=== PATIENT | female | born 1940 | race Caucasian/White ===

== ENCOUNTER 2017-03-09 13:48 | Emergency (ER) | payer OTHER, MEDICAID ==
[2017-03-09 13:54] VITALS: BP 228/107; BMI 39.9
--- NOTE | 2017-03-09 16:41 | DR.GENAD ---
HPI - PCP Primary Care Physician: MAJANO - Complaint/Symptoms Chief Complaint:: PATIENT IS COMPLAINING OF BACK PAIN. PATIENT STATED THAT IT HAS HURT SINCE WEDNESDAY. IT EVEN HURTS TO BREATH - Nurses notes reviewed Nurses Notes Review: Yes - Source History Provided: Patient - Mode of Arrival Mode of Arrival: Ambulatory - Timing Onset of Chief Complaint: 03/06/17 PMH - PMH Past Medical History: Yes Past Medical History: Anxiety, Arthritis, Coronary Artery Disease, Depression, Diabetes, GERD, Hypertension Past Surgical History: Yes Surgical History: Cholecystectomy, Hysterectomy - Family History History of Family Medical Conditions: Yes Family Medical History: Diabetes Mellitus, Cancer, PA, Coronary Artery Disease, Heart Failure, Hypertension - Social History Does patient currently use any type of tobacco product: No Have you used tobacco products in the last 12 months: No Type of Tobacco Use: None Does any household member use tobacco: No Alcohol Use: None Do you use any recreational Drugs:: No - infectious screening In the last 2 months have you had wt loss of >10#?: NO Have you had fever, night sweats or hemotysis?: No Have you traveled outside the country in the last 6 months?: No Isolation: Standard PE - Vital Signs Vitals: Temperature 97.1 F Pulse Rate 71 Respiratory Rate 20 Blood Pressure [Left Arm] 138/68 Blood Pressure [Right Arm] 135/62 Blood Pressure 228/107 O2 Sat by Pulse Oximetry 97 - Discharge Plan Condition: Stable Prescriptions: Cefdinir [Omnicef Cap 300 mg] 300 mg PO BID #20 cap - Follow ups/Referrals Follow ups/Referrals: Jarvis Walker [Primary Care Provider] - 3 days - Instructions Instructions: Pleurisy, [id number], Acute Bronchitis Additional Instructions: RETURN TO ED IF WORSE.
[2017-03-09] MEDS ORDERED: TORADOL 60 MG VIAL IM ONE (17:08)
[2017-03-09] MEDS ORDERED: TORADOL 60 MG VIAL ONE (17:36)
--- NOTE | 2017-03-09 17:36 | RAD ---
Indication: Cough Exam: PA and lateral Findings: The heart is borderline enlarged but unchanged. The pulmonary vessels are normal. No consol idation or effusion is seen. The bones are intact. There are mild linear densities along the lung bas es which are more prominent. The bones are intact. Impression: Stable borderline cardiomegaly . Mild discoid atelectasis or scarring along the lung bases which is more prominent. Reported By:
== END 2017-03-09 18:19 | disposition home or self-care (01) ==
LOC: ER 14:12
DX: R09.1 Pleurisy (principal); J20.9 Acute bronchitis, unspecified; J98.11 Atelectasis
CPT/HCPCS: 71020; 96372; 99282; J1885

== ENCOUNTER 2018-04-15 13:25 | Observation (INO) ==
[2018-04-15] MEDS ORDERED: TUSSIONEX PENNKINETIC SUSP PO PRN (14:00)
[2018-04-15 14:33] LABS: BASOPHILS % (AUTO) 0.6 % (0.2-1.0); EOSINOPHILS # (AUTO) 0.1 x10^3/uL (0.0-0.2); EOSINOPHILS % (AUTO) 1.6 % (0.9-2.9); HEMATOCRIT 41.2 % (36.0-47.0); HEMOGLOBIN 13.9 g/dL (12.0-16.0); LYMPHOCYTES # (AUTO) 1.3 X10^3/uL (1.3-2.9); LYMPHOCYTES % (AUTO) 16.4 % (21.0-51.0); MEAN CORPUSCULAR HEMOGLOBIN 30.7 pg (27.0-34.0); MEAN CORPUSCULAR HGB CONC 33.7 g/dL (33.0-35.0); MEAN CORPUSCULAR VOLUME 91.3 fL (80.0-100.0); MEAN PLATELET VOLUME 7.6 fL (7.4-11.0); MONOCYTES # (AUTO) 0.7 x10^3/uL (0.3-0.8); MONOCYTES % (AUTO) 8.5 % (0.0-13.0); NEUTROPHILS # (AUTO) 5.8 x10^3/uL (2.2-4.8); NEUTROPHILS % (AUTO) 72.9 % (42.0-75.0); PLATELET COUNT 219 X10^3/uL (150.0-450.0); RED BLOOD COUNT 4.51 X10^6/uL (3.5-5.4); RED CELL DISTRIBUTION WIDTH 14.5 % (11.6-16.5)
--- NOTE | 2018-04-15 14:43 | RAD ---
Exam: Portable chest History: 77-year-old female with fever and cough Comparison: Previous chest radiograph from 03/09/2017. Findings: Mild cardiomegaly is again seen. However no significant vascular congestion. Thoracic aorta is tortuous. Lungs are clear with no infiltrate or significant effusion on either side. Impression: Stable cardiomegaly. However no evidence of acute superimposed abnormality is seen on this exam Reported By:
[2018-04-15 14:54] LABS: ALBUMIN 3.2 g/dL (3.4-5.0); CALCIUM 8.6 mg/dL (8.5-10.1); CARBON DIOXIDE 32.8 mmol/L (21-32); COR CA(FOR HYPOALB) 9.2 mg/dL (8.5-10.1); CREATININE 1.25 mg/dL (0.55-1.02); TOTAL PROTEIN 6.9 g/dL (6.4-8.2)
[2018-04-15] MEDS ORDERED: NS 1/2 1000 ML IV 1,000 ML IV ONE (15:08)
[2018-04-15] MEDS: FORTAZ or TAZICEF VIAL INJ IVP SCH ×2 (15:20→21:21)
[2018-04-15] MEDS: LEVAQUIN PREMIX IV 750 MG 750 MG/150 ML BAG IV SCH (15:21)
[2018-04-15] MEDS: NS 1/2 1000 ML IV 1,000 ML IV SCH (15:21)
[2018-04-15] MEDS ORDERED: KLOR-CON PO PRN ×2 (16:13→16:33)
[2018-04-15] MEDS ORDERED: POTASSIUM CHLORIDE LIQ 20 MEQ UDC PO PRN ×2 (16:13→16:33)
[2018-04-15] MEDS ORDERED: MICRO K EXTEN CAP 10 MEQ PO PRN ×2 (16:13→16:33)
[2018-04-15] MEDS ORDERED: POTASSIUM CHL 40 MEQ/NS 0.45% 500 ML IV PRN ×2 (16:13→16:33)
[2018-04-15] MEDS ORDERED: POTASSIUM CHL 60 MEQ/NS 0.45% 500 ML IV PRN ×2 (16:13→16:33)
[2018-04-15] MEDS ORDERED: K-DUR TAB 20 MEQ PO PRN ×2 (16:13→16:33)
[2018-04-15] MEDS ORDERED: K-RIDER 10 MEQ/NS 100 ML 10 MEQ/100 ML BAG IV PRN ×2 (16:13→16:33)
[2018-04-15] MEDS: ROBITUSSIN DM PO SCH ×2 (16:32→21:21)
[2018-04-15] MEDS: DUONEB 0.5 MG/3 MG NEB SCH ×2 (16:40→20:19)
[2018-04-15] MEDS: COREG TAB 6.25 MG PO SCH (21:21)
[2018-04-15] MEDS: NEURONTIN TAB 600 MG PO SCH (21:22)
[2018-04-15] MEDS: CORDARONE TAB 200 MG PO SCH (21:23)
[2018-04-15] MEDS: ELIQUIS PO SCH (21:24)
[2018-04-15] MEDS: SNACK - Diabetic Appropriate PO SCH (21:57)
[2018-04-16] MEDS ORDERED: NS 1/2 1000 ML IV 1,000 ML IV ONE ×2 (04:03→17:38)
[2018-04-16] MEDS: DUONEB 0.5 MG/3 MG NEB SCH ×6 (04:39→21:00)
[2018-04-16] MEDS: NS 1/2 1000 ML IV 1,000 ML IV SCH ×2 (04:45→17:41)
[2018-04-16 05:03] LABS: BASOPHILS % (AUTO) 0.4 % (0.2-1.0); EOSINOPHILS # (AUTO) 0.1 x10^3/uL (0.0-0.2); EOSINOPHILS % (AUTO) 1.6 % (0.9-2.9); HEMATOCRIT 38.9 % (36.0-47.0); HEMOGLOBIN 12.9 g/dL (12.0-16.0); LYMPHOCYTES # (AUTO) 1.5 X10^3/uL (1.3-2.9); LYMPHOCYTES % (AUTO) 21.4 % (21.0-51.0); MEAN CORPUSCULAR HEMOGLOBIN 30.6 pg (27.0-34.0); MEAN CORPUSCULAR VOLUME 92.5 fL (80.0-100.0); MEAN PLATELET VOLUME 7.6 fL (7.4-11.0); MONOCYTES # (AUTO) 0.7 x10^3/uL (0.3-0.8); MONOCYTES % (AUTO) 9.1 % (0.0-13.0); NEUTROPHILS # (AUTO) 4.8 x10^3/uL (2.2-4.8); NEUTROPHILS % (AUTO) 67.5 % (42.0-75.0); PLATELET COUNT 178 X10^3/uL (150.0-450.0); RED CELL DISTRIBUTION WIDTH 14.5 % (11.6-16.5); WHITE BLOOD COUNT 7.1 X10^3/uL (3.6-10.0)
[2018-04-16 05:13] LABS: ALANINE AMINOTRANSFERASE 17 Units/L (12-78); ALBUMIN 2.7 g/dL (3.4-5.0); ALKALINE PHOSPHATASE 63 Units/L (46-116); ASPARTATE AMINO TRANSFERASE 11 Units/L (15-37); BLOOD UREA NITROGEN 13 mg/dL (7-18); CALCIUM 8.2 mg/dL (8.5-10.1); CARBON DIOXIDE 29.8 mmol/L (21-32); CHLORIDE 106 mmol/L (98-107); COR CA(FOR HYPOALB) 9.2 mg/dL (8.5-10.1); CREATININE 1.05 mg/dL (0.55-1.02); SODIUM 143 mmol/L (136-145); eGFR NON BLACK RACES 54 (>60)
--- NOTE | 2018-04-16 05:17 | RAD ---
Chest, 1 view Indication: Shortness of breath Comparison: 04/15/2018 Findings: Cardiac silhouette enlargement is stable. Mild right basilar airspace disease has developed. The left lung is grossly clear. No significant pleural effusion. Impression: Right basilar atelectasis versus developing infiltrate. Reported By:
[2018-04-16] MEDS: FORTAZ or TAZICEF VIAL INJ IVP SCH ×3 (05:30→21:20)
[2018-04-16] MEDS: NEURONTIN TAB 600 MG PO SCH ×3 (05:31→21:20)
[2018-04-16] MEDS ORDERED: ZESTRIL TAB 20 MG ONE (08:11)
[2018-04-16] MEDS: ZESTRIL TAB 20 MG PO SCH (08:15)
[2018-04-16] MEDS: AMARYL TAB 4 MG PO SCH (08:15)
[2018-04-16] MEDS: CORDARONE TAB 200 MG PO SCH ×2 (08:16→21:16)
[2018-04-16] MEDS: COREG TAB 6.25 MG PO SCH ×2 (08:17→21:16)
[2018-04-16] MEDS: JANUVIA PO SCH (08:17)
[2018-04-16] MEDS: LEVAQUIN PREMIX IV 750 MG 750 MG/150 ML BAG IV SCH (08:18)
[2018-04-16] MEDS: ELIQUIS PO SCH ×2 (08:20→21:20)
[2018-04-16] MEDS: ROBITUSSIN DM PO SCH ×4 (08:20→21:20)
[2018-04-16 13:14] VITALS: BMI 40.5
[2018-04-16] MEDS: SNACK - Diabetic Appropriate PO SCH (21:16)
[2018-04-16] MEDS: KLONOPIN TAB 1 MG PO PRN (21:30)
[2018-04-17] MEDS: DUONEB 0.5 MG/3 MG NEB SCH ×6 (04:21→20:24)
[2018-04-17 04:58] LABS: BASOPHILS % (AUTO) 0.4 % (0.2-1.0); EOSINOPHILS # (AUTO) 0.1 x10^3/uL (0.0-0.2); EOSINOPHILS % (AUTO) 1.6 % (0.9-2.9); HEMATOCRIT 36.4 % (36.0-47.0); HEMOGLOBIN 12.4 g/dL (12.0-16.0); LYMPHOCYTES # (AUTO) 1.8 X10^3/uL (1.3-2.9); LYMPHOCYTES % (AUTO) 22.9 % (21.0-51.0); MEAN CORPUSCULAR HGB CONC 33.9 g/dL (33.0-35.0); MEAN CORPUSCULAR VOLUME 91.3 fL (80.0-100.0); MEAN PLATELET VOLUME 7.5 fL (7.4-11.0); MONOCYTES # (AUTO) 0.6 x10^3/uL (0.3-0.8); MONOCYTES % (AUTO) 7.5 % (0.0-13.0); NEUTROPHILS # (AUTO) 5.3 x10^3/uL (2.2-4.8); NEUTROPHILS % (AUTO) 67.6 % (42.0-75.0); PLATELET COUNT 166 X10^3/uL (150.0-450.0); RED BLOOD COUNT 3.99 X10^6/uL (3.5-5.4); RED CELL DISTRIBUTION WIDTH 14.7 % (11.6-16.5); WHITE BLOOD COUNT 7.8 X10^3/uL (3.6-10.0)
[2018-04-17 05:07] LABS: ALANINE AMINOTRANSFERASE 36 Units/L (12-78); ALBUMIN 2.6 g/dL (3.4-5.0); ALKALINE PHOSPHATASE 58 Units/L (46-116); ASPARTATE AMINO TRANSFERASE 31 Units/L (15-37); BLOOD UREA NITROGEN 14 mg/dL (7-18); CALCIUM 8.3 mg/dL (8.5-10.1); CARBON DIOXIDE 27.3 mmol/L (21-32); CHLORIDE 107 mmol/L (98-107); COR CA(FOR HYPOALB) 9.4 mg/dL (8.5-10.1); COR NA(FOR HYPERGLY) 142 mmol/L (136-145); SODIUM 142 mmol/L (136-145); TOTAL PROTEIN 5.8 g/dL (6.4-8.2); eGFR NON BLACK RACES 51 (>60)
[2018-04-17] MEDS ORDERED: NS 1/2 1000 ML IV 1,000 ML IV ONE ×2 (05:27→21:23)
[2018-04-17] MEDS: FORTAZ or TAZICEF VIAL INJ IVP SCH ×3 (06:09→21:06)
[2018-04-17] MEDS: NEURONTIN TAB 600 MG PO SCH ×3 (06:09→21:06)
[2018-04-17] MEDS: NS 1/2 1000 ML IV 1,000 ML IV SCH ×2 (06:50→21:26)
--- NOTE | 2018-04-17 06:58 | RAD ---
Examination: Portable AP chest History: SOB Comparison 04/16/2018 Findings: Mild stable cardiac enlargement. The lungs are now essentially clear. There is no convincing infiltrate, consolidation or focal atelectasis. Impression: Persistent cardiac enlargement. No acute pulmonary or pleural lesion identified. Reported By:
[2018-04-17] MEDS: LEVAQUIN PREMIX IV 750 MG 750 MG/150 ML BAG IV SCH (09:00)
[2018-04-17] MEDS: ROBITUSSIN DM PO SCH ×4 (09:15→21:06)
[2018-04-17] MEDS: COREG TAB 6.25 MG PO SCH ×2 (09:15→21:05)
[2018-04-17] MEDS: ELIQUIS PO SCH ×2 (09:15→21:05)
[2018-04-17] MEDS: CORDARONE TAB 200 MG PO SCH ×2 (09:20→21:13)
[2018-04-17] MEDS: JANUVIA PO SCH (09:30)
[2018-04-17] MEDS ORDERED: ZESTRIL TAB 20 MG ONE (09:37)
[2018-04-17] MEDS: AMARYL TAB 4 MG PO SCH (10:48)
[2018-04-17] MEDS: ZESTRIL TAB 20 MG PO SCH (10:49)
[2018-04-17] MEDS: KLONOPIN TAB 1 MG PO PRN (21:26)
[2018-04-17] MEDS: SNACK - Diabetic Appropriate PO SCH (21:41)
[2018-04-18] MEDS: DUONEB 0.5 MG/3 MG NEB SCH ×3 (00:48→08:43)
[2018-04-18] MEDS: NS 1/2 1000 ML IV 1,000 ML IV SCH ×2 (01:18→05:41)
[2018-04-18 05:20] LABS: BASOPHILS % (AUTO) 0.4 % (0.2-1.0); EOSINOPHILS # (AUTO) 0.2 x10^3/uL (0.0-0.2); EOSINOPHILS % (AUTO) 1.8 % (0.9-2.9); HEMATOCRIT 36.3 % (36.0-47.0); HEMOGLOBIN 12.2 g/dL (12.0-16.0); LYMPHOCYTES # (AUTO) 1.8 X10^3/uL (1.3-2.9); LYMPHOCYTES % (AUTO) 20.2 % (21.0-51.0); MEAN CORPUSCULAR HGB CONC 33.7 g/dL (33.0-35.0); MEAN CORPUSCULAR VOLUME 92.2 fL (80.0-100.0); MEAN PLATELET VOLUME 7.7 fL (7.4-11.0); MONOCYTES # (AUTO) 0.7 x10^3/uL (0.3-0.8); MONOCYTES % (AUTO) 7.5 % (0.0-13.0); NEUTROPHILS # (AUTO) 6.4 x10^3/uL (2.2-4.8); NEUTROPHILS % (AUTO) 70.1 % (42.0-75.0); PLATELET COUNT 173 X10^3/uL (150.0-450.0); RED BLOOD COUNT 3.94 X10^6/uL (3.5-5.4); RED CELL DISTRIBUTION WIDTH 14.5 % (11.6-16.5); WHITE BLOOD COUNT 9.1 X10^3/uL (3.6-10.0)
[2018-04-18] MEDS ORDERED: NS 1/2 1000 ML IV 1,000 ML IV ONE (05:34)
[2018-04-18] MEDS: NEURONTIN TAB 600 MG PO SCH (05:41)
[2018-04-18] MEDS: FORTAZ or TAZICEF VIAL INJ IVP SCH (05:41)
[2018-04-18 05:47] LABS: ALANINE AMINOTRANSFERASE 18 Units/L (12-78); ALBUMIN 2.6 g/dL (3.4-5.0); ALKALINE PHOSPHATASE 59 Units/L (46-116); ASPARTATE AMINO TRANSFERASE 12 Units/L (15-37); BLOOD UREA NITROGEN 16 mg/dL (7-18); CALCIUM 8.4 mg/dL (8.5-10.1); CARBON DIOXIDE 28.7 mmol/L (21-32); COR CA(FOR HYPOALB) 9.5 mg/dL (8.5-10.1); CREATININE 1.05 mg/dL (0.55-1.02); SODIUM 144 mmol/L (136-145); TOTAL PROTEIN 5.8 g/dL (6.4-8.2); eGFR NON BLACK RACES 54 (>60)
[2018-04-18 06:24] LABS: CHLORIDE 105 mmol/L (98-107)
--- NOTE | 2018-04-18 07:00 | RAD ---
History: Shortness of breath Study: AP chest Comparison: Yesterday Findings: The heart remains enlarged with a tortuous descending aorta. The lungs are clear without edema or effusion or congestion demonstrated. Impression: Unchanged cardiomegaly, otherwise unremarkable Reported By:
[2018-04-18] MEDS ORDERED: ZESTRIL TAB 20 MG ONE (08:42)
[2018-04-18] MEDS: LEVAQUIN PREMIX IV 750 MG 750 MG/150 ML BAG IV SCH (09:04)
[2018-04-18] MEDS: ZESTRIL TAB 20 MG PO SCH (09:05)
[2018-04-18] MEDS: ROBITUSSIN DM PO SCH (09:05)
[2018-04-18] MEDS: COREG TAB 6.25 MG PO SCH (09:05)
[2018-04-18] MEDS: AMARYL TAB 4 MG PO SCH (09:05)
[2018-04-18] MEDS: JANUVIA PO SCH (09:05)
[2018-04-18] MEDS: ELIQUIS PO SCH (09:06)
[2018-04-18] MEDS: CORDARONE TAB 200 MG PO SCH (09:06)
[2018-04-18 09:52] VITALS: BP 178/93
== END 2018-04-18 12:20 | disposition home or self-care (01) ==
LOC: MED/SURG 13:25 → INTOOBSV 13:25
PROVIDERS: ADMIT Internal Medicine; ATTEND Internal Medicine
DX: E11.65 Type 2 diabetes mellitus with hyperglycemia; Z79.01 Long term (current) use of anticoagulants; I48.2 Chronic atrial fibrillation; R50.9 Fever, unspecified; Z79.899 Other long term (current) drug therapy; M79.10 Myalgia, unspecified site; I10 Essential (primary) hypertension; J18.0 Bronchopneumonia, unspecified organism
CPT/HCPCS: 36415; 71010; 71045; 80053; 83735; 84132; 85025; 87040; 87070; 87077; 87186; 87205; 87502; 94640; 94760; 96367; 96374; A4222; G0378; J0713; J1956; J7620

== ENCOUNTER 2018-04-21 23:20 | Inpatient (IN) ==
[2018-04-21 23:42] VITALS: BMI 39.5
[2018-04-22] MEDS ORDERED: DUONEB 0.5 MG/3 MG ONE (01:12)
[2018-04-22] MEDS: DUONEB 0.5 MG/3 MG NEB ONE (01:15)
--- NOTE | 2018-04-22 01:36 | DR.AMS ---
HPI Time Seen Time Seen by Provider: 04/21/18 23:31 PCP Primary Care Physician: DELLA HPI Comment HPI Comment: AMS AND AUDIBLE WHEEZING TODAY. DISCHARGE FROM HOSPITAL FOR PNEUMONIA. PLACE ON TESSALON PERLES WHICH IS NEW TO PATIENT AND LEVAQUIN. HER CO NDITION IS GETTING WORSE. Complaint Cheif Complaint Doctors Comments: AMS, AUDIBLE WHEEZING. Chief Complaint:: PTS DAUGHTER STATES THAT SHE WAS DISCHARGED FROM THE HOSPITAL ON WEDNESDAY AND IS BEING TREATED FOR PNU. ON WEDNESDAY PT STARTED BEING CONFUSED AND HAS BEEN PROGRESSIVLY GETTING WORSE. ALSO PTS DAUGHTER REPORTS THAT PT IS WHEEZING AND JUST NOT ACTING RIGHT. Self Treatment fo Chief Complaint: NEB TREATMENTS Reviewed Nurses Notes Reviewed: Yes Source History Provided: Patient and Family Member Mode of Arrival Mode of Arrival: Wheelchair Timing Onset of Chief Complaint: 04/19/18 Came On: Suddenly Symptoms: Unchanged Duration Duration: Constant Duration: Hours Quality Quality: Change in Behavior and Confusion Severity Severity: Moderate Context Recent: Cough and Medication Change (STARTED TAKING TESSALON PERLES FEW DAYS AGO. NEW TO PATIENT.) Associated Signs and Symptoms Associated Signs and Symptoms: Generalized Weakness, Change in Behavior and Confusion PMH PMH Past Medical History: Yes Past Medical History: Anxiety, Arthritis, Coronary Artery Disease, Depression, Diabetes, GERD and Hypertension Past Medical History Comment: AFIB Past Surgical History: Yes Surgical History: Cholecystectomy, Hysterectomy and Tonsillectomy Family History History of Family Medical Conditions: Yes Family Medical History: [place] Social History Does patient currently use any type of tobacco product: No Have you used tobacco products in the last 12 months: No Type of Tobacco Use: None Does any household member use tobacco: No Alcohol Use: None Do you use any recreational Drugs:: No Lives With: Family Lives Where: Home infectious screening In the last 2 months have you had wt loss of >10#?: NO Have you had fever, night sweats or hemotysis?: No Have you traveled outside the country in the last 6 months?: No Isolation: Standard ROS Review of Systems Constitutional: Weakness and Fatigue; negative Fever Eyes: No Symptoms Reported ENTM: Nose Congestion Respiratoy: Moist Cough and Short of Breath Cardiovascular: Chest Pain (TIGHT) Gastrointestinal/Abdominal: No Symptoms Reported Genitourinary: No Symptoms Reported Neurological: Weakness and Problems Walking Musculoskeletal: Muscle Pain Integumentary: Dryness Hematologic/Lymphatic: Easy Bleeding and Easy Bruising Endocrine: Decreased Appetite Psychiatric: No Symptoms Reported All Other Systems: Reviewed and Negative Unable to Obtain Due To: Altered mental status PE Vitals Vital Signs: Temp Pulse Pulse Resp BP BP BP 04/22/18 03:15 77 04/22/18 03:11 81 130/66 04/22/18 03:07 82 207/104 04/22/18 03:06 82 04/22/18 02:45 86 04/22/18 02:30 81 157/85 04/22/18 02:15 77 04/22/18 02:07 81 04/22/18 02:01 80 20 154/88 04/22/18 01:30 81 18 120/67 04/22/18 01:00 82 22 116/69 04/22/18 00:38 86 20 119/64 04/21/18 23:31 97.5 F L 84 18 127/68 04/18/18 08:00 178/93 178/93 04/17/18 04:00 168/77 12/19/15 04:00 135/62 Pulse Ox 04/22/18 03:15 93 L 04/22/18 03:11 94 L 04/22/18 03:07 92 L 04/22/18 03:06 94 L 04/22/18 02:45 90 L 04/22/18 02:30 93 L 04/22/18 02:15 94 L 04/22/18 02:07 94 L 04/22/18 02:01 93 L 04/22/18 01:30 93 L 04/22/18 01:00 94 L 04/22/18 00:38 95 04/21/18 23:31 96 04/18/18 08:00 04/17/18 04:00 12/19/15 04:00 General Limitations: Altered Mental Status General Appearance: Alert and In No Apparent Distress Head Head Exam: Normal Inspection Head Exam Physical: Other (NONE REPORTED) Eyes Eye exam: PERRL and EOMI; negative Scleral Icterus and Conjunctival Injection Pupils: Regular, Round: Bilateral and Reactive: Bilateral ENT ENT Exam: Normal Exam External Ear Exam: Normal External Inspection TM/Canal Exam: Bilateral: Normal Nose Exam: Normal Nose Exam Mouth Exam: Normal Inspection Throat Exam: Normal Inspection Neck Neck Exam: Normal Inspection; negative Tenderness, Meningismus and Lymphadenopathy Chest Chest Inspection: Symmetric Chest Wall Rise and Other (AUDIBLE WHEEZING.) Respiratory Respiratory Exam: Respiratory Distress Respiratory Exam: Bilateral: Wheezing and Bilateral: Rhonchi, Left: Wheezing, Right: Wheezing, Upper: Wheezing and Lower: Wheezing and Lower: Rhonchi Cardiovascular Cardiovascular Exam: Regular Rate and Normal Rhythm Abdominal Exam Abdominal Exam: Normal Inspection, Normal Bowel Sounds and Soft Extremities Extremities Exam: Edema Back Back Exam: Normal Inspection Neurological Neurological Exam: Alert and CN II-XII Intact; negative Oriented X3 and Motor Sensory Deficit Patient Oriented To: Person and Place; negative Time Speech: Fluid Speech (SLOW SPEECH) Cranial Nerve Exam: EOM Function (II, III, IV, ): Normal, Facial Palsy (VII): Normal, Gag reflex (XI): Normal and Tongue Deviation: Normal Motor Strength - LUE: 5/5 Motor Strength - RUE: 5/5 Motor Strength - LLE: 5/5 Upper Motor Neuron Exam: Babinski Sign: Normal Skin Skin Exam: Dry MDM Additional Information Obtained Additional Information Obtained From: Old Records and Family Differential Diagnosis Metabolic: Dehydration, Hypoglycemia and Hyponatremia Structural: CVA and Mass Lesion Infectious: Sepsis COURSE Treatment Treatment: SEE ORDERS. Consultation Consultation Comments: DISCUSSPATIENT WITH DR. HULL. HE WILL ADMIT PATIENT. Education/Counseling Education/Counseling: Patient and Family Educated On: Diagnosis ROR Labs Reviewed Result Diagrams: 04/22/18 01:51 04/22/18 01:51 Laboratory: WBC 11.6 X10^3/uL (3.6-10.0) H 04/22/18 01:51 RBC 4.30 X10^6/uL (3.5-5.4) 04/22/18 01:51 Hgb 13.1 g/dL (12.0-16.0) 04/22/18 01:51 Hct 39.6 % (36.0-47.0) 04/22/18 01:51 MCV 92.0 fL (80.0-100.0) 04/22/18 01:51 MCH 30.5 pg (27.0-34.0) 04/22/18 01:51 MCHC 33.1 g/dL (33.0-35.0) 04/22/18 01:51 RDW 15.1 % (11.6-16.5) 04/22/18 01:51 Plt Count 239 X10^3/uL (150.0-450.0) 04/22/18 01:51 MPV 7.7 fL (7.4-11.0) 04/22/18 01:51 Neut % (Auto) 67.1 % (42.0-75.0) 04/22/18 01:51 Lymph % (Auto) 22.3 % (21.0-51.0) 04/22/18 01:51 [place] % (Auto) 8.2 % (0.0-13.0) 04/22/18 01:51 Eos % (Auto) 1.3 % (0.9-2.9) 04/22/18 01:51 Baso % (Auto) 1.1 % (0.2-1.0) H 04/22/18 01:51 Neut # (Auto) 7.8 x10^3/uL (2.2-4.8) H 04/22/18 01:51 Lymph # (Auto) 2.6 X10^3/uL (1.3-2.9) 04/22/18 01:51 [place] # (Auto) 0.9 x10^3/uL (0.3-0.8) H 04/22/18 01:51 Eos # (Auto) 0.2 x10^3/uL (0.0-0.2) 04/22/18 01:51 Baso # (Auto) 0.1 X10^3/uL (0.0-0.1) 04/22/18 01:51 Absolute Nucleated RBC 0.0 /100WBC 04/22/18 01:51 Sample Site Rbra 04/22/18 01:40 ABG pH 7.440 (7.35-7.45) 04/22/18 01:40 ABG pCO2 45.0 mmHg (35.0-45.0) 04/22/18 01:40 ABG pO2 79.0 mmHg (80.0-100.0) L 04/22/18 01:40 ABG HCO3 30.6 mmol/L (22-26) H* 04/22/18 01:40 ABG O2 Saturation 96.0 % (90-100) 04/22/18 01:40 ABG Base Excess 5.6 mmol/L (-2.0-2.0) H 04/22/18 01:40 Pete Test Na 04/22/18 01:40 A-a Gradient 14.0 mmHg 04/22/18 01:40 FiO2 21.0 04/22/18 01:40 Blood Gas Comments Chinmay abg well-mtf 04/22/18 01:40 Sodium 141 mmol/L (136-145) 04/22/18 01:51 Corrected Sodium 142 mmol/L (136-145) 04/22/18 01:51 Potassium 4.0 mmol/L (3.5-5.1) 04/22/18 01:51 Chloride 105 mmol/L (98-107) 04/22/18 01:51 Carbon Dioxide 29.4 mmol/L (21-32) 04/22/18 01:51 BUN 25 mg/dL (7-18) H 04/22/18 01:51 Creatinine 1.28 mg/dL (0.55-1.02) H 04/22/18 01:51 Est GFR (MDRD) Af Amer 52 (>60) L 04/22/18 01:51 Est GFR (MDRD) Non-Af 43 (>60) L 04/22/18 01:51 Glucose 151 mg/dL (65-99) H 04/22/18 01:51 Calcium 8.9 mg/dL (8.5-10.1) 04/22/18 01:51 Corrected Calcium 9.7 mg/dL (8.5-10.1) 04/22/18 01:51 Total Bilirubin 0.30 mg/dL (0.2-1.0) 04/22/18 01:51 AST 12 Units/L (15-37) L 04/22/18 01:51 ALT 19 Units/L (12-78) 04/22/18 01:51 Alkaline Phosphatase 61 Units/L (46-116) 04/22/18 01:51 Creatine Kinase 48 Units/L (26-192) 04/22/18 01:51 CK-MB (CK-2) < 1.0 ng/mL (0-4.0) 04/22/18 01:51 CK/CKMB % Calc 2.1 % (<4) 04/22/18 01:51 Troponin I < 0.02 ng/mL (0-1.5) 04/22/18 01:51 Total Protein 6.5 g/dL (6.4-8.2) 04/22/18 01:51 Albumin 3.0 g/dL (3.4-5.0) L 04/22/18 01:51 Globulin 3.5 g/dL (2.5-4.5) 04/22/18 01:51 Albumin/Globulin Ratio 0.9 Ratio (1.1-2.1) L 04/22/18 01:51 Specimen Type Clean catch urine 04/22/18 03:26 Urine Color Dark yellow (YELLOW) 04/22/18 03:26 Urine Appearance Slightly hazy (CLEAR) 04/22/18 03:26 Urine pH 5.0 (5.0 - 8.0) 04/22/18 03:26 Ur Specific [place] 1.030 (1.000-1.030) 04/22/18 03:26 Urine Protein 1+ (NEGATIVE) 04/22/18 03:26 Urine Glucose (UA) Negative (NEGATIVE) 04/22/18 03:26 Urine Ketones Negative (NEGATIVE) 04/22/18 03:26 Urine Occult Blood Negative (NEGATIVE) 04/22/18 03:26 Urine Nitrite Negative (NEGATIVE) 04/22/18 03:26 Urine Bilirubin Negative (NEGATIVE) 04/22/18 03:26 Urine Urobilinogen 1+ (NORMAL) 04/22/18 03:26 Ur Leukocyte Esterase 1+ (NEGATIVE) 04/22/18 03:26 Urine RBC 0-2 /HPF (NONE SEEN) 04/22/18 03:26 Urine WBC 3-5 /HPF (NONE SEEN) 04/22/18 03:26 Ur Squamous Epith Cells Rare /HPF (NEGATIVE) 04/22/18 03:26 Calcium Oxalate Crystal Moderate /HPF (NEGATIVE) 04/22/18 03:26 Urine Bacteria Negative /HPF (NEGATIVE) 04/22/18 03:26 Hyaline Casts Rare /LPF (NEGATIVE) 04/22/18 03:26 Urine Mucus Few /HPF (NEGATIVE) 04/22/18 03:26 Ur Culture Indicated? No/not indicated 04/22/18 03:26 XRAY XRAY Interpreted by: Radiologist XRAY Findings: REPORT ON RECORD NOTED AND DISCUSS WITH PATIENT AND HER DAUGHTER. EKG Rate: 83 [place]: Normal Rhythm: NSR and PACs ST: Ant
[2018-04-22 01:55] LABS: ABG BASE EXCESS 5.6 mmol/L (-2.0-2.0); ABG HCO3 30.6 mmol/L (22-26)
[2018-04-22 01:59] LABS: BASOPHILS # (AUTO) 0.1 X10^3/uL (0.0-0.1); BASOPHILS % (AUTO) 1.1 % (0.2-1.0); EOSINOPHILS # (AUTO) 0.2 x10^3/uL (0.0-0.2); EOSINOPHILS % (AUTO) 1.3 % (0.9-2.9); HEMATOCRIT 39.6 % (36.0-47.0); HEMOGLOBIN 13.1 g/dL (12.0-16.0); LYMPHOCYTES # (AUTO) 2.6 X10^3/uL (1.3-2.9); LYMPHOCYTES % (AUTO) 22.3 % (21.0-51.0); MEAN CORPUSCULAR HEMOGLOBIN 30.5 pg (27.0-34.0); MEAN CORPUSCULAR HGB CONC 33.1 g/dL (33.0-35.0); MEAN PLATELET VOLUME 7.7 fL (7.4-11.0); MONOCYTES # (AUTO) 0.9 x10^3/uL (0.3-0.8); MONOCYTES % (AUTO) 8.2 % (0.0-13.0); NEUTROPHILS # (AUTO) 7.8 x10^3/uL (2.2-4.8); NEUTROPHILS % (AUTO) 67.1 % (42.0-75.0); PLATELET COUNT 239 X10^3/uL (150.0-450.0); RED CELL DISTRIBUTION WIDTH 15.1 % (11.6-16.5); WHITE BLOOD COUNT 11.6 X10^3/uL (3.6-10.0)
--- NOTE | 2018-04-22 02:07 | RAD ---
Chest, 1 view Indication: Shortness of breath Comparison: 04/18/2018 Findings: There is stable cardiac silhouette enlargement. There is unchanged minimal scarring versus atelectasis of the right lung base. The lungs are otherwise grossly clear without overt edema or dense infiltrates. No large effusion. Impression: Stable cardiomegaly without acute chest process or significant change from prior. Reported By:
[2018-04-22 02:18] LABS: BLOOD UREA NITROGEN 25 mg/dL (7-18); CALCIUM 8.9 mg/dL (8.5-10.1); CARBON DIOXIDE 29.4 mmol/L (21-32); CHLORIDE 105 mmol/L (98-107); COR NA(FOR HYPERGLY) 142 mmol/L (136-145); CREATININE 1.28 mg/dL (0.55-1.02); SODIUM 141 mmol/L (136-145); TROPONIN I < 0.02 ng/mL (0-1.5); eGFR NON BLACK RACES 43 (>60)
[2018-04-22 02:22] LABS: ALANINE AMINOTRANSFERASE 19 Units/L (12-78); ALKALINE PHOSPHATASE 61 Units/L (46-116); ASPARTATE AMINO TRANSFERASE 12 Units/L (15-37); CKMB % 2.1 % (<4); COR CA(FOR HYPOALB) 9.7 mg/dL (8.5-10.1); CREATINE KINASE 48 Units/L (26-192); CREATINE KINASE MB < 1.0 ng/mL (0-4.0); TOTAL PROTEIN 6.5 g/dL (6.4-8.2)
--- NOTE | 2018-04-22 03:12 | CT ---
CT head without contrast Indication: Altered mental status Comparison: 02/10/2015 Technique: CT images of the head were obtained without contrast. Automatic exposure control was utilized. Findings: There is moderate generalized brain atrophy with concomitant ventricular and sulcal enlargement. Patchy areas of white matter hypoattenuation are similar to prior and most compatible with chronic microangiopathy. There is no acute bleed, mass effect, or abnormal extra-axial collection. No acute osseous abnormality. The visualized paranasal sinuses and mastoid air cells are clear. Impression: No acute intracranial abnormality. Reported By:
[2018-04-22 03:34] LABS: BILIRUBIN,URINE NEGATIVE (NEGATIVE); BLOOD/HEMOGLOBIN,URINE NEGATIVE (NEGATIVE); GLUCOSE, URINE NEGATIVE (NEGATIVE); KETONES,URINE NEGATIVE (NEGATIVE); LEUKOCYTE ESTERASE ,URINE 1+ (NEGATIVE); NITRITES,URINE NEGATIVE (NEGATIVE); PROTEIN,URINE 1+ (NEGATIVE); UROBILINOGEN,URINE 1+ (NORMAL)
[2018-04-22 03:44] LABS: APPEARANCE,URINE SLIGHTLY HAZY (CLEAR); BACTERIA,URINE NEGATIVE /HPF (NEGATIVE); CALCIUM OXALATE CRYSTALS,UR MODERATE /HPF (NEGATIVE); COLOR,URINE DARK YELLOW (YELLOW); HYALINE CASTS, URINE RARE /LPF (NEGATIVE); MUCUS,URINE FEW /HPF (NEGATIVE); RBC,URINE 0-2 /HPF (NONE SEEN); SQUAMOUS EPITHELIAL CELL,UR RARE /HPF (NEGATIVE)
[2018-04-22] MEDS: NS 1000 ML 1,000 ML IV SCH ×2 (05:42→21:35)
[2018-04-22] MEDS ORDERED: NS 1000 ML 1,000 ML ONE ×2 (05:42→05:52)
[2018-04-22 08:31] LABS: CKMB % 2.3 % (<4); CREATINE KINASE 44 Units/L (26-192); CREATINE KINASE MB < 1.0 ng/mL (0-4.0); TROPONIN I < 0.02 ng/mL (0-1.5)
[2018-04-22] MEDS ORDERED: XANAX PO ONE (11:28)
[2018-04-22] MEDS ORDERED: XANAX ONE (11:30)
[2018-04-22] MEDS: COREG TAB 3.125 MG PO SCH ×2 (12:26→21:34)
[2018-04-22] MEDS ORDERED: ROBITUSSIN DM PO PRN (13:00)
--- NOTE | 2018-04-22 13:08 | MRI ---
MRI Brain without contrast HISTORY: Altered mental status with weakness Comparison: CT performed earlier on same day Technique: Multiplanar multi-sequence MRI of the brain was obtained utilizing standard departmental protocol. Sagittal and axial T1 weighted images were obtained. Axial T2 and flair weighted images were performed as well. Axial diffusion weighted and ADC trace mapping was performed. Findings: Generalized cerebral atrophy with mild bilateral periventricular and deep white matter FLAIR and T2 signal hyperintensity. Small amount fluid is noted within the right mastoid air cells. The midline structures appear unremarkable. The evaluation of the brain parenchyma demonstrates no abnormal signal characteristics to suggest intraparenchymal mass or hemorrhage. No extra-axial fluid collections are observed. The ventricular system appears symmetric and nondilated. The CP angle is normal in its appearance without brainstem mass or evidence for acoustic neuroma. The flow voids on both T1 and T2 weighted imaging appear unremarkable. Evaluation of the diffusion weighted imaging does not demonstrate abnormal signal characteristics to suggest acute ischemic change. The extracranial structures are unremarkable. IMPRESSION: 1. No acute intracranial abnormality. 2. Small amount fluid opacification within the right mastoid air cells needs clinical correlation. 3. Generalized cerebral atrophy with bilateral mild periventricular and deep white matter FLAIR and T2 signal hyperintensity is nonspecific however likely resent sequela of chronic microvascular ischemic disease. Reported By:
[2018-04-22 14:26] LABS: CREATINE KINASE 37 Units/L (26-192); CREATINE KINASE MB < 1.0 ng/mL (0-4.0); TROPONIN I < 0.02 ng/mL (0-1.5)
[2018-04-22 14:27] LABS: CKMB % 2.7 % (<4)
[2018-04-22] MEDS: DUONEB 0.5 MG/3 MG NEB SCH (20:32)
[2018-04-22] MEDS: LEVAQUIN PREMIX IV 750 MG 750 MG/150 ML BAG IV SCH (21:33)
[2018-04-22] MEDS: CORDARONE TAB 200 MG PO SCH (21:34)
[2018-04-22] MEDS: JANUVIA PO SCH (21:34)
[2018-04-22] MEDS: TESSALON PERLES PO SCH ×2 (21:34→21:36)
[2018-04-22] MEDS: AMARYL TAB 4 MG PO SCH (21:34)
[2018-04-22] MEDS: ELIQUIS PO SCH (21:35)
[2018-04-22] MEDS: TUSSIONEX PENNKINETIC SUSP PO PRN (21:36)
[2018-04-22] MEDS: SNACK - Diabetic Appropriate PO SCH (21:36)
[2018-04-23] MEDS: TESSALON PERLES PO SCH ×3 (05:24→21:01)
[2018-04-23 05:27] LABS: BASOPHILS % (AUTO) 0.3 % (0.2-1.0); EOSINOPHILS # (AUTO) 0.1 x10^3/uL (0.0-0.2); EOSINOPHILS % (AUTO) 1.5 % (0.9-2.9); HEMATOCRIT 34.4 % (36.0-47.0); HEMOGLOBIN 11.7 g/dL (12.0-16.0); LYMPHOCYTES # (AUTO) 1.8 X10^3/uL (1.3-2.9); LYMPHOCYTES % (AUTO) 18.6 % (21.0-51.0); MEAN CORPUSCULAR HEMOGLOBIN 31.3 pg (27.0-34.0); MEAN CORPUSCULAR HGB CONC 33.9 g/dL (33.0-35.0); MEAN CORPUSCULAR VOLUME 92.3 fL (80.0-100.0); MEAN PLATELET VOLUME 7.9 fL (7.4-11.0); MONOCYTES # (AUTO) 0.8 x10^3/uL (0.3-0.8); MONOCYTES % (AUTO) 8.3 % (0.0-13.0); NEUTROPHILS # (AUTO) 6.8 x10^3/uL (2.2-4.8); NEUTROPHILS % (AUTO) 71.3 % (42.0-75.0); PLATELET COUNT 181 X10^3/uL (150.0-450.0); RED BLOOD COUNT 3.73 X10^6/uL (3.5-5.4); RED CELL DISTRIBUTION WIDTH 14.8 % (11.6-16.5); WHITE BLOOD COUNT 9.6 X10^3/uL (3.6-10.0)
[2018-04-23 05:38] LABS: ALANINE AMINOTRANSFERASE 18 Units/L (12-78); ALBUMIN 2.5 g/dL (3.4-5.0); ALKALINE PHOSPHATASE 54 Units/L (46-116); ASPARTATE AMINO TRANSFERASE 14 Units/L (15-37); BLOOD UREA NITROGEN 22 mg/dL (7-18); CALCIUM 8.2 mg/dL (8.5-10.1); CARBON DIOXIDE 29.6 mmol/L (21-32); CHLORIDE 107 mmol/L (98-107); CHOL/HDL RATIO 3.6 (0.0-5.0); CHOLESTEROL 155 mg/dL (0-200); COR CA(FOR HYPOALB) 9.4 mg/dL (8.5-10.1); HDL CHOLESTEROL 43 mg/dL (40-60); SODIUM 143 mmol/L (136-145); TOTAL PROTEIN 5.6 g/dL (6.4-8.2); TRIGLYCERIDES 86 mg/dL (0-150); eGFR NON BLACK RACES 57 (>60)
[2018-04-23] MEDS: DUONEB 0.5 MG/3 MG NEB SCH ×4 (08:52→21:32)
[2018-04-23] MEDS: JANUVIA PO SCH (09:02)
[2018-04-23] MEDS: COREG TAB 3.125 MG PO SCH ×2 (09:02→20:28)
[2018-04-23] MEDS: ELIQUIS PO SCH ×2 (09:02→20:28)
[2018-04-23] MEDS: CORDARONE TAB 200 MG PO SCH (09:02)
[2018-04-23] MEDS: LEVAQUIN PREMIX IV 750 MG 750 MG/150 ML BAG IV SCH (09:02)
[2018-04-23] MEDS: AMARYL TAB 4 MG PO SCH (09:03)
[2018-04-23] MEDS: NS 1000 ML 1,000 ML IV SCH ×2 (09:26→20:29)
[2018-04-23] MEDS: DUONEB 0.5 MG/3 MG NEB ONE (17:19)
[2018-04-23] MEDS: SNACK - Diabetic Appropriate PO SCH (20:28)
[2018-04-23] MEDS: TUSSIONEX PENNKINETIC SUSP PO PRN (20:29)
--- NOTE | 2018-04-23 21:38 | PCM.PROG ---
Progress Note - Progress Note for Day of Date of Exam: 04/23/18 - Subjective Subjective: WAS ADMITTED FOR ALTERED MENTAL STATUS AND GENERALIZED WEAKNESS. SHE WAS RECENTLY DISCHARGE FROM THE HOSPITAL FOR BRONCHOPNEUMONIA. SHE CONTINUES WITH SHORTNESS OF BREATH AND A NON-PRODUCTIVE COUGH AT TIMES. FAMILY REPORTS THAT SHE CONTINUES WITH CONFUSION AND DISORIENTATION AT TIMES. IT IS INTERMITTENT. ON EXAMINATION, HEART IS REGULAR IN RATE AND RHYTHM. BILATERAL LUNGS ARE NOTED WITH DIMINISHED LUNG SOUNDS THROUGHOUT. ABDOMEN IS ROUND, SOFT, AND NON-TENDER WITH NORMAL BOWEL SOUNDS NOTED IN ALL QUADRANTS. HER VITALS THIS MORNING ARE 97.6-74-20-97%-137/76. LABS WERE OBTAINED. ABNORMAL LAB VALUES INCLUDE THE FOLLOWIN.7, HCT 34.4, BUN 22, CALCIUM 8.2, AST 14, TOTAL PROTE IN 5.6, ALBUMIN 2.5. CARDIAC ENZYMES HAVE BEEN WITHIN NORMAL LIMITS. WE OBTAINED A BRAIN MRI YESTERDAY. IT REVEALED: No acute intracranial abnormality. Small amount fluid opacification within the right mastoid air cells needs clinical correlation. Generalized cerebral atrophy with bilateral mild periventricular and deep white matter FLAIR and T2 signal hyperintensity is nonspecific however likely resent sequela of chronic microvascular ischemic disease. SHE IS ALREADY TAKING ELIQUIS 5MG PO BID. WE WILL CONTINUE WITH IV HYDRATION, BLOOD PRESSURE AND BLOOD SUGAR CONTROL, IV ANTIBIOTICS, AND RESPIRATORY TREATMENTS TODAY. OTHERWISE, WE WILL FOLLOW UP WITH AM LABS AND CONTINUE TO MONITOR. - Past Medical Family Social History Past Med/Fam/Surg Hx: No changes since H&P Allergies: Allergies No Known Drug Allergies Allergy (Verified 04/15/18 14:29) - Review of Systems ROS: No change since H&P - Vital Signs and I&O's Vital Signs: Temperature 97.5 F Pulse Rate [Right] 91 Pulse Rate 77 Respiratory Rate 18 Blood Pressure [Right Arm] 154/88 Blood Pressure [Left Arm] 134/64 Blood Pressure [Right Arm] 135/62 Blood Pressure 105/54 O2 Sat by Pulse Oximetry 96 Intake and Output: Intake & Output 04/21/18 04/22/18 04/23/18 04/24/18 11:59 11:59 11:59 11:59 Intake Total 0 / 0 2230 / 2230 840 / 840 Balance 0 / 0 2230 / 2230 840 / 840 - Physical Exam Oriented: Person Eyes: Normal Ear: Normal Nose: Normal Throat: Normal Respiratory: Generalized, Diminished Cardiovascular: Normal : Normal Auscultation: Bowel Sounds: Normal Palpation: Normal Tenderness: Normal Skin: Normal Musculoskeletal: Normal Psychiatric: Normal Mood Description: Calm Affect: Normal Speech Pattern: Clear, Appropriate - Laboratory and Diagnostics Result Diagrams: 04/23/18 04:23 04/23/18 04:23 Labs: Laboratory WBC 9.6 X10^3/uL (3.6-10.0) 04/23/18 04:23 RBC 3.73 X10^6/uL (3.5-5.4) 04/23/18 04:23 Hgb 11.7 g/dL (12.0-16.0) L 04/23/18 04:23 Hct 34.4 % (36.0-47.0) L 04/23/18 04:23 MCV 92.3 fL (80.0-100.0) 04/23/18 04:23 MCH 31.3 pg (27.0-34.0) 04/23/18 04:23 MCHC 33.9 g/dL (33.0-35.0) 04/23/18 04:23 RDW 14.8 % (11.6-16.5) 04/23/18 04:23 Plt Count 181 X10^3/uL (150.0-450.0) 04/23/18 04:23 MPV 7.9 fL (7.4-11.0) 04/23/18 04:23 Neut % (Auto) 71.3 % (42.0-75.0) 04/23/18 04:23 Lymph % (Auto) 18.6 % (21.0-51.0) L 04/23/18 04:23 [place] % (Auto) 8.3 % (0.0-13.0) 04/23/18 04:23 Eos % (Auto) 1.5 % (0.9-2.9) 04/23/18 04:23 Baso % (Auto) 0.3 % (0.2-1.0) 04/23/18 04:23 Neut # (Auto) 6.8 x10^3/uL (2.2-4.8) H 04/23/18 04:23 Lymph # (Auto) 1.8 X10^3/uL (1.3-2.9) 04/23/18 04:23 [place] # (Auto) 0.8 x10^3/uL (0.3-0.8) 04/23/18 04:23 Eos # (Auto) 0.1 x10^3/uL (0.0-0.2) 04/23/18 04:23 Baso # (Auto) 0.0 X10^3/uL (0.0-0.1) 04/23/18 04:23 Absolute Nucleated RBC 0.1 /100WBC 04/23/18 04:23 Sample Site Rbra 04/22/18 01:40 ABG pH 7.440 (7.35-7.45) 04/22/18 01:40 ABG pCO2 45.0 mmHg (35.0-45.0) 04/22/18 01:40 ABG pO2 79.0 mmHg (80.0-100.0) L 04/22/18 01:40 ABG HCO3 30.6 mmol/L (22-26) H* 04/22/18 01:40 ABG O2 Saturation 96.0 % (90-100) 04/22/18 01:40 ABG Base Excess 5.6 mmol/L (-2.0-2.0) H 04/22/18 01:40 Pete Test Na 04/22/18 01:40 A-a Gradient 14.0 mmHg 04/22/18 01:40 FiO2 21.0 04/22/18 01:40 Blood Gas Comments Chinmay abg well-mtf 04/22/18 01:40 Sodium 143 mmol/L (136-145) 04/23/18 04:23 Corrected Sodium TNP 04/23/18 04:23 Potassium 3.8 mmol/L (3.5-5.1) 04/23/18 04:23 Chloride 107 mmol/L (98-107) 04/23/18 04:23 Carbon Dioxide 29.6 mmol/L (21-32) 04/23/18 04:23 BUN 22 mg/dL (7-18) H 04/23/18 04:23 Creatinine 1.00 mg/dL (0.55-1.02) 04/23/18 04:23 Est GFR (MDRD) Af Amer > 60 (>60) 04/23/18 04:23 Est GFR (MDRD) Non-Af 57 (>60) L 04/23/18 04:23 Glucose 97 mg/dL (65-99) 04/23/18 04:23 POC Glucose (mg/dL) 153 mg/dL (65-99) H 04/22/18 20:08 Calcium 8.2 mg/dL (8.5-10.1) L 04/23/18 04:23 Corrected Calcium 9.4 mg/dL (8.5-10.1) 04/23/18 04:23 Total Bilirubin 0.20 mg/dL (0.2-1.0) 04/23/18 04:23 AST 14 Units/L (15-37) L 04/23/18 04:23 ALT 18 Units/L (12-78) 04/23/18 04:23 Alkaline Phosphatase 54 Units/L (46-116) 04/23/18 04:23 Creatine Kinase 37 Units/L (26-192) 04/22/18 13:57 CK-MB (CK-2) < 1.0 ng/mL (0-4.0) 04/22/18 13:57 CK/CKMB % Calc 2.7 % (<4) 04/22/18 13:57 Troponin I < 0.02 ng/mL (0-1.5) 04/22/18 13:57 Total Protein 5.6 g/dL (6.4-8.2) L 04/23/18 04:23 Albumin 2.5 g/dL (3.4-5.0) L 04/23/18 04:23 Globulin 3.1 g/dL (2.5-4.5) 04/23/18 04:23 Albumin/Globulin Ratio 0.8 Ratio (1.1-2.1) L 04/23/18 04:23 Triglycerides 86 mg/dL (0-150) 04/23/18 04:23 Cholesterol 155 mg/dL (0-200) 04/23/18 04:23 LDL Cholesterol, Calc 95 mg/dL (0-100) 04/23/18 04:23 HDL Cholesterol 43 mg/dL (40-60) 04/23/18 04:23 Cholesterol/HDL Ratio 3.6 (0.0-5.0) 04/23/18 04:23 Specimen Type Clean catch urine 02/08/19 03:26 Urine Color Dark yellow (YELLOW) 04/22/18 03:26 Urine Appearance Slightly hazy (CLEAR) 04/22/18 03:26 Urine pH 5.0 (5.0 - 8.0) 04/22/18 03:26 Ur Specific [place] 1.030 (1.000-1.030) 04/22/18 03:26 Urine Protein 1+ (NEGATIVE) 04/22/18 03:26 Urine Glucose (UA) Negative (NEGATIVE) 04/22/18 03:26 Urine Ketones Negative (NEGATIVE) 04/22/18 03:26 Urine Occult Blood Negative (NEGATIVE) 04/22/18 03:26 Urine Nitrite Negative (NEGATIVE) 04/22/18 03:26 Urine Bilirubin Negative (NEGATIVE) 04/22/18 03:26 Urine Urobilinogen 1+ (NORMAL) 04/22/18 03:26 Ur Leukocyte Esterase 1+ (NEGATIVE) 04/22/18 03:26 Urine RBC 0-2 /HPF (NONE SEEN) 04/22/18 03:26 Urine WBC 3-5 /HPF (NONE SEEN) 04/22/18 03:26 Ur Squamous Epith Cells Rare /HPF (NEGATIVE) 04/22/18 03:26 Calcium Oxalate Crystal Moderate /HPF (NEGATIVE) 04/22/18 03:26 Urine Bacteria Negative /HPF (NEGATIVE) 04/22/18 03:26 Hyaline Casts Rare /LPF (NEGATIVE) 04/22/18 03:26 Urine Mucus Few /HPF (NEGATIVE) 04/22/18 03:26 Ur Culture Indicated? No/not indicated 04/22/18 03:26 - Plan (1) TIA (transient ischemic attack) Status: Acute Plan: ELIQUIS 5MG PO BID, CONTINUE TO MONITOR (2) Bronchitis Status: Acute Plan: IV LEVAQUIN, RESPIRATORY TX, SUPPLEMENTAL OXYGEN, CONTINUE TO MONITOR (3) Diabetes mellitus, type 2 Status: Chronic Qualifiers: Diabetes mellitus terminal system operator insulin use: with fdc use Diabetes mellitus complication status: without complication Qualified Code(s): E11.9 - Type 2 diabetes mellitus without complications; Z79.4 - jail (current) use of insulin Plan: MONITOR OTBS, CONTINUE HOME MEDS (4) Hypertension Status: Acute Qualifiers: Hypertension type: essential hypertension Plan: CONTINUE HOME MEDS
[2018-04-24] MEDS: TESSALON PERLES PO SCH ×3 (05:00→21:22)
[2018-04-24 05:21] LABS: BASOPHILS % (AUTO) 0.4 % (0.2-1.0); EOSINOPHILS # (AUTO) 0.1 x10^3/uL (0.0-0.2); EOSINOPHILS % (AUTO) 1.1 % (0.9-2.9); HEMATOCRIT 36.2 % (36.0-47.0); HEMOGLOBIN 11.8 g/dL (12.0-16.0); LYMPHOCYTES # (AUTO) 1.6 X10^3/uL (1.3-2.9); LYMPHOCYTES % (AUTO) 18.3 % (21.0-51.0); MEAN CORPUSCULAR HEMOGLOBIN 30.5 pg (27.0-34.0); MEAN CORPUSCULAR HGB CONC 32.7 g/dL (33.0-35.0); MEAN CORPUSCULAR VOLUME 93.2 fL (80.0-100.0); MEAN PLATELET VOLUME 7.8 fL (7.4-11.0); MONOCYTES # (AUTO) 0.7 x10^3/uL (0.3-0.8); MONOCYTES % (AUTO) 7.9 % (0.0-13.0); NEUTROPHILS # (AUTO) 6.3 x10^3/uL (2.2-4.8); NEUTROPHILS % (AUTO) 72.3 % (42.0-75.0); PLATELET COUNT 177 X10^3/uL (150.0-450.0); RED BLOOD COUNT 3.88 X10^6/uL (3.5-5.4); RED CELL DISTRIBUTION WIDTH 14.7 % (11.6-16.5); WHITE BLOOD COUNT 8.8 X10^3/uL (3.6-10.0)
[2018-04-24 05:32] LABS: ALANINE AMINOTRANSFERASE 20 Units/L (12-78); ALBUMIN 2.7 g/dL (3.4-5.0); ALKALINE PHOSPHATASE 62 Units/L (46-116); ASPARTATE AMINO TRANSFERASE 15 Units/L (15-37); BLOOD UREA NITROGEN 15 mg/dL (7-18); CALCIUM 8.4 mg/dL (8.5-10.1); CARBON DIOXIDE 31.2 mmol/L (21-32); CHLORIDE 108 mmol/L (98-107); COR CA(FOR HYPOALB) 9.4 mg/dL (8.5-10.1); COR NA(FOR HYPERGLY) 144 mmol/L (136-145); CREATININE 1.12 mg/dL (0.55-1.02); SODIUM 143 mmol/L (136-145); TOTAL PROTEIN 5.8 g/dL (6.4-8.2); eGFR NON BLACK RACES 50 (>60)
[2018-04-24] MEDS: DUONEB 0.5 MG/3 MG NEB SCH ×4 (08:44→20:32)
[2018-04-24] MEDS: LEVAQUIN PREMIX IV 750 MG 750 MG/150 ML BAG IV SCH (08:51)
[2018-04-24] MEDS: CORDARONE TAB 200 MG PO SCH (08:52)
[2018-04-24] MEDS: AMARYL TAB 4 MG PO SCH (08:53)
[2018-04-24] MEDS: COREG TAB 3.125 MG PO SCH ×2 (08:53→20:28)
[2018-04-24] MEDS: JANUVIA PO SCH (08:53)
[2018-04-24] MEDS: ELIQUIS PO SCH ×2 (08:53→20:28)
[2018-04-24] MEDS: NS 1000 ML 1,000 ML IV SCH (08:59)
[2018-04-24] MEDS: MUCINEX DM PO SCH ×2 (11:25→20:29)
[2018-04-24] MEDS ORDERED: LEVSIN/MAALOX/LIDOC VISC PO PRN (14:14)
[2018-04-24] MEDS ORDERED: LEVSIN/MAALOX/LIDOC VISC ONE (14:20)
--- NOTE | 2018-04-24 20:15 | PCM.PROG ---
Progress Note - Progress Note for Day of Date of Exam: 04/24/18 - Subjective Subjective: WAS ADMITTED FOR ALTERED MENTAL STATUS AND GENERALIZED WEAKNESS. SHE WAS RECENTLY DISCHARGE FROM THE HOSPITAL FOR BRONCHOPNEUMONIA. BRAIN CT SUGGEST THAT PATIENT MAY HAVE HAD A TIA. SHE CONTINUES WITH SHORTNESS OF BREATH AND A NON-PRODUCTIVE COUGH AT TIMES. FAMILY REPORTS THAT SHE CONTINUES WITH CONFUSION AND DISORIENTATION AT TIMES. ON EXAMINATION, HEART IS REGULAR IN RATE AND RHYTHM. BILATERAL LUNGS ARE NOTED WITH DIMINISHED LUNG SOUNDS THROUGHOUT. ABDOMEN IS ROUND, SOFT, AND NON-TENDER WITH NORMAL BOWEL SOUNDS NOTED IN ALL QUADRANTS. HER VITALS THIS MORNING ARE 97.8-82-20-97%-189/94. LABS WERE OBTAINED. ABNORMAL LAB VALUES INCLUDE THE FOLLOWING: HCT 11.8, CHLORIDE 108, CREATININE 1.12, GLUCOSE 143, CALCIUM 8.4, TOTAL PROTEIN 5.8, ALBUMIN 2.7. TODAY, WE WILL CONTINUE WITH IV HYDRATION, BLOOD PRESSURE AND BLOOD SUGAR CONTROL, IV ANTIBIOTICS, AND RESPIRATORY TREATMENTS TODAY. WE WILL ADD MUCINEX DM 2 TABS PO BID. OTHERWISE, WE WILL FOLLOW UP WITH AM LABS AND CONTINUE TO MONITOR. - Past Medical Family Social History Past Med/Fam/Surg Hx: No changes since H&P Allergies: Allergies No Known Drug Allergies Allergy (Verified 04/15/18 14:29) - Review of Systems ROS: No change since H&P - Vital Signs and I&O's Vital Signs: Temperature 98.0 F Pulse Rate [Right] 96 Pulse Rate 92 Respiratory Rate 20 Blood Pressure [Right Arm] 154/88 Blood Pressure [Left Arm] 132/63 Blood Pressure [Right Arm] 135/62 Blood Pressure 105/54 O2 Sat by Pulse Oximetry 96 Intake and Output: Intake & Output 04/22/18 04/23/18 04/24/18 04/25/18 11:59 11:59 11:59 11:59 Intake Total 0 / 0 2230 / 2230 2140 / 2140 1000 / 1000 Balance 0 / 0 2230 / 2230 2140 / 2140 1000 / 1000 - Physical Exam Oriented: Person Eyes: Normal Ear: Normal Nose: Normal Throat: Normal Respiratory: Generalized, Diminished Cardiovascular: Normal : Normal Auscultation: Bowel Sounds: Normal Tenderness: Normal Skin: Normal Musculoskeletal: Normal Psychiatric: Normal Mood Description: Calm Affect: Normal Speech Pattern: Clear, Appropriate - Laboratory and Diagnostics Result Diagrams: 04/24/18 04:47 04/24/18 04:47 Labs: Laboratory WBC 8.8 X10^3/uL (3.6-10.0) 04/24/18 04:47 RBC 3.88 X10^6/uL (3.5-5.4) 04/24/18 04:47 Hgb 11.8 g/dL (12.0-16.0) L 04/24/18 04:47 Hct 36.2 % (36.0-47.0) 04/24/18 04:47 MCV 93.2 fL (80.0-100.0) 04/24/18 04:47 MCH 30.5 pg (27.0-34.0) 04/24/18 04:47 MCHC 32.7 g/dL (33.0-35.0) L 04/24/18 04:47 RDW 14.7 % (11.6-16.5) 04/24/18 04:47 Plt Count 177 X10^3/uL (150.0-450.0) 04/24/18 04:47 MPV 7.8 fL (7.4-11.0) 04/24/18 04:47 Neut % (Auto) 72.3 % (42.0-75.0) 04/24/18 04:47 Lymph % (Auto) 18.3 % (21.0-51.0) L 04/24/18 04:47 [place] % (Auto) 7.9 % (0.0-13.0) 04/24/18 04:47 Eos % (Auto) 1.1 % (0.9-2.9) 04/24/18 04:47 Baso % (Auto) 0.4 % (0.2-1.0) 04/24/18 04:47 Neut # (Auto) 6.3 x10^3/uL (2.2-4.8) H 04/24/18 04:47 Lymph # (Auto) 1.6 X10^3/uL (1.3-2.9) 04/24/18 04:47 [place] # (Auto) 0.7 x10^3/uL (0.3-0.8) 04/24/18 04:47 Eos # (Auto) 0.1 x10^3/uL (0.0-0.2) 04/24/18 04:47 Baso # (Auto) 0.0 X10^3/uL (0.0-0.1) 04/24/18 04:47 Absolute Nucleated RBC 0.1 /100WBC 04/24/18 04:47 Sample Site Rbra 04/22/18 01:40 ABG pH 7.440 (7.35-7.45) 04/22/18 01:40 ABG pCO2 45.0 mmHg (35.0-45.0) 04/22/18 01:40 ABG pO2 79.0 mmHg (80.0-100.0) L 04/22/18 01:40 ABG HCO3 30.6 mmol/L (22-26) H* 04/22/18 01:40 ABG O2 Saturation 96.0 % (90-100) 04/22/18 01:40 ABG Base Excess 5.6 mmol/L (-2.0-2.0) H 04/22/18 01:40 Pete Test Na 04/22/18 01:40 A-a Gradient 14.0 mmHg 04/22/18 01:40 FiO2 21.0 04/22/18 01:40 Blood Gas Comments Chinmay abg well-mtf 04/22/18 01:40 Sodium 143 mmol/L (136-145) 04/24/18 04:47 Corrected Sodium 144 mmol/L (136-145) 04/24/18 04:47 Potassium 4.0 mmol/L (3.5-5.1) 04/24/18 04:47 Chloride 108 mmol/L (98-107) H 04/24/18 04:47 Carbon Dioxide 31.2 mmol/L (21-32) 04/24/18 04:47 BUN 15 mg/dL (7-18) 04/24/18 04:47 Creatinine 1.12 mg/dL (0.55-1.02) H 04/24/18 04:47 Est GFR (MDRD) Af Amer > 60 (>60) 04/24/18 04:47 Est GFR (MDRD) Non-Af 50 (>60) L 04/24/18 04:47 Glucose 143 mg/dL (65-99) H 04/24/18 04:47 POC Glucose (mg/dL) 168 mg/dL (65-99) H 04/24/18 16:44 Calcium 8.4 mg/dL (8.5-10.1) L 04/24/18 04:47 Corrected Calcium 9.4 mg/dL (8.5-10.1) 04/24/18 04:47 Total Bilirubin 0.20 mg/dL (0.2-1.0) 04/24/18 04:47 AST 15 Units/L (15-37) 04/24/18 04:47 ALT 20 Units/L (12-78) 04/24/18 04:47 Alkaline Phosphatase 62 Units/L (46-116) 04/24/18 04:47 Creatine Kinase 37 Units/L (26-192) 04/22/18 13:57 CK-MB (CK-2) < 1.0 ng/mL (0-4.0) 04/22/18 13:57 CK/CKMB % Calc 2.7 % (<4) 04/22/18 13:57 Troponin I < 0.02 ng/mL (0-1.5) 04/22/18 13:57 Total Protein 5.8 g/dL (6.4-8.2) L 04/24/18 04:47 Albumin 2.7 g/dL (3.4-5.0) L 04/24/18 04:47 Globulin 3.1 g/dL (2.5-4.5) 04/24/18 04:47 Albumin/Globulin Ratio 0.9 Ratio (1.1-2.1) L 04/24/18 04:47 Triglycerides 86 mg/dL (0-150) 04/23/18 04:23 Cholesterol 155 mg/dL (0-200) 04/23/18 04:23 LDL Cholesterol, Calc 95 mg/dL (0-100) 04/23/18 04:23 HDL Cholesterol 43 mg/dL (40-60) 04/23/18 04:23 Cholesterol/HDL Ratio 3.6 (0.0-5.0) 04/23/18 04:23 Specimen Type Clean catch urine 04/22/18 03:26 Urine Color Dark yellow (YELLOW) 04/22/18 03:26 Urine Appearance Slightly hazy (CLEAR) 04/22/18 03:26 Urine pH 5.0 (5.0 - 8.0) 04/22/18 03:26 Ur Specific [place] 1.030 (1.000-1.030) 04/22/18 03:26 Urine Protein 1+ (NEGATIVE) 04/22/18 03:26 Urine Glucose (UA) Negative (NEGATIVE) 04/22/18 03:26 Urine Ketones Negative (NEGATIVE) 04/22/18 03:26 Urine Occult Blood Negative (NEGATIVE) 04/22/18 03:26 Urine Nitrite Negative (NEGATIVE) 04/22/18 03:26 Urine Bilirubin Negative (NEGATIVE) 04/22/18 03:26 Urine Urobilinogen 1+ (NORMAL) 04/22/18 03:26 Ur Leukocyte Esterase 1+ (NEGATIVE) 04/22/18 03:26 Urine RBC 0-2 /HPF (NONE SEEN) 04/22/18 03:26 Urine WBC 3-5 /HPF (NONE SEEN) 04/22/18 03:26 Ur Squamous Epith Cells Rare /HPF (NEGATIVE) 04/22/18 03:26 Calcium Oxalate Crystal Moderate /HPF (NEGATIVE) 04/22/18 03:26 Urine Bacteria Negative /HPF (NEGATIVE) 04/22/18 03:26 Hyaline Casts Rare /LPF (NEGATIVE) 04/22/18 03:26 Urine Mucus Few /HPF (NEGATIVE) 04/22/18 03:26 Ur Culture Indicated? No/not indicated 04/22/18 03:26 - Plan (1) TIA (transient ischemic attack) Status: Acute Plan: ELIQUIS 5MG PO BID, CONTINUE TO MONITOR (2) Bronchitis Status: Acute Plan: IV LEVAQUIN, RESPIRATORY TX, SUPPLEMENTAL OXYGEN, CONTINUE TO MONITOR (3) Diabetes mellitus, type 2 Status: Chronic Qualifiers: Diabetes mellitus dag coater insulin use: with detention use Diabetes mellitus complication status: without complication Qualified Code(s): E11.9 - Type 2 diabetes mellitus without complications; Z79.4 - correction (current) use of insulin Plan: MONITOR OTBS, CONTINUE HOME MEDS (4) Hypertension Status: Acute Qualifiers: Hypertension type: essential hypertension Plan: CONTINUE HOME MEDS
[2018-04-24] MEDS: SNACK - Diabetic Appropriate PO SCH (20:28)
[2018-04-24] MEDS: TUSSIONEX PENNKINETIC SUSP PO PRN (20:32)
[2018-04-25] MEDS: TESSALON PERLES PO SCH (05:04)
[2018-04-25 05:29] LABS: BASOPHILS % (AUTO) 0.4 % (0.2-1.0); EOSINOPHILS # (AUTO) 0.1 x10^3/uL (0.0-0.2); EOSINOPHILS % (AUTO) 0.9 % (0.9-2.9); HEMATOCRIT 35.8 % (36.0-47.0); HEMOGLOBIN 12.1 g/dL (12.0-16.0); LYMPHOCYTES # (AUTO) 1.7 X10^3/uL (1.3-2.9); LYMPHOCYTES % (AUTO) 17.2 % (21.0-51.0); MEAN CORPUSCULAR HEMOGLOBIN 30.9 pg (27.0-34.0); MEAN CORPUSCULAR HGB CONC 33.6 g/dL (33.0-35.0); MEAN CORPUSCULAR VOLUME 91.8 fL (80.0-100.0); MEAN PLATELET VOLUME 7.6 fL (7.4-11.0); MONOCYTES # (AUTO) 0.7 x10^3/uL (0.3-0.8); NEUTROPHILS # (AUTO) 7.5 x10^3/uL (2.2-4.8); NEUTROPHILS % (AUTO) 74.5 % (42.0-75.0); PLATELET COUNT 192 X10^3/uL (150.0-450.0); RED CELL DISTRIBUTION WIDTH 14.7 % (11.6-16.5); WHITE BLOOD COUNT 10.1 X10^3/uL (3.6-10.0)
[2018-04-25 05:41] LABS: ALANINE AMINOTRANSFERASE 20 Units/L (12-78); ALBUMIN 2.7 g/dL (3.4-5.0); ALKALINE PHOSPHATASE 63 Units/L (46-116); ASPARTATE AMINO TRANSFERASE 16 Units/L (15-37); BLOOD UREA NITROGEN 12 mg/dL (7-18); CALCIUM 8.1 mg/dL (8.5-10.1); CHLORIDE 106 mmol/L (98-107); COR CA(FOR HYPOALB) 9.1 mg/dL (8.5-10.1); COR NA(FOR HYPERGLY) 140 mmol/L (136-145); CREATININE 0.97 mg/dL (0.55-1.02); SODIUM 140 mmol/L (136-145); TOTAL PROTEIN 5.9 g/dL (6.4-8.2); eGFR NON BLACK RACES 59 (>60)
--- NOTE | 2018-04-25 06:34 | RAD ---
HISTORY: 77-year-old female with shortness of breath. Study: Frontal view of the chest. Comparison: Chest radiograph 04/22/2018 Findings: The trachea is midline. The cardiac silhouette is stably enlarged with low lung volumes and continued prominence perihilar lung markings and interstitium. The lungs are clear without focal consolidation, effusion or pneumothorax. Soft tissues are unremarkable. Osseous structures are unremarkable. IMPRESSION: 1. Stable cardiomegaly with findings suggesting COPD. Reported By:
[2018-04-25] MEDS ORDERED: LEVAQUIN PREMIX IV 500 MG 500 MG/100 ML BAG IV SCH (09:00)
[2018-04-25] MEDS: DUONEB 0.5 MG/3 MG NEB SCH ×2 (09:03→12:14)
[2018-04-25] MEDS: MUCINEX DM PO SCH (09:10)
[2018-04-25] MEDS: ELIQUIS PO SCH (09:10)
[2018-04-25] MEDS: CORDARONE TAB 200 MG PO SCH (09:11)
[2018-04-25] MEDS: COREG TAB 3.125 MG PO SCH (09:12)
[2018-04-25] MEDS: JANUVIA PO SCH (09:12)
[2018-04-25] MEDS: AMARYL TAB 4 MG PO SCH (09:13)
[2018-04-25 12:17] VITALS: BP 164/82
== END 2018-04-25 13:10 | disposition home health service (06) | DRG 69 ==
LOC: ER 23:29 → MED/SURG 23:29
PROVIDERS: ADMIT Internal Medicine; ATTEND Internal Medicine
DX: R26.89 Other abnormalities of gait and mobility; I10 Essential (primary) hypertension; R94.4 Abnormal results of kidney function studies; Z79.01 Long term (current) use of anticoagulants; I25.10 Atherosclerotic heart disease of native coronary artery without angina pectoris; K21.9 Gastro-esophageal reflux disease without esophagitis; R41.82 Altered mental status, unspecified; R06.02 Shortness of breath; F41.8 Other specified anxiety disorders; R53.1 Weakness; E11.65 Type 2 diabetes mellitus with hyperglycemia; G45.9 Transient cerebral ischemic attack, unspecified; J20.8 Acute bronchitis due to other specified organisms
CPT/HCPCS: 36415; 36600; 70450; 70551; 71010; 71045; 80053; 80061; 81001; 82550; 82553; 82803; 84484; 85025; 93005; 94640; 94760; 94762; 96365; 97110; 97162; 99282; 99284; A4216; A4222; G0378; J1956; J7030; J7620

== ENCOUNTER 2018-06-15 22:40 | Observation (INO) ==
--- NOTE | 2018-06-15 23:16 | DR.EXTPAIN ---
HPI Time seen Time Seen by Provider: 06/15/18 23:08 PCP Primary Care Physician: DR. KALEN HULL Complaint/Symptoms Chief Complaint Doctor Comments: A 77 y/o female presenting with palpitations noted upon awakening from sleep this afternoon. She also states she has Lt. shoulder but not chest pain. She has no dyspnea or nausea/vomiting. Chief Complaint:: PT STATED IT FEELS LIKE MY HEART IS RUNAWAY AND LEFT SHOULDER PAIN. Self Treatment fo Chief Complaint: STARTED TODAY Source History Provided: Patient Mode of arrival Mode of Arrival: Wheelchair Timing Onset of Chief Complaint: 06/15/18 PMH PMH Past Medical History: Yes Past Medical History: Diabetes and Hypertension Past Medical History Comment: IRREGULAR HEART RYTHM Past Surgical History: Yes Surgical History: Cholecystectomy and Hysterectomy Past Surgical History Comment: CATARACT SURGERY Family History History of Family Medical Conditions: No Family Medical History: Diabetes Mellitus and Hypertension Social History Does patient currently use any type of tobacco product: No Have you used tobacco products in the last 12 months: No Type of Tobacco Use: None Does any household member use tobacco: No Alcohol Use: None Do you use any recreational Drugs:: No Lives With: Alone Lives Where: Home infectious screening In the last 2 months have you had wt loss of >10#?: NO Have you had fever, night sweats or hemotysis?: No Have you traveled outside the country in the last 6 months?: No ROS Review of Systems Constitutional: No Symptoms Reported Eyes: No Symptoms Reported ENTM: No Symptoms Reported Respiratoy: No Symptoms Reported Cardiovascular: Palpitations Gastrointestinal/Abdominal: No Symptoms Reported Genitourinary: No Symptoms Reported Neurological: No Symptoms Reported Musculoskeletal: Shoulder (pain, Lt.) Integumentary: No Symptoms Reported Hematologic/Lymphatic: No Symptoms Reported Endocrine: No Symptoms Reported Psychiatric: No Symptoms Reported PE Vital Signs Vitals: Temperature 97.8 F Pulse Rate [Apical] 91 Pulse Rate 101 Respiratory Rate 16 Blood Pressure [Right Arm] 137/93 Blood Pressure [Left Arm] 164/82 Blood Pressure [Right Arm] 135/62 Blood Pressure 161/106 O2 Sat by Pulse Oximetry 94 General Limitations: No Limitations General Appearance: Alert and In No Apparent Distress Head Head Exam: Normal Inspection, Atraumatic and Normocephalic Eyes Eye exam: Normal Appearance and EOMI ENT ENT Exam: Normal Exam, Normal Oropharynx and Mucous Membranes Moist Neck Neck Exam: Normal Inspection, Full ROM and Trachea Midline Chest Chest Inspection: Normal Inspection and Symmetric Chest Wall Rise Respiratory Respiratory Exam: Normal Lung Sounds Bilat Cardiovascular Cardiovascular Exam: Irregular Rhythm, +S1 and +S2 Abdominal Exam Abdominal Exam: Normal Inspection, Normal Bowel Sounds and Soft Extremities Extremities Exam: Normal Inspection and Edema (1+ legs) Back Back Exam: Normal Inspection Neurological Neurological Exam: Alert and Oriented X3 Psychiatric Psychiatric Exam: Normal Affect and Normal Mood Skin Skin Exam: Warm, Dry and Normal Color COURSE Reevaluation 1st: Improved Education/Counseling Education/Counseling: Patient, Family, Education and Counseling Educated On: Treatment, Diagnosis, Prognosis and Needs for Follow Up ROR Labs Reviewed Result Diagrams: 06/15/18 23:10 06/15/18 23:10 Laboratory: WBC 11.7 X10^3/uL (3.6-10.0) H 06/15/18 23:10 RBC 4.40 X10^6/uL (3.5-5.4) 06/15/18 23:10 Hgb 14.0 g/dL (12.0-16.0) 06/15/18 23:10 Hct 40.8 % (36.0-47.0) 06/15/18 23:10 MCV 92.7 fL (80.0-100.0) 06/15/18 23:10 MCH 31.7 pg (27.0-34.0) 06/15/18 23:10 MCHC 34.2 g/dL (33.0-35.0) 06/15/18 23:10 RDW 14.9 % (11.6-16.5) 06/15/18 23:10 Plt Count 255 X10^3/uL (150.0-450.0) 06/15/18 23:10 MPV 7.8 fL (7.4-11.0) 06/15/18 23:10 Neut % (Auto) 72.7 % (42.0-75.0) 06/15/18 23:10 Lymph % (Auto) 18.7 % (21.0-51.0) L 06/15/18 23:10 [place] % (Auto) 7.0 % (0.0-13.0) 06/15/18 23:10 Eos % (Auto) 0.8 % (0.9-2.9) L 06/15/18 23:10 Baso % (Auto) 0.8 % (0.2-1.0) 06/15/18 23:10 Neut # (Auto) 8.5 x10^3/uL (2.2-4.8) H 06/15/18 23:10 Lymph # (Auto) 2.2 X10^3/uL (1.3-2.9) 06/15/18 23:10 [place] # (Auto) 0.8 x10^3/uL (0.3-0.8) 06/15/18 23:10 Eos # (Auto) 0.1 x10^3/uL (0.0-0.2) 06/15/18 23:10 Baso # (Auto) 0.1 X10^3/uL (0.0-0.1) 06/15/18 23:10 Absolute Nucleated RBC 0.0 /100WBC 06/15/18 23:10 INR Target Range - 06/15/18 23:10 INR 1.18 (0.8-1.3) 06/15/18 23:10 APTT 37.2 SECONDS (22.9-36.5) H 06/15/18 23:10 PTT Comment - 06/15/18 23:10 Sodium 144 mmol/L (136-145) 06/15/18 23:10 Corrected Sodium 144 mmol/L (136-145) 06/15/18 23:10 Potassium 3.7 mmol/L (3.5-5.1) 06/15/18 23:10 Chloride 105 mmol/L (98-107) 06/15/18 23:10 Carbon Dioxide 30.3 mmol/L (21-32) 06/15/18 23:10 BUN 16 mg/dL (7-18) 06/15/18 23:10 Creatinine 1.12 mg/dL (0.55-1.02) H 06/15/18 23:10 Est GFR (MDRD) Af Amer > 60 (>60) 06/15/18 23:10 Est GFR (MDRD) Non-Af 50 (>60) L 06/15/18 23:10 Glucose 113 mg/dL (65-99) H 06/15/18 23:10 Calcium 8.7 mg/dL (8.5-10.1) 06/15/18 23:10 Corrected Calcium TNP 06/15/18 23:10 Magnesium 1.8 mg/dL (1.7-2.9) 06/15/18 23:10 Total Bilirubin 0.40 mg/dL (0.2-1.0) 06/15/18 23:10 AST 15 Units/L (15-37) 06/15/18 23:10 ALT 21 Units/L (12-78) 06/15/18 23:10 Alkaline Phosphatase 72 Units/L (46-116) 06/15/18 23:10 Creatine Kinase 54 Units/L (26-192) 06/15/18 23:10 CK-MB (CK-2) 1.1 ng/mL (0-4.0) 06/15/18 23:10 CK/CKMB % Calc 2.0 % (<4) 06/15/18 23:10 Troponin I 0.02 ng/mL (0-1.5) 06/15/18 23:10 Total Protein 7.1 g/dL (6.4-8.2) 06/15/18 23:10 Albumin 3.4 g/dL (3.4-5.0) 06/15/18 23:10 Globulin 3.7 g/dL (2.5-4.5) 06/15/18 23:10 Albumin/Globulin Ratio 0.9 Ratio (1.1-2.1) L 06/15/18 23:10 Diagnosis Discharge Problem: A-fib Qualifiers: Atrial fibrillation type: paroxysmal Qualified Code(s): I48.0 - Paroxysmal atrial fibrillation CAD (coronary artery disease) Qualifiers: Coronary Disease-Associated Artery/Lesion type: [place] artery [place] vs. transplanted heart: [place] heart Associated angina: without angina Qualified Code(s): I25.10 - Atherosclerotic heart disease of [place] coronary artery without angina pectoris Hypertension Qualifiers: Hypertension type: essential hypertension Qualified Code(s): I10 - Essential (primary) hypertension GERD (gastroesophageal reflux disease) Qualifiers: Esophagitis presence: without esophagitis Qualified Code(s): K21.9 - Gastro- esophageal reflux disease without esophagitis Diabetes mellitus, type 2 Qualifiers: Diabetes mellitus intermediate insulin use: without termite technician use Diabetes mellitus complication status: with neurologic complications Diabetes mellitus complication detail: with autonomic neuropathy Qualified Code(s): E11.43 - Type 2 diabetes mellitus with diabetic autonomic (poly)neuropathy
[2018-06-15 23:22] LABS: BASOPHILS # (AUTO) 0.1 X10^3/uL (0.0-0.1); BASOPHILS % (AUTO) 0.8 % (0.2-1.0); EOSINOPHILS # (AUTO) 0.1 x10^3/uL (0.0-0.2); EOSINOPHILS % (AUTO) 0.8 % (0.9-2.9); HEMATOCRIT 40.8 % (36.0-47.0); LYMPHOCYTES # (AUTO) 2.2 X10^3/uL (1.3-2.9); LYMPHOCYTES % (AUTO) 18.7 % (21.0-51.0); MEAN CORPUSCULAR HEMOGLOBIN 31.7 pg (27.0-34.0); MEAN CORPUSCULAR HGB CONC 34.2 g/dL (33.0-35.0); MEAN CORPUSCULAR VOLUME 92.7 fL (80.0-100.0); MEAN PLATELET VOLUME 7.8 fL (7.4-11.0); MONOCYTES # (AUTO) 0.8 x10^3/uL (0.3-0.8); NEUTROPHILS # (AUTO) 8.5 x10^3/uL (2.2-4.8); NEUTROPHILS % (AUTO) 72.7 % (42.0-75.0); PLATELET COUNT 255 X10^3/uL (150.0-450.0); RED CELL DISTRIBUTION WIDTH 14.9 % (11.6-16.5); WHITE BLOOD COUNT 11.7 X10^3/uL (3.6-10.0)
[2018-06-15 23:34] LABS: BLOOD UREA NITROGEN 16 mg/dL (7-18); CALCIUM 8.7 mg/dL (8.5-10.1); CARBON DIOXIDE 30.3 mmol/L (21-32); CHLORIDE 105 mmol/L (98-107); COR NA(FOR HYPERGLY) 144 mmol/L (136-145); CREATININE 1.12 mg/dL (0.55-1.02); SODIUM 144 mmol/L (136-145); TROPONIN I 0.02 ng/mL (0-1.5); eGFR NON BLACK RACES 50 (>60)
[2018-06-15 23:38] LABS: ALANINE AMINOTRANSFERASE 21 Units/L (12-78); ALBUMIN 3.4 g/dL (3.4-5.0); ALKALINE PHOSPHATASE 72 Units/L (46-116); ASPARTATE AMINO TRANSFERASE 15 Units/L (15-37); CREATINE KINASE 54 Units/L (26-192); CREATINE KINASE MB 1.1 ng/mL (0-4.0); MAGNESIUM 1.8 mg/dL (1.7-2.9); TOTAL PROTEIN 7.1 g/dL (6.4-8.2)
--- NOTE | 2018-06-16 01:10 | RAD ---
AP Chest Indication:Shortness of breath Comparison:04/25/2018 Findings: The trachea is midline. The cardiac silhouette is mildly enlarged, unchanged. The lungs are clear without focal infiltrate or effusion. The bony thorax is unremarkable. IMPRESSION: 1. Cardiomegaly without acute airspace disease or CHF. Reported By:
[2018-06-16 01:42] LABS: CKMB % 2.1 % (<4); CREATINE KINASE 47 Units/L (26-192); CREATINE KINASE MB < 1.0 ng/mL (0-4.0); TROPONIN I < 0.02 ng/mL (0-1.5)
[2018-06-16] MEDS ORDERED: KLONOPIN TAB 1 MG PO PRN (01:58)
[2018-06-16 02:08] VITALS: BMI 37.3
[2018-06-16] MEDS ORDERED: DUONEB 0.5 MG/3 MG NEB SCH (06:00)
[2018-06-16] MEDS ORDERED: NEURONTIN TAB 600 MG PO SCH (06:00)
[2018-06-16] MEDS ORDERED: HumuLIN R SC SCH (06:30)
[2018-06-16 07:34] LABS: CKMB % 2.9 % (<4); CREATINE KINASE 34 Units/L (26-192); CREATINE KINASE MB < 1.0 ng/mL (0-4.0); TROPONIN I < 0.02 ng/mL (0-1.5)
[2018-06-16] MEDS ORDERED: HumuLIN R SC PRN (08:43)
[2018-06-16] MEDS ORDERED: ZESTRIL TAB 20 MG ONE (08:50)
[2018-06-16] MEDS ORDERED: AMARYL TAB 4 MG PO SCH (09:00)
[2018-06-16] MEDS ORDERED: ZESTRIL TAB 20 MG PO SCH (09:00)
[2018-06-16] MEDS ORDERED: COREG TAB 6.25 MG PO SCH (09:00)
[2018-06-16] MEDS ORDERED: JANUVIA PO SCH (09:00)
[2018-06-16] MEDS ORDERED: ELIQUIS PO SCH (09:00)
[2018-06-16] MEDS ORDERED: CORDARONE TAB 200 MG PO SCH (09:00)
[2018-06-16 13:04] LABS: CKMB % 3.3 % (<4); CREATINE KINASE 30 Units/L (26-192); CREATINE KINASE MB < 1.0 ng/mL (0-4.0); TROPONIN I < 0.02 ng/mL (0-1.5)
[2018-06-16 13:53] VITALS: BP 169/60
[2018-06-16] MEDS ORDERED: SNACK - Diabetic Appropriate PO SCH (20:00)
== END 2018-06-16 13:30 | disposition home or self-care (01) ==
LOC: ER 22:41 → MED/SURG 22:41
PROVIDERS: ADMIT Internal Medicine; ATTEND Internal Medicine
DX: I11.9 Hypertensive heart disease without heart failure; K21.9 Gastro-esophageal reflux disease without esophagitis; I25.10 Atherosclerotic heart disease of native coronary artery without angina pectoris; R79.1 Abnormal coagulation profile; E11.65 Type 2 diabetes mellitus with hyperglycemia; I48.0 Paroxysmal atrial fibrillation; R94.31 Abnormal electrocardiogram [ECG] [EKG]; M25.512 Pain in left shoulder; E11.43 Type 2 diabetes mellitus with diabetic autonomic (poly)neuropathy; R06.02 Shortness of breath
CPT/HCPCS: 36415; 71010; 71045; 80053; 82550; 82553; 83735; 84443; 84484; 85025; 85610; 85730; 93005; 94640; 94760; 96365; 99284; A4222; G0378

== ENCOUNTER 2018-11-21 14:55 | Observation (INO) ==
[2018-11-21 15:08] VITALS: BMI 40.3
--- NOTE | 2018-11-21 16:15 | DR.GENAD ---
HPI Time Seen Time Seen by Provider: 11/21/18 16:15 PCP Primary Care Physician: DELLA HPI Comment HPI Comment: PATIENT IS 78YR OLD WHITE FEMALE IN ED WITH RAPID HEART RATE AND ELEVATED BP. PATIENT HAVE A FIB ON AMIODARON AND ELIQUIS. SHE IS TAKEN MEDI CATONS INSTRUCTED. DISCOMFORT IN CHEST FROM THE HEART POUNDING. PATIENT IS WEAK AND FEEL SLIGHTLY LIGHT HEADED. NO FEVER OR FLU SYMPTOMS. Complaint/Symptoms Chief Complaint Doctors Comments: PATIENT WITH A FIB IS HAVING RAPID HEART RATE AND WEAKNESS, NOT FEELING GOOD. Chief Complaint:: "I'M IN AFIB I THINK. THE DOCTOR TOLD ME TO COME HERE NOW BECAUSE I COULDN'T GO SEE HIM TODAY." Nurses notes reviewed Nurses Notes Review: Yes Source History Provided: Patient Mode of Arrival Mode of Arrival: Ambulatory Timing Onset of Chief Complaint: 11/19/18 Came on: Suddenly Duration Duration: Constant Duration: Days Location Location: CHEST Severity Severity: Moderate Modifying Factors Worsens:: EXERTION Improves:: REST. Associated Signs and Symptoms Associated Signs and Symptoms: DIZZINESS, WEAK. Other History Other History: HISTORY A FIB. PMH PMH Past Medical History: Yes Past Medical History: Diabetes and Hypertension Past Surgical History: Yes Surgical History: Cholecystectomy and Hysterectomy Family History History of Family Medical Conditions: Yes Family Medical History: Diabetes Mellitus and Hypertension Social History Does patient currently use any type of tobacco product: No Have you used tobacco products in the last 12 months: No Type of Tobacco Use: None Does any household member use tobacco: No Alcohol Use: None Do you use any recreational Drugs:: No Lives With: Family Lives Where: Home infectious screening In the last 2 months have you had wt loss of >10#?: NO Have you had fever, night sweats or hemotysis?: No Have you traveled outside the country in the last 6 months?: No Isolation: Standard ROS Review of Systems Constitutional: See HPI, Weakness and Fatigue; negative Fever Eyes: No Symptoms Reported and See HPI; negative Eye Pain and Discharge ENTM: No Symptoms Reported and See HPI; negative Ear Pain, Nose Discharge, Nose Congestion and Throat Pain Respiratoy: See HPI and Short of Breath; negative Moist Cough, Wheezing and Hemoptysis Cardiovascular: See HPI, Edema and Palpitations; negative Chest Pain Gastrointestinal/Abdominal: Nausea; negative Abdominal Pain, Constipation, Diarrhea and Vomiting Genitourinary: No Symptoms Reported and See HPI; negative Dysuria, Frequency and Hematuria Neurological: See HPI, Weakness and Dizziness; negative Headache Musculoskeletal: See HPI and Muscle Pain; negative Back Pain Integumentary: No Symptoms Reported and See HPI; negative Change in Color, Rash and Juandice Hematologic/Lymphatic: See HPI, Easy Bleeding and Easy Bruising; negative Swollen Glands Endocrine: No Symptoms Reported and See HPI; negative Increased Thirst, Increased Urine and Decreased Appetite Psychiatric: No Symptoms Reported and See HPI All Other Systems: Reviewed and Negative PE Vital Signs Vitals: Temperature 98.6 F Pulse Rate 65 Respiratory Rate 21 Blood Pressure [Right Arm] 137/93 Blood Pressure [Left Arm] 169/60 Blood Pressure [Right Arm] 135/62 Blood Pressure 161/69 O2 Sat by Pulse Oximetry 97 General Limitations: No Limitations General Appearance: Alert and In No Apparent Distress Head Head Exam: Normal Inspection and Atraumatic Eyes Eye exam: Normal Appearance and PERRL; negative Scleral Icterus and Conjunctival Injection ENT ENT Exam: Normal Exam, Normal Oropharynx, Normal External Ear Exam and TM's Normal Bilaterally External Ear Exam: Normal External Inspection; negative Mastoid Tenderness, Pain with Movement and External Tenderness TM/Canal Exam: Bilateral: Normal Nose Exam: Normal Nose Exam; negative Sinus Tenderness, Nasal Deviation and Septal Hematoma Mouth Exam: Normal Inspection; negative Lip Swelling and Tongue Swelling Throat Exam: Normal Inspection; negative Tonsillar Erythema, Tonsillomegaly and Tonsillar Exudate Neck Neck Exam: Normal Inspection and Trachea Midline; negative Tenderness and Lymphadenopathy Chest Chest Inspection: Normal Inspection, Symmetric Chest Wall Rise and Tenderness Respiratory Respiratory Exam: Normal Lung Sounds Bilat; negative Accessory Muscle Use, Chest Wall Tenderness and Respiratory Distress Respiratory Exam: Bilateral: Clear to Auscultation Cardiovascular Cardiovascular Exam: Tachycardia and Irregular Rhythm; negative Systolic Murmur and Diastolic Murmur Abdominal Exam Abdominal Exam: Normal Inspection, Normal Bowel Sounds and Soft; negative Tenderness Extremities Extremities Exam: Normal Capillary Refill and Edema; negative Tenderness and Calf Tenderness Back Back Exam: Normal Inspection; negative Tenderness, (R) CVA Tenderness, (L) CVA Tenderness, Paraspinal Tenderness and Vertebral Tenderness Neurologic Neurological Exam: Alert, Oriented X3 and CN II-XII Intact; negative Motor Sensory Deficit Psychiatric Psychiatric Exam: Normal Affect and Normal Mood Skin Skin Exam: Warm, Dry, Intact and Normal Color COURSE Treatment Treatment: SEE ORDERS. AMLODOPINE 5MG PO IN ED. Reevaluation 1st: Improved (BP IMPROVING.) Consultation Consultation Comments: DR. HULL WILL ADMIT PATIENT. ORDERS DONE. Education/Counseling Education/Counseling: Patient Educated On: Diagnosis ROR Labs Reviewed Laboratory Results Reviewed?: Yes Result Diagrams: 11/22/18 05:04 11/22/18 08:40 Laboratory: WBC 8.2 X10^3/uL (3.6-10.0) 11/22/18 05:04 RBC 4.27 X10^6/uL (3.5-5.4) 11/22/18 05:04 Hgb 12.8 g/dL (12.0-16.0) 11/22/18 05:04 Hct 38.4 % (36.0-47.0) 11/22/18 05:04 MCV 89.8 fL (80.0-100.0) 11/22/18 05:04 MCH 30.0 pg (27.0-34.0) 11/22/18 05:04 MCHC 33.4 g/dL (33.0-35.0) 11/22/18 05:04 RDW 15.1 % (11.6-16.5) 11/22/18 05:04 Plt Count 208 X10^3/uL (150.0-450.0) 11/22/18 05:04 MPV 7.9 fL (7.4-11.0) 11/22/18 05:04 Neut % (Auto) 71.1 % (42.0-75.0) 11/22/18 05:04 Lymph % (Auto) 18.9 % (21.0-51.0) L 11/22/18 05:04 [place] % (Auto) 7.8 % (0.0-13.0) 11/22/18 05:04 Eos % (Auto) 1.4 % (0.9-2.9) 11/22/18 05:04 Baso % (Auto) 0.8 % (0.2-1.0) 11/22/18 05:04 Neut # (Auto) 5.8 x10^3/uL (2.2-4.8) H 11/22/18 05:04 Lymph # (Auto) 1.5 X10^3/uL (1.3-2.9) 11/22/18 05:04 [place] # (Auto) 0.6 x10^3/uL (0.3-0.8) 11/22/18 05:04 Eos # (Auto) 0.1 x10^3/uL (0.0-0.2) 11/22/18 05:04 Baso # (Auto) 0.1 X10^3/uL (0.0-0.1) 11/22/18 05:04 Absolute Nucleated RBC 0.0 /100WBC 11/22/18 05:04 Sodium 145 mmol/L (136-145) 11/22/18 05:04 Corrected Sodium TNP 11/22/18 05:04 Potassium 4.0 mmol/L (3.5-5.1) 11/22/18 08:40 Chloride 107 mmol/L (98-107) 11/22/18 05:04 Carbon Dioxide 28.7 mmol/L (21-32) 11/22/18 05:04 BUN 10 mg/dL (7-18) 11/22/18 05:04 Creatinine 1.04 mg/dL (0.55-1.02) H 11/22/18 05:04 Est GFR (MDRD) Af Amer > 60 (>60) 11/22/18 05:04 Est GFR (MDRD) Non-Af 54 (>60) L 11/22/18 05:04 Glucose 104 mg/dL (65-99) H 11/22/18 05:04 POC Glucose (mg/dL) 97 mg/dL (65-99) 11/22/18 06:16 Calcium 8.0 mg/dL (8.5-10.1) L 11/22/18 05:04 Corrected Calcium 8.9 mg/dL (8.5-10.1) 11/22/18 05:04 Magnesium 1.9 mg/dL (1.7-2.9) 11/22/18 05:04 Total Bilirubin 0.40 mg/dL (0.2-1.0) 11/22/18 05:04 AST 14 Units/L (15-37) L 11/22/18 05:04 ALT 12 Units/L (12-78) 11/22/18 05:04 Alkaline Phosphatase 69 Units/L (46-116) 11/22/18 05:04 Creatine Kinase 32 Units/L (26-192) 11/22/18 05:04 CK-MB (CK-2) < 1.0 ng/mL (0-4.0) 11/22/18 05:04 CK/CKMB % Calc 3.1 % (<4) 11/22/18 05:04 Troponin I < 0.02 ng/mL (0-1.5) 11/22/18 05:04 Total Protein 6.1 g/dL (6.4-8.2) L 11/22/18 05:04 Albumin 2.9 g/dL (3.4-5.0) L 11/22/18 05:04 Globulin 3.2 g/dL (2.5-4.5) 11/22/18 05:04 Albumin/Globulin Ratio 0.9 Ratio (1.1-2.1) L 11/22/18 05:04 Triglycerides 88 mg/dL (0-150) 11/22/18 05:04 Cholesterol 146 mg/dL (0-200) 11/22/18 05:04 LDL Cholesterol, Calc 82 mg/dL (0-100) 11/22/18 05:04 HDL Cholesterol 46 mg/dL (40-60) 11/22/18 05:04 Cholesterol/HDL Ratio 3.2 (0.0-5.0) 11/22/18 05:04 Specimen Type Clean catch urine 11/21/18 18:15 Urine Color Yellow (YELLOW) 11/21/18 18:15 Urine Appearance Clear (CLEAR) 11/21/18 18:15 Urine pH 8.0 (5.0 - 8.0) 11/21/18 18:15 Ur Specific [place] 1.010 (1.000-1.030) 11/21/18 18:15 Urine Protein Negative (NEGATIVE) 11/21/18 18:15 Urine Glucose (UA) Negative (NEGATIVE) 11/21/18 18:15 Urine Ketones Negative (NEGATIVE) 11/21/18 18:15 Urine Occult Blood 1+ (NEGATIVE) 11/21/18 18:15 Urine Nitrite Negative (NEGATIVE) 11/21/18 18:15 Urine Bilirubin Negative (NEGATIVE) 11/21/18 18:15 Urine Urobilinogen Normal (NORMAL) 11/21/18 18:15 Ur Leukocyte Esterase Negative (NEGATIVE) 11/21/18 18:15 Urine RBC 0-2 /HPF (0-3) 11/21/18 18:15 Urine WBC None seen /HPF (0-5) 11/21/18 18:15 Ur Squamous Epith Cells Few /HPF (NEGATIVE) 11/21/18 18:15 Urine Bacteria Negative /HPF (NEGATIVE) 11/21/18 18:15 Ur Culture Indicated? No/not indicated 11/21/18 18:15 XRAY XRAY Interpreted by: Radiologist XRAY Findings: REPORT NOTED AND DISCUSSED WITH PATIENT. EKG Rate: 106 Rhythm: Afib Block: None Hypertrophy: None ST: Nonsp Opioid Opioid Risk Tool Age ([place] box if 16-45): No History of Preadolescent Sexual Abuse: No Total: 0 Total Score Risk Category: Low Risk Copyright: Rony REDDY predicting aberrant behaviors Diagnosis Discharge Problem: Hypertensive urgency Afib Qualifiers: Atrial fibrillation type: persistent Qualified Code(s): I48.1 - Persistent atrial fibrillation Instructions Forms: Excuse From Work
[2018-11-21 16:40] LABS: BASOPHILS # (AUTO) 0.1 X10^3/uL (0.0-0.1); BASOPHILS % (AUTO) 1.2 % (0.2-1.0); EOSINOPHILS # (AUTO) 0.1 x10^3/uL (0.0-0.2); EOSINOPHILS % (AUTO) 0.8 % (0.9-2.9); HEMATOCRIT 42.1 % (36.0-47.0); HEMOGLOBIN 14.2 g/dL (12.0-16.0); LYMPHOCYTES # (AUTO) 1.6 X10^3/uL (1.3-2.9); LYMPHOCYTES % (AUTO) 16.8 % (21.0-51.0); MEAN CORPUSCULAR HEMOGLOBIN 30.4 pg (27.0-34.0); MEAN CORPUSCULAR HGB CONC 33.6 g/dL (33.0-35.0); MEAN CORPUSCULAR VOLUME 90.3 fL (80.0-100.0); MEAN PLATELET VOLUME 7.8 fL (7.4-11.0); MONOCYTES # (AUTO) 0.6 x10^3/uL (0.3-0.8); MONOCYTES % (AUTO) 6.7 % (0.0-13.0); NEUTROPHILS # (AUTO) 7.1 x10^3/uL (2.2-4.8); NEUTROPHILS % (AUTO) 74.5 % (42.0-75.0); PLATELET COUNT 217 X10^3/uL (150.0-450.0); RED BLOOD COUNT 4.66 X10^6/uL (3.5-5.4); RED CELL DISTRIBUTION WIDTH 14.7 % (11.6-16.5); WHITE BLOOD COUNT 9.5 X10^3/uL (3.6-10.0)
[2018-11-21 16:57] LABS: BLOOD UREA NITROGEN 13 mg/dL (7-18); CALCIUM 8.5 mg/dL (8.5-10.1); CARBON DIOXIDE 29.6 mmol/L (21-32); CHLORIDE 103 mmol/L (98-107); COR NA(FOR HYPERGLY) 143 mmol/L (136-145); CREATININE 1.21 mg/dL (0.55-1.02); SODIUM 141 mmol/L (136-145); TROPONIN I < 0.02 ng/mL (0-1.5); eGFR NON BLACK RACES 46 (>60)
[2018-11-21 17:02] LABS: ALANINE AMINOTRANSFERASE 16 Units/L (12-78); ALBUMIN 3.5 g/dL (3.4-5.0); ALKALINE PHOSPHATASE 83 Units/L (46-116); ASPARTATE AMINO TRANSFERASE 17 Units/L (15-37); CKMB % 2.2 % (<4); CREATINE KINASE 46 Units/L (26-192); CREATINE KINASE MB < 1.0 ng/mL (0-4.0); TOTAL PROTEIN 7.2 g/dL (6.4-8.2)
--- NOTE | 2018-11-21 17:47 | RAD ---
HISTORY: Chest pain Study: Single-view of the chest Comparison: June 15, 2018 Findings: The patient is slightly rotated. The cardiac silhouette is enlarged. The lungs are clear without focal infiltrate or effusion. IMPRESSION: 1. Cardiomegaly. Reported By:
[2018-11-21] MEDS: NORVASC TAB 5 MG PO SCH ×2 (17:48→21:10)
[2018-11-21 19:22] LABS: BILIRUBIN,URINE NEGATIVE (NEGATIVE); BLOOD/HEMOGLOBIN,URINE 1+ (NEGATIVE); GLUCOSE, URINE NEGATIVE (NEGATIVE); KETONES,URINE NEGATIVE (NEGATIVE); LEUKOCYTE ESTERASE ,URINE NEGATIVE (NEGATIVE); NITRITES,URINE NEGATIVE (NEGATIVE); PROTEIN,URINE NEGATIVE (NEGATIVE); UROBILINOGEN,URINE NORMAL (NORMAL)
[2018-11-21 19:26] LABS: APPEARANCE,URINE CLEAR (CLEAR); COLOR,URINE YELLOW (YELLOW)
[2018-11-21 19:28] LABS: BACTERIA,URINE NEGATIVE /HPF (NEGATIVE); RBC,URINE 0-2 /HPF (0-3); SQUAMOUS EPITHELIAL CELL,UR FEW /HPF (NEGATIVE)
[2018-11-21] MEDS ORDERED: KLONOPIN TAB 1 MG PO PRN (19:48)
[2018-11-21] MEDS ORDERED: ZOFRAN INJ 4 MG VIAL IVP PRN (19:48)
[2018-11-21] MEDS: SNACK - Diabetic Appropriate PO SCH (20:39)
[2018-11-21] MEDS: NS 1000 ML 1,000 ML IV SCH (20:41)
[2018-11-21] MEDS ORDERED: ZESTRIL TAB 20 MG ONE (20:56)
[2018-11-21] MEDS: ZESTRIL TAB 20 MG PO SCH (21:10)
[2018-11-21] MEDS: NEURONTIN TAB 600 MG PO SCH (21:10)
[2018-11-21] MEDS: ELIQUIS PO SCH (21:10)
[2018-11-21 23:18] LABS: CKMB % 2.6 % (<4); CREATINE KINASE 39 Units/L (26-192); CREATINE KINASE MB < 1.0 ng/mL (0-4.0); TROPONIN I < 0.02 ng/mL (0-1.5)
[2018-11-22 05:16] LABS: BASOPHILS # (AUTO) 0.1 X10^3/uL (0.0-0.1); BASOPHILS % (AUTO) 0.8 % (0.2-1.0); EOSINOPHILS # (AUTO) 0.1 x10^3/uL (0.0-0.2); EOSINOPHILS % (AUTO) 1.4 % (0.9-2.9); HEMATOCRIT 38.4 % (36.0-47.0); HEMOGLOBIN 12.8 g/dL (12.0-16.0); LYMPHOCYTES # (AUTO) 1.5 X10^3/uL (1.3-2.9); LYMPHOCYTES % (AUTO) 18.9 % (21.0-51.0); MEAN CORPUSCULAR HGB CONC 33.4 g/dL (33.0-35.0); MEAN CORPUSCULAR VOLUME 89.8 fL (80.0-100.0); MEAN PLATELET VOLUME 7.9 fL (7.4-11.0); MONOCYTES # (AUTO) 0.6 x10^3/uL (0.3-0.8); MONOCYTES % (AUTO) 7.8 % (0.0-13.0); NEUTROPHILS # (AUTO) 5.8 x10^3/uL (2.2-4.8); NEUTROPHILS % (AUTO) 71.1 % (42.0-75.0); PLATELET COUNT 208 X10^3/uL (150.0-450.0); RED BLOOD COUNT 4.27 X10^6/uL (3.5-5.4); RED CELL DISTRIBUTION WIDTH 15.1 % (11.6-16.5); WHITE BLOOD COUNT 8.2 X10^3/uL (3.6-10.0)
[2018-11-22 05:34] LABS: ALANINE AMINOTRANSFERASE 12 Units/L (12-78); ALBUMIN 2.9 g/dL (3.4-5.0); ALKALINE PHOSPHATASE 69 Units/L (46-116); ASPARTATE AMINO TRANSFERASE 14 Units/L (15-37); BLOOD UREA NITROGEN 10 mg/dL (7-18); CARBON DIOXIDE 28.7 mmol/L (21-32); CHLORIDE 107 mmol/L (98-107); CHOL/HDL RATIO 3.2 (0.0-5.0); CHOLESTEROL 146 mg/dL (0-200); COR CA(FOR HYPOALB) 8.9 mg/dL (8.5-10.1); CREATININE 1.04 mg/dL (0.55-1.02); HDL CHOLESTEROL 46 mg/dL (40-60); SODIUM 145 mmol/L (136-145); TOTAL PROTEIN 6.1 g/dL (6.4-8.2); TRIGLYCERIDES 88 mg/dL (0-150); eGFR NON BLACK RACES 54 (>60)
[2018-11-22] MEDS ORDERED: HumuLIN R SUBCUT PRN (05:37)
[2018-11-22 05:39] LABS: CKMB % 3.1 % (<4); CREATINE KINASE 32 Units/L (26-192); CREATINE KINASE MB < 1.0 ng/mL (0-4.0); TROPONIN I < 0.02 ng/mL (0-1.5)
[2018-11-22] MEDS ORDERED: POTASSIUM CHL 40 MEQ/NS 0.45% 500 ML IV PRN (05:50)
[2018-11-22] MEDS ORDERED: POTASSIUM CHLORIDE LIQ 20 MEQ UDC PO PRN (05:50)
[2018-11-22] MEDS ORDERED: K-RIDER 10 MEQ/NS 100 ML 10 MEQ/100 ML BAG IV PRN (05:50)
[2018-11-22] MEDS ORDERED: POTASSIUM CHL 60 MEQ/NS 0.45% 500 ML IV PRN (05:50)
[2018-11-22] MEDS ORDERED: KLOR-CON PO PRN (05:50)
[2018-11-22] MEDS ORDERED: K-DUR TAB 20 MEQ PO PRN (05:50)
[2018-11-22] MEDS ORDERED: MICRO K EXTEN CAP 10 MEQ PO PRN (05:50)
[2018-11-22] MEDS ORDERED: ZESTRIL TAB 20 MG ONE ×2 (08:13→20:20)
[2018-11-22] MEDS: CORDARONE TAB 200 MG PO SCH (08:19)
[2018-11-22] MEDS: AMARYL TAB 4 MG PO SCH (08:19)
[2018-11-22] MEDS: JANUVIA PO SCH (08:19)
[2018-11-22] MEDS: ELIQUIS PO SCH ×2 (08:19→20:57)
[2018-11-22] MEDS: ZESTRIL TAB 20 MG PO SCH ×2 (08:19→20:57)
[2018-11-22] MEDS: NS 1000 ML 1,000 ML IV SCH ×2 (08:20→23:55)
[2018-11-22] MEDS: TOPROL XL PO SCH (12:55)
[2018-11-22] MEDS: SNACK - Diabetic Appropriate PO SCH (20:00)
[2018-11-22] MEDS: NORVASC TAB 5 MG PO SCH (20:56)
[2018-11-22] MEDS: NEURONTIN TAB 600 MG PO SCH (20:57)
[2018-11-23 06:12] LABS: BASOPHILS % (AUTO) 0.3 % (0.2-1.0); EOSINOPHILS # (AUTO) 0.2 x10^3/uL (0.0-0.2); EOSINOPHILS % (AUTO) 1.6 % (0.9-2.9); HEMATOCRIT 42.4 % (36.0-47.0); HEMOGLOBIN 14.3 g/dL (12.0-16.0); LYMPHOCYTES # (AUTO) 1.9 X10^3/uL (1.3-2.9); LYMPHOCYTES % (AUTO) 18.9 % (21.0-51.0); MEAN CORPUSCULAR HEMOGLOBIN 30.4 pg (27.0-34.0); MEAN CORPUSCULAR HGB CONC 33.7 g/dL (33.0-35.0); MEAN CORPUSCULAR VOLUME 90.1 fL (80.0-100.0); MEAN PLATELET VOLUME 7.9 fL (7.4-11.0); MONOCYTES # (AUTO) 0.7 x10^3/uL (0.3-0.8); NEUTROPHILS # (AUTO) 7.1 x10^3/uL (2.2-4.8); NEUTROPHILS % (AUTO) 72.2 % (42.0-75.0); PLATELET COUNT 262 X10^3/uL (150.0-450.0); RED CELL DISTRIBUTION WIDTH 15.1 % (11.6-16.5); WHITE BLOOD COUNT 9.9 X10^3/uL (3.6-10.0)
[2018-11-23 06:40] LABS: ALANINE AMINOTRANSFERASE 14 Units/L (12-78); ALBUMIN 3.4 g/dL (3.4-5.0); ALKALINE PHOSPHATASE 80 Units/L (46-116); ASPARTATE AMINO TRANSFERASE 16 Units/L (15-37); BLOOD UREA NITROGEN 9 mg/dL (7-18); CALCIUM 8.5 mg/dL (8.5-10.1); CARBON DIOXIDE 31.1 mmol/L (21-32); CHLORIDE 104 mmol/L (98-107); CREATININE 1.03 mg/dL (0.55-1.02); SODIUM 144 mmol/L (136-145); TOTAL PROTEIN 7.1 g/dL (6.4-8.2); eGFR NON BLACK RACES 55 (>60)
[2018-11-23] MEDS ORDERED: ZESTRIL TAB 20 MG ONE (08:09)
[2018-11-23] MEDS: TOPROL XL PO SCH (09:28)
[2018-11-23] MEDS: AMARYL TAB 4 MG PO SCH (09:28)
[2018-11-23] MEDS: CORDARONE TAB 200 MG PO SCH (09:28)
[2018-11-23] MEDS: ELIQUIS PO SCH (09:29)
[2018-11-23] MEDS: JANUVIA PO SCH (09:29)
[2018-11-23] MEDS: ZESTRIL TAB 20 MG PO SCH (09:29)
[2018-11-23 10:46] VITALS: BP 141/68
== END 2018-11-23 11:50 | disposition home or self-care (01) ==
LOC: ICU 15:04 → ER 15:04 → ICU 19:16 → MED/SURG 11-22 18:42
PROVIDERS: ADMIT Internal Medicine; ATTEND Internal Medicine
DX: R26.89 Other abnormalities of gait and mobility; R94.31 Abnormal electrocardiogram [ECG] [EKG]; Z79.899 Other long term (current) drug therapy; I10 Essential (primary) hypertension; Z79.01 Long term (current) use of anticoagulants; I16.0 Hypertensive urgency; I48.1 Persistent atrial fibrillation; E11.65 Type 2 diabetes mellitus with hyperglycemia
CPT/HCPCS: 36415; 71010; 71045; 80053; 80061; 81001; 82550; 82553; 83735; 84132; 84484; 85025; 93005; 96365; 96367; 97116; 97162; 99284; A4222; G0378; J7030

== ENCOUNTER 2019-05-04 21:40 | Observation (INO) ==
[2019-05-04] MEDS ORDERED: ZOFRAN INJ 4 MG VIAL IVP PRN (21:52)
[2019-05-04 22:54] LABS: BASOPHILS # (AUTO) 0.1 X10^3/uL (0.0-0.1); BASOPHILS % (AUTO) 0.5 % (0.2-1.0); EOSINOPHILS # (AUTO) 0.1 x10^3/uL (0.0-0.2); EOSINOPHILS % (AUTO) 0.3 % (0.9-2.9); HEMATOCRIT 41.9 % (36.0-47.0); HEMOGLOBIN 13.8 g/dL (12.0-16.0); LYMPHOCYTES # (AUTO) 0.5 X10^3/uL (1.3-2.9); LYMPHOCYTES % (AUTO) 3.2 % (21.0-51.0); MEAN CORPUSCULAR HEMOGLOBIN 29.8 pg (27.0-34.0); MEAN CORPUSCULAR VOLUME 90.4 fL (80.0-100.0); MEAN PLATELET VOLUME 7.8 fL (7.4-11.0); MONOCYTES # (AUTO) 0.8 x10^3/uL (0.3-0.8); MONOCYTES % (AUTO) 4.7 % (0.0-13.0); NEUTROPHILS # (AUTO) 15.7 x10^3/uL (2.2-4.8); NEUTROPHILS % (AUTO) 91.3 % (42.0-75.0); PLATELET COUNT 254 X10^3/uL (150.0-450.0); RED BLOOD COUNT 4.64 X10^6/uL (3.5-5.4); RED CELL DISTRIBUTION WIDTH 14.7 % (11.6-16.5); WHITE BLOOD COUNT 17.2 X10^3/uL (3.6-10.0)
[2019-05-04 23:02] LABS: BAND NEUTROPHILS % 1 % (0-10)
[2019-05-04] MEDS: NS 1000 ML 1,000 ML IV SCH (23:02)
[2019-05-04 23:03] LABS: PLATELET MORPHOLOGY COMMENT NORMAL (NORMAL)
[2019-05-04 23:04] LABS: ALANINE AMINOTRANSFERASE 25 Units/L (12-78); ALBUMIN 3.5 g/dL (3.4-5.0); ALKALINE PHOSPHATASE 87 Units/L (46-116); ASPARTATE AMINO TRANSFERASE 26 Units/L (15-37); BLOOD UREA NITROGEN 19 mg/dL (7-18); CALCIUM 8.6 mg/dL (8.5-10.1); CARBON DIOXIDE 32.8 mmol/L (21-32); CHLORIDE 105 mmol/L (98-107); COR NA(FOR HYPERGLY) 145 mmol/L (136-145); CREATININE 1.19 mg/dL (0.55-1.02); SODIUM 143 mmol/L (136-145); TOTAL PROTEIN 7.6 g/dL (6.4-8.2); eGFR NON BLACK RACES 47 (>60)
[2019-05-05 00:28] LABS: APPEARANCE,URINE HAZY (CLEAR); COLOR,URINE YELLOW (YELLOW)
[2019-05-05 00:30] LABS: BACTERIA,URINE NEGATIVE /HPF (NEGATIVE); BILIRUBIN,URINE NEGATIVE (NEGATIVE); BLOOD/HEMOGLOBIN,URINE 2+ (NEGATIVE); GLUCOSE, URINE NEGATIVE (NEGATIVE); KETONES,URINE NEGATIVE (NEGATIVE); LEUKOCYTE ESTERASE ,URINE 1+ (NEGATIVE); NITRITES,URINE NEGATIVE (NEGATIVE); PROTEIN,URINE NEGATIVE (NEGATIVE); SQUAMOUS EPITHELIAL CELL,UR RARE /HPF (NEGATIVE); UROBILINOGEN,URINE NORMAL (NORMAL)
--- NOTE | 2019-05-05 02:33 | RAD ---
STUDY: SINGLE VIEW OF THE ABDOMENCOMPARISON: NoneHISTORY: SOBFINDINGS: Limited exam due to patient positioningBowel gas pattern is gross nonobstructive.There is no gross evidence of free air in the abdomen.There are no abnormal masses or calcification seen.The visualized bones demonstrate degenerative changes.Surgical clips in the right upper quadrant may be from prior cholecystectomy.IMPRESSION:1. THE BOWEL GAS PATTERN IS GROSSLY NONOBSTRUCTIVE.Electronically signed by: Omar Javier (May 05, 2019 02:32:33)
--- NOTE | 2019-05-05 02:33 | RAD ---
STUDY: FRONTAL VIEW CHESTCOMPARISON: June 15, 2018HISTORY: N/V/DFINDINGS:No focal consolidation is seen.The heart size is Magnified on this portable technique and without radiographic evidence of pulmonary edema.The mediastinum is unremarkable.There is no evidence of pleural effusion or gross pneumothorax.Trachea is midline.IMPRESSION:1. NO FOCAL CONSOLIDATION SEEN.Electronically signed by: Omar Javier (May 05, 2019 02:31:39)
[2019-05-05 04:43] LABS: MEAN CORPUSCULAR HEMOGLOBIN 29.9 pg (27.0-34.0); MEAN PLATELET VOLUME 8.1 fL (7.4-11.0)
[2019-05-05 04:51] LABS: ALANINE AMINOTRANSFERASE 19 Units/L (12-78); ALBUMIN 2.9 g/dL (3.4-5.0); ALKALINE PHOSPHATASE 75 Units/L (46-116); ASPARTATE AMINO TRANSFERASE 23 Units/L (15-37); BLOOD UREA NITROGEN 15 mg/dL (7-18); CARBON DIOXIDE 29.3 mmol/L (21-32); CHLORIDE 106 mmol/L (98-107); COR CA(FOR HYPOALB) 8.9 mg/dL (8.5-10.1); COR NA(FOR HYPERGLY) 143 mmol/L (136-145); CREATININE 0.98 mg/dL (0.55-1.02); SODIUM 142 mmol/L (136-145); TOTAL PROTEIN 6.6 g/dL (6.4-8.2); eGFR NON BLACK RACES 58 (>60)
[2019-05-05 04:58] LABS: BASOPHILS # (AUTO) 0.1 X10^3/uL (0.0-0.1); BASOPHILS % (AUTO) 0.6 % (0.2-1.0); EOSINOPHILS # (AUTO) 0.1 x10^3/uL (0.0-0.2); EOSINOPHILS % (AUTO) 0.6 % (0.9-2.9); HEMATOCRIT 39.4 % (36.0-47.0); LYMPHOCYTES # (AUTO) 0.9 X10^3/uL (1.3-2.9); LYMPHOCYTES % (AUTO) 7.5 % (21.0-51.0); MEAN CORPUSCULAR HGB CONC 33.1 g/dL (33.0-35.0); MEAN CORPUSCULAR VOLUME 90.5 fL (80.0-100.0); MONOCYTES # (AUTO) 0.6 x10^3/uL (0.3-0.8); MONOCYTES % (AUTO) 5.3 % (0.0-13.0); PLATELET COUNT 205 X10^3/uL (150.0-450.0); RED BLOOD COUNT 4.35 X10^6/uL (3.5-5.4); RED CELL DISTRIBUTION WIDTH 14.8 % (11.6-16.5); WHITE BLOOD COUNT 11.7 X10^3/uL (3.6-10.0)
[2019-05-05] MEDS ORDERED: MAGNESIUM SULFATE 1 GRAM/100 mL PREMIX 1 GM/100 ML BAG IV PRN (05:06)
[2019-05-05] MEDS ORDERED: MICRO K EXTEN CAP 10 MEQ PO PRN (05:06)
[2019-05-05] MEDS ORDERED: KLOR-CON PO PRN (05:06)
[2019-05-05] MEDS ORDERED: POTASSIUM CHL 40 MEQ/NS 0.45% 500 ML IV PRN (05:06)
[2019-05-05] MEDS ORDERED: POTASSIUM CHLORIDE LIQ 20 MEQ UDC PO PRN (05:06)
[2019-05-05] MEDS ORDERED: POTASSIUM CHL 60 MEQ/NS 0.45% 500 ML IV PRN (05:06)
[2019-05-05] MEDS ORDERED: K-RIDER 10 MEQ/NS 100 ML 10 MEQ/100 ML BAG IV PRN (05:06)
[2019-05-05 05:18] VITALS: BMI 39.9
[2019-05-05] MEDS: K-DUR TAB 20 MEQ PO PRN ×2 (05:36→08:32)
--- NOTE | 2019-05-05 10:58 | CT ---
HISTORY: [Altered mental status]Noncontrast head CT examination.Comparison: [None].Technique:Multiple axial images of the brain were obtained from the skull base to the vertex without administration of IV contrast.Findings: There is moderate sulcal and cisternal prominence as well as atherosclerotic change in the proximal intracranial carotid and vertebral arteries, which is not out of proportion to the patient's stated age. There is diffuse CT density alteration seen in the periventricular white matter of the high and mid-convexity, which is likely in the setting of small vessel disease and not out of proportion to the patient's stated age. There is no pathologic ventricular dilatation or CT imaging evidence for hydrocephalus or herniation syndrome. No midline shift is evident. No acute intraparenchymal hemorrhage or mass can be identified. No extra-axial fluid collections are seen. No alteration in the attenuation of the brain parenchyma can be identified to suggest acute or subacute ischemic change. However, if clinical symptoms are concerning for an acute CVA, then follow-up MRI with DWI sequencing is recommended. The extracranial structures are unremarkable. The sinuses and mastoids are relatively clear.IMPRESSION:1. [No acute intracranial process, mass, or bleed identified].2. [Age-appropriate intra-cranial changes of advancing age].Electronically signed by: CHRIS LU III (May 05, 2019 10:56:36)
[2019-05-05] MEDS: ELIQUIS PO SCH ×2 (11:51→21:58)
[2019-05-05] MEDS: NS 1000 ML 1,000 ML IV SCH (13:30)
[2019-05-05] MEDS ORDERED: VALIUM PO PRN (13:47)
[2019-05-05] MEDS ORDERED: ANTIVERT TAB 25 MG PO PRN (13:47)
[2019-05-05] MEDS: CORDARONE TAB 200 MG PO SCH (14:48)
[2019-05-05] MEDS: AMARYL TAB 4 MG PO SCH (14:48)
[2019-05-05] MEDS: JANUVIA PO SCH (14:48)
[2019-05-05] MEDS: TOPROL XL PO SCH (14:48)
[2019-05-05] MEDS ORDERED: ZESTRIL TAB 20 MG ONE (21:08)
[2019-05-05] MEDS: NORVASC TAB 5 MG PO SCH (21:59)
[2019-05-05] MEDS: NEURONTIN TAB 600 MG PO SCH (21:59)
[2019-05-05] MEDS: SNACK - Diabetic Appropriate PO SCH (22:00)
[2019-05-05] MEDS: KLONOPIN TAB 1 MG PO PRN (22:00)
[2019-05-05] MEDS: PROTONIX TAB 40 MG PO SCH (22:00)
[2019-05-05] MEDS: ZESTRIL TAB 20 MG PO SCH (22:00)
[2019-05-06] MEDS: NS 1000 ML 1,000 ML IV SCH (00:22)
[2019-05-06 06:15] LABS: BASOPHILS % (AUTO) 0.5 % (0.2-1.0); EOSINOPHILS # (AUTO) 0.1 x10^3/uL (0.0-0.2); EOSINOPHILS % (AUTO) 1.7 % (0.9-2.9); HEMATOCRIT 36.7 % (36.0-47.0); HEMOGLOBIN 12.3 g/dL (12.0-16.0); LYMPHOCYTES # (AUTO) 1.4 X10^3/uL (1.3-2.9); MEAN CORPUSCULAR HEMOGLOBIN 30.4 pg (27.0-34.0); MEAN CORPUSCULAR HGB CONC 33.5 g/dL (33.0-35.0); MEAN CORPUSCULAR VOLUME 90.8 fL (80.0-100.0); MEAN PLATELET VOLUME 7.8 fL (7.4-11.0); MONOCYTES # (AUTO) 0.6 x10^3/uL (0.3-0.8); MONOCYTES % (AUTO) 7.4 % (0.0-13.0); NEUTROPHILS # (AUTO) 6.3 x10^3/uL (2.2-4.8); NEUTROPHILS % (AUTO) 74.4 % (42.0-75.0); PLATELET COUNT 214 X10^3/uL (150.0-450.0); RED BLOOD COUNT 4.04 X10^6/uL (3.5-5.4); RED CELL DISTRIBUTION WIDTH 14.9 % (11.6-16.5); WHITE BLOOD COUNT 8.5 X10^3/uL (3.6-10.0)
[2019-05-06 06:36] LABS: ALANINE AMINOTRANSFERASE 19 Units/L (12-78); ALBUMIN 2.8 g/dL (3.4-5.0); ALKALINE PHOSPHATASE 66 Units/L (46-116); ASPARTATE AMINO TRANSFERASE 30 Units/L (15-37); BLOOD UREA NITROGEN 11 mg/dL (7-18); CALCIUM 8.1 mg/dL (8.5-10.1); CARBON DIOXIDE 29.1 mmol/L (21-32); CHLORIDE 108 mmol/L (98-107); COR CA(FOR HYPOALB) 9.1 mg/dL (8.5-10.1); CREATININE 0.91 mg/dL (0.55-1.02); SODIUM 142 mmol/L (136-145); TOTAL PROTEIN 6.2 g/dL (6.4-8.2); eGFR NON BLACK RACES > 60 (>60)
[2019-05-06] MEDS ORDERED: ZESTRIL TAB 20 MG ONE ×2 (08:00→20:27)
[2019-05-06] MEDS: AMARYL TAB 4 MG PO SCH (08:47)
[2019-05-06] MEDS: CORDARONE TAB 200 MG PO SCH (08:48)
[2019-05-06] MEDS: JANUVIA PO SCH (08:49)
[2019-05-06] MEDS: ELIQUIS PO SCH ×2 (08:49→20:44)
[2019-05-06] MEDS: TOPROL XL PO SCH (08:50)
[2019-05-06] MEDS: ZESTRIL TAB 20 MG PO SCH ×2 (08:50→20:45)
[2019-05-06] MEDS: ZOLOFT PO SCH (08:50)
[2019-05-06] MEDS: PROTONIX TAB 40 MG PO SCH ×2 (08:50→21:18)
[2019-05-06] MEDS: KLONOPIN TAB 1 MG PO PRN ×2 (20:44→23:39)
[2019-05-06] MEDS: NORVASC TAB 5 MG PO SCH (20:44)
[2019-05-06] MEDS: NEURONTIN TAB 600 MG PO SCH (20:45)
[2019-05-06] MEDS: SNACK - Diabetic Appropriate PO SCH (20:45)
[2019-05-07 06:26] LABS: BASOPHILS # (AUTO) 0.1 X10^3/uL (0.0-0.1); BASOPHILS % (AUTO) 0.8 % (0.2-1.0); EOSINOPHILS # (AUTO) 0.1 x10^3/uL (0.0-0.2); EOSINOPHILS % (AUTO) 0.6 % (0.9-2.9); HEMATOCRIT 38.7 % (36.0-47.0); HEMOGLOBIN 12.9 g/dL (12.0-16.0); LYMPHOCYTES # (AUTO) 1.7 X10^3/uL (1.3-2.9); LYMPHOCYTES % (AUTO) 13.2 % (21.0-51.0); MEAN CORPUSCULAR HEMOGLOBIN 30.1 pg (27.0-34.0); MEAN CORPUSCULAR HGB CONC 33.3 g/dL (33.0-35.0); MEAN CORPUSCULAR VOLUME 90.3 fL (80.0-100.0); MEAN PLATELET VOLUME 8.3 fL (7.4-11.0); MONOCYTES # (AUTO) 0.8 x10^3/uL (0.3-0.8); MONOCYTES % (AUTO) 6.4 % (0.0-13.0); NEUTROPHILS # (AUTO) 10.2 x10^3/uL (2.2-4.8); PLATELET COUNT 238 X10^3/uL (150.0-450.0); RED BLOOD COUNT 4.28 X10^6/uL (3.5-5.4); RED CELL DISTRIBUTION WIDTH 14.6 % (11.6-16.5); WHITE BLOOD COUNT 12.9 X10^3/uL (3.6-10.0)
[2019-05-07 06:33] LABS: ALANINE AMINOTRANSFERASE 20 Units/L (12-78); ALBUMIN 2.9 g/dL (3.4-5.0); ALKALINE PHOSPHATASE 75 Units/L (46-116); ASPARTATE AMINO TRANSFERASE 26 Units/L (15-37); BLOOD UREA NITROGEN 12 mg/dL (7-18); CALCIUM 8.5 mg/dL (8.5-10.1); CARBON DIOXIDE 30.1 mmol/L (21-32); CHLORIDE 101 mmol/L (98-107); COR CA(FOR HYPOALB) 9.4 mg/dL (8.5-10.1); COR NA(FOR HYPERGLY) 138 mmol/L (136-145); CREATININE 0.99 mg/dL (0.55-1.02); SODIUM 137 mmol/L (136-145); TOTAL PROTEIN 6.7 g/dL (6.4-8.2); eGFR NON BLACK RACES 58 (>60)
[2019-05-07] MEDS: NS 1000 ML 1,000 ML IV SCH (07:02)
[2019-05-07] MEDS ORDERED: ZESTRIL TAB 20 MG ONE (07:48)
[2019-05-07] MEDS: ELIQUIS PO SCH (08:30)
[2019-05-07] MEDS: TOPROL XL PO SCH (08:31)
[2019-05-07] MEDS: PROTONIX TAB 40 MG PO SCH (08:31)
[2019-05-07] MEDS: K-DUR TAB 20 MEQ PO PRN (08:31)
[2019-05-07] MEDS: ZESTRIL TAB 20 MG PO SCH (08:32)
[2019-05-07] MEDS: AMARYL TAB 4 MG PO SCH (08:32)
[2019-05-07] MEDS: ZOLOFT PO SCH (08:32)
[2019-05-07] MEDS: JANUVIA PO SCH (08:32)
[2019-05-07] MEDS: CORDARONE TAB 200 MG PO SCH (08:35)
[2019-05-07 12:07] VITALS: BP 143/75
--- NOTE | 2019-05-07 22:08 | DR.H&P ---
H&P - History & Physical for Day of: H&P Date: 05/04/19 - Chief Complaint Chief Complaint: NAUSEA, VOMITING, DIARRHEA, AMS - History of Present Illness History of Present Illness: IS A 78 YEAR OLD PATIENT OF OURS WHO PRESENTED TO THE HOSPITAL A DIRECT ADMISSION DUE TO COMPLAINTS OF SEVERE NAUSEA, VOMITING, AND DIARRHEA X 1 DAY. SHE DENIED ABDOMINAL PAIN. FAMILY ALSO REPORTS INTERMITTENT CONFUSION. ON ARRIVAL TO THE HOSPITAL, VITALS WERE 98.3-96-18-95%-166/73. LABS WERE OBTAINED. ABNORMAL LAB VALUES INCLUDED THE FOLLOWING: WBC 17.2, CARBON DIOIXDE 32.8, BUN 19, CREATININE 1.19, GLUCOSE 181. URINALYSIS REVEALED: RBC 3-5, WBC 0-2, LEUKOCYTES 1+, BACTERIA NEGATIVE, OCCULT BLOOD 2+. CHEST XRAY OBTAINED AND REVEALED: NO FOCAL CONSOLIDATION SEEN. KUB REVEALED: 1. THE BOWEL GAS PATTERN IS GROSSLY NONOBSTRUCTIVE. BRAIN CT OBTAINED AND REVEALED: 1. No acute intracranial process, mass, or bleed identified. 2. Age-appropriate intra-cranial changes of advancing age. SHE WAS STARTED ON NORMAL SALINE AT 80 ML/HR, THE POTASSIUM AND MAGNESIUM PROTOCOLS, ZOFRAN 4MG IV Q4H PRN, AND HOME MEDICATIONS WERE RESUMED. OTHERWISE, WE PLAN TO FOLLOW UP WITH AM LABS AND CONTINUE TO MONITOR. - Past Medical History Past Medical History: Hypertension, Diabetes Additional Medical History: Cataracts, Atrial Fibrillation, Endometriosis, Back Pain - Past Surgical History Surgical History: Cholecystectomy, Hysterectomy, Other Additional Surgical History: Cataract Surgery, Cardiac Ablation - Family History Family Medical History: Diabetes Mellitus, Hypertension - Social History Alcohol Use: None Drug Use: None - Medications Home Medications: No Known Drug Allergies Allergy (Verified 06/16/18 00:54) CONTINUE taking the following medications diazepam 10 mg PO BID PRN 05/05/19 [History] meclizine 50 mg PO Q6PM PRN 05/05/19 [History] metoprolol succinate 50 mg PO DAILY 05/05/19 [History] pantoprazole [Protonix] 40 mg PO BID 05/05/19 [History] sertraline [Zoloft] 50 mg PO QAM 05/05/19 [History] New Prescriptions ondansetron HCl [Zofran] 4 mg PO Q6H PRN #30 tab 05/07/19 [Rx] - Review of Systems Constitutional: Weakness Eyes: No Symptoms Reported ENT: No Symptoms Reported Respiratory: No Symptoms Reported Cardiovascular: No Symptoms Reported Gastrointestinal: See HPI, Nausea, Vomiting, Diarrhea Genitourinary: No Symptoms Reported Musculoskeletal: No Symptoms Reported Skin: No Symptoms Reported Neurological: Weakness, Confusion - Physical Exam Vital Signs: Temperature 98.2 F Pulse Rate [Right Radial] 66 Respiratory Rate 20 Blood Pressure [Right Arm] 184/85 Blood Pressure [Left Arm] 143/75 Blood Pressure [Right Arm] 135/62 Blood Pressure 134/70 O2 Sat by Pulse Oximetry 94 Oriented: Normal Eyes: Normal Ear: Normal Nose: Normal Throat: Normal Respiratory: Diminished Throughout Cardiovascular: Normal : Normal Auscultation: Bowel Sounds: Normal Palpation: Normal Tenderness: Normal Skin: Normal Musculoskeletal: Normal Psychiatric: Normal Mood Description: Calm Affect: Normal Speech Pattern: Clear - Assessment/Plan (1) Gastritis Qualifiers: Gastritis type: unspecified gastritis Chronicity: acute Gastritis bleeding: without bleeding Qualified Code(s): K29.00 - Acute gastritis without bleeding Status: Acute Plan: ADMIT, NORMAL SALINE AT 80 ML/HR, THE POTASSIUM AND MAGNESIUM PROTOCOLS, ZOFRAN 4MG IV Q4H PRN, AND HOME MEDICATIONS WERE RESUMED (2) Nausea and vomiting Qualifiers: Vomiting type: unspecified Vomiting Intractability: non-intractable Qualified Code(s): R11.2 - Nausea with vomiting, unspecified Status: Acute (3) Altered mental status Qualifiers: Altered mental status type: transient alteration of awareness Qualified Code(s): R40.4 - Transient alteration of awareness Status: Acute - Allergies Allergies/Adverse Reactions: Allergies Allergy/AdvReac Type Severity Reaction Status Date / Time No Known Drug Allergies Allergy Verified 06/16/18 00:54
--- NOTE | 2019-05-08 19:19 | PCM.PROG ---
Progress Note - Progress Note for Day of Date of Exam: 05/06/19 - Subjective Subjective: IS BEING TREATED FOR GASTRITIS AND ALTERED MENTAL STATUS. TODAY, SHE IS ALERT AND ORIENTED, LYING IN BED ON MORNING ROUNDS. SHE CONTINUES WITH COMPLAINTS OF NAUSEA AND ABDOMINAL PAIN TODAY. ON EXAMINATION, HEART IS REGULAR IN RATE AND RHYTHM. BILATERAL LUNGS ARE NOTED WITH DIMINISHED LUNG SOUNDS THROUGHOUT. ABDOMEN IS ROUND, SOFT, AND NOTED WITH DIFFUSE TENDERNESS. HYPERACTIVE BOWEL SOUNDS ARE NOTED IN ALL QUADRANTS. HER VITALS THIS MORNING ARE: 97.6-68-20-96%-182/76. LABS WERE OBTAINED. ABNORMAL LAB VALUES INCLUDE THE FOLLOWING: CHLORIDE 108, GLUCOSE 104, CALCIUM 8.1, TOTAL PROTEIN 6.2, ALBUMIN 2.8. SHE IS CURRENTLY RECEIVING NORMAL SALINE AT 80 ML/HR, THE POTASSIUM AND MAG NESIUM PROTOCOLS, ZOFRAN 4MG IV Q4H PRN, AND HOME MEDICATIONS WERE RESUMED. WE WILL CONTINUE WITH CURRENT PLAN OF CARE TODAY. OTHERWISE, WE WILL FOLLOW UP WITH AM LABS AND CONTINUE TO MONITOR. - Past Medical Family Social History Past Med/Fam/Surg Hx: No changes since H&P Allergies: Allergies No Known Drug Allergies Allergy (Verified 06/16/18 00:54) - Review of Systems ROS: No change since H&P - Vital Signs and I&O's Vital Signs: Temperature 98.2 F Pulse Rate [Right Radial] 66 Respiratory Rate 20 Blood Pressure [Right Arm] 184/85 Blood Pressure [Left Arm] 143/75 Blood Pressure [Right Arm] 135/62 Blood Pressure 134/70 O2 Sat by Pulse Oximetry 94 Intake and Output: Intake & Output 05/06/19 05/07/19 05/08/19 05/09/19 11:59 11:59 11:59 11:59 Intake Total 0 / 2080 1350 / 1350 Output Total 200 / 200 Balance 1880 / 1880 1350 / 1350 - Physical Exam Oriented: Normal Eyes: Normal Ear: Normal Nose: Normal Throat: Normal Respiratory: Generalized, Diminished Cardiovascular: Normal : Normal Auscultation: Bowel Sounds: Increased Palpation: Normal Tenderness: Normal Skin: Normal Musculoskeletal: Normal Psychiatric: Normal Mood Description: Calm Affect: Normal Speech Pattern: Clear - Laboratory and Diagnostics Result Diagrams: 05/07/19 05:27 05/07/19 05:27 Labs: Laboratory WBC 12.9 X10^3/uL (3.6-10.0) H 05/07/19 05:27 RBC 4.28 X10^6/uL (3.5-5.4) 05/07/19 05:27 Hgb 12.9 g/dL (12.0-16.0) 05/07/19 05:27 Hct 38.7 % (36.0-47.0) 05/07/19 05:27 MCV 90.3 fL (80.0-100.0) 05/07/19 05:27 MCH 30.1 pg (27.0-34.0) 05/07/19 05:27 MCHC 33.3 g/dL (33.0-35.0) 05/07/19 05:27 RDW 14.6 % (11.6-16.5) 05/07/19 05:27 Plt Count 238 X10^3/uL (150.0-450.0) 05/07/19 05:27 Plt Count Comment Adequate (ADEQUATE) 05/04/19 22:45 MPV 8.3 fL (7.4-11.0) 05/07/19 05:27 Neut % (Auto) 79.0 % (42.0-75.0) H 05/07/19 05:27 Lymph % (Auto) 13.2 % (21.0-51.0) L 05/07/19 05:27 [place] % (Auto) 6.4 % (0.0-13.0) 05/07/19 05:27 Eos % (Auto) 0.6 % (0.9-2.9) L 05/07/19 05:27 Baso % (Auto) 0.8 % (0.2-1.0) 05/07/19 05:27 Neut # (Auto) 10.2 x10^3/uL (2.2-4.8) H 05/07/19 05:27 Lymph # (Auto) 1.7 X10^3/uL (1.3-2.9) 05/07/19 05:27 [place] # (Auto) 0.8 x10^3/uL (0.3-0.8) 05/07/19 05:27 Eos # (Auto) 0.1 x10^3/uL (0.0-0.2) 05/07/19 05:27 Baso # (Auto) 0.1 X10^3/uL (0.0-0.1) 05/07/19 05:27 Absolute Nucleated RBC 0.0 /100WBC 05/07/19 05:27 Total Counted 100 05/04/19 22:45 Neutrophils % (Manual) 90 % (39-76) H 05/04/19 22:45 Band Neutrophils % 1 % (0-10) 05/04/19 22:45 Lymphocytes % (Manual) 4 % (13-43) L 05/04/19 22:45 Monocytes % (Manual) 5 % (4-9) 05/04/19 22:45 Plt Morphology Comment Normal (NORMAL) 05/04/19 22:45 RBC Morphology Normal (NORMAL) 05/04/19 22:45 Sodium 137 mmol/L (136-145) 05/07/19 05:27 Corrected Sodium 138 mmol/L (136-145) 05/07/19 05:27 Potassium 3.8 mmol/L (3.5-5.1) 05/07/19 05:27 Chloride 101 mmol/L (98-107) 05/07/19 05:27 Carbon Dioxide 30.1 mmol/L (21-32) 05/07/19 05:27 BUN 12 mg/dL (7-18) 05/07/19 05:27 Creatinine 0.99 mg/dL (0.55-1.02) 05/07/19 05:27 Est GFR (MDRD) Af Amer > 60 (>60) 05/07/19 05:27 Est GFR (MDRD) Non-Af 58 (>60) L 05/07/19 05:27 Glucose 127 mg/dL (65-99) H 05/07/19 05:27 POC Glucose (mg/dL) 110 mg/dL (65-99) H 05/07/19 11:29 Calcium 8.5 mg/dL (8.5-10.1) 05/07/19 05:27 Corrected Calcium 9.4 mg/dL (8.5-10.1) 05/07/19 05:27 Magnesium 2.0 mg/dL (1.7-2.9) 05/05/19 04:15 Total Bilirubin 0.70 mg/dL (0.2-1.0) 05/07/19 05:27 AST 26 Units/L (15-37) 05/07/19 05:27 ALT 20 Units/L (12-78) 05/07/19 05:27 Alkaline Phosphatase 75 Units/L (46-116) 05/07/19 05:27 Total Protein 6.7 g/dL (6.4-8.2) 05/07/19 05:27 Albumin 2.9 g/dL (3.4-5.0) L 05/07/19 05:27 Globulin 3.8 g/dL (2.5-4.5) 05/07/19 05:27 Albumin/Globulin Ratio 0.8 Ratio (1.1-2.1) L 05/07/19 05:27 Specimen Type Clean catch urine 05/05/19 00:07 Urine Color Yellow (YELLOW) 05/05/19 00:07 Urine Appearance Hazy (CLEAR) 05/05/19 00:07 Urine pH 8.0 (5.0 - 8.0) 05/05/19 00:07 Ur Specific [place] 1.010 (1.000-1.030) 05/05/19 00:07 Urine Protein Negative (NEGATIVE) 05/05/19 00:07 Urine Glucose (UA) Negative (NEGATIVE) 05/05/19 00:07 Urine Ketones Negative (NEGATIVE) 05/05/19 00:07 Urine Occult Blood 2+ (NEGATIVE) 05/05/19 00:07 Urine Nitrite Negative (NEGATIVE) 05/05/19 00:07 Urine Bilirubin Negative (NEGATIVE) 05/05/19 00:07 Urine Urobilinogen Normal (NORMAL) 05/05/19 00:07 Ur Leukocyte Esterase 1+ (NEGATIVE) 05/05/19 00:07 Urine RBC 3-5 /HPF (0-3) A 05/05/19 00:07 Urine WBC 0-2 /HPF (0-5) 05/05/19 00:07 Ur Squamous Epith Cells Rare /HPF (NEGATIVE) 05/05/19 00:07 Urine Bacteria Negative /HPF (NEGATIVE) 05/05/19 00:07 Ur Culture Indicated? No/not indicated 05/05/19 00:07 - Plan (1) Gastritis Status: Acute Qualifiers: Gastritis type: unspecified gastritis Chronicity: acute Gastritis bleeding: without bleeding Qualified Code(s): K29.00 - Acute gastritis without bleeding Plan: ADMIT, NORMAL SALINE AT 80 ML/HR, THE POTASSIUM AND MAGNESIUM PROTOCOLS, ZOFRAN 4MG IV Q4H PRN, AND HOME MEDICATIONS WERE RESUMED (2) Nausea and vomiting Status: Acute Qualifiers: Vomiting type: unspecified Vomiting Intractability: non-intractable Qualified Code(s): R11.2 - Nausea with vomiting, unspecified (3) Altered mental status Status: Acute Qualifiers: Altered mental status type: transient alteration of awareness Qualified Code(s): R40.4 - Transient alteration of awareness
== END 2019-05-07 13:15 | disposition home or self-care (01) ==
LOC: OBS → MED/SURG 05-05 15:00
PROVIDERS: ADMIT Internal Medicine; ATTEND Internal Medicine
DX: E11.65 Type 2 diabetes mellitus with hyperglycemia; R40.4 Transient alteration of awareness; K29.00 Acute gastritis without bleeding; I10 Essential (primary) hypertension; Z79.899 Other long term (current) drug therapy; R11.2 Nausea with vomiting, unspecified; R19.7 Diarrhea, unspecified; I48.91 Unspecified atrial fibrillation
CPT/HCPCS: 36415; 70450; 71010; 71045; 74000; 74018; 80053; 81001; 83735; 84132; 85025; 96360; 96361; 99281; A4216; A4222; G0378; J7030

== ENCOUNTER 2019-11-25 16:21 | Observation (INO) ==
[2019-11-25] MEDS ORDERED: NS 1000 ML 1,000 ML ONE (18:01)
[2019-11-25] MEDS: NS 1000 ML 1,000 ML IV SCH (18:20)
[2019-11-25 18:24] LABS: BASOPHILS # (AUTO) 0.1 X10^3/uL (0.0-0.1); BASOPHILS % (AUTO) 0.9 % (0.2-1.0); EOSINOPHILS # (AUTO) 0.2 x10^3/uL (0.0-0.2); HEMATOCRIT 33.9 % (36.0-47.0); HEMOGLOBIN 11.3 g/dL (12.0-16.0); LYMPHOCYTES # (AUTO) 1.8 X10^3/uL (1.3-2.9); LYMPHOCYTES % (AUTO) 22.8 % (21.0-51.0); MEAN CORPUSCULAR HEMOGLOBIN 29.7 pg (27.0-34.0); MEAN CORPUSCULAR HGB CONC 33.3 g/dL (33.0-35.0); MEAN CORPUSCULAR VOLUME 89.1 fL (80.0-100.0); MEAN PLATELET VOLUME 7.5 fL (7.4-11.0); MONOCYTES # (AUTO) 0.7 x10^3/uL (0.3-0.8); MONOCYTES % (AUTO) 8.5 % (0.0-13.0); NEUTROPHILS # (AUTO) 5.3 x10^3/uL (2.2-4.8); NEUTROPHILS % (AUTO) 65.8 % (42.0-75.0); PLATELET COUNT 239 X10^3/uL (150.0-450.0); RED BLOOD COUNT 3.81 X10^6/uL (3.5-5.4); RED CELL DISTRIBUTION WIDTH 14.9 % (11.6-16.5)
[2019-11-25 18:36] LABS: ALBUMIN 2.8 g/dL (3.4-5.0); CALCIUM 8.1 mg/dL (8.5-10.1); CARBON DIOXIDE 30.3 mmol/L (21-32); COR CA(FOR HYPOALB) 9.1 mg/dL (8.5-10.1); CREATININE 1.21 mg/dL (0.55-1.02); TOTAL PROTEIN 6.5 g/dL (6.4-8.2)
[2019-11-25] MEDS: SNACK - Diabetic Appropriate PO SCH (20:00)
[2019-11-25] MEDS ORDERED: NORCO 5/325 MG TAB PO PRN (20:27)
[2019-11-25] MEDS ORDERED: POTASSIUM CHL 40 MEQ/NS 0.45% 500 ML IV PRN (20:29)
[2019-11-25] MEDS ORDERED: POTASSIUM CHL 60 MEQ/NS 0.45% 500 ML IV PRN (20:29)
[2019-11-25] MEDS ORDERED: MAGNESIUM SULFATE 1 GRAM/100 mL PREMIX 1 GM/100 ML BAG IV PRN (20:29)
[2019-11-25] MEDS ORDERED: MICRO K EXTEN CAP 10 MEQ PO PRN (20:29)
[2019-11-25] MEDS ORDERED: KLOR-CON PO PRN (20:29)
[2019-11-25] MEDS ORDERED: POTASSIUM CHLORIDE LIQ 20 MEQ UDC PO PRN (20:29)
[2019-11-25] MEDS ORDERED: K-RIDER 10 MEQ/NS 100 ML 10 MEQ/100 ML BAG IV PRN (20:29)
[2019-11-25 20:45] LABS: BILIRUBIN,URINE NEGATIVE (NEGATIVE); BLOOD/HEMOGLOBIN,URINE 3+ (NEGATIVE); GLUCOSE, URINE NEGATIVE (NEGATIVE); KETONES,URINE 1+ (NEGATIVE); LEUKOCYTE ESTERASE ,URINE 1+ (NEGATIVE); NITRITES,URINE NEGATIVE (NEGATIVE); PROTEIN,URINE 1+ (NEGATIVE); UROBILINOGEN,URINE NORMAL (NORMAL)
[2019-11-25] MEDS ORDERED: K-DUR TAB 20 MEQ PO ONE (20:47)
[2019-11-25] MEDS ORDERED: NORCO 5/325 MG TAB ONE (20:48)
[2019-11-25 20:55] LABS: APPEARANCE,URINE SLIGHTLY HAZY (CLEAR); COLOR,URINE YELLOW (YELLOW)
[2019-11-25 20:56] LABS: AMORPHOUS SEDIMENT,UR 1+ /HPF (NEGATIVE); BACTERIA,URINE TRACE /HPF (NEGATIVE); CALCIUM OXALATE CRYSTALS,UR MODERATE /HPF (NEGATIVE); MUCUS,URINE FEW /HPF (NEGATIVE); SQUAMOUS EPITHELIAL CELL,UR FEW /HPF (NEGATIVE)
[2019-11-25] MEDS: K-DUR TAB 20 MEQ PO PRN (21:04)
[2019-11-26] MEDS: NS 1000 ML 1,000 ML IV SCH ×2 (05:54→20:28)
[2019-11-26 06:35] LABS: BASOPHILS % (AUTO) 0.6 % (0.2-1.0); EOSINOPHILS # (AUTO) 0.2 x10^3/uL (0.0-0.2); HEMATOCRIT 33.8 % (36.0-47.0); HEMOGLOBIN 11.2 g/dL (12.0-16.0); LYMPHOCYTES # (AUTO) 1.5 X10^3/uL (1.3-2.9); LYMPHOCYTES % (AUTO) 18.8 % (21.0-51.0); MEAN CORPUSCULAR HEMOGLOBIN 29.6 pg (27.0-34.0); MEAN CORPUSCULAR HGB CONC 33.2 g/dL (33.0-35.0); MEAN PLATELET VOLUME 7.7 fL (7.4-11.0); MONOCYTES # (AUTO) 0.6 x10^3/uL (0.3-0.8); MONOCYTES % (AUTO) 7.1 % (0.0-13.0); NEUTROPHILS # (AUTO) 5.6 x10^3/uL (2.2-4.8); NEUTROPHILS % (AUTO) 71.5 % (42.0-75.0); PLATELET COUNT 228 X10^3/uL (150.0-450.0); RED CELL DISTRIBUTION WIDTH 15.3 % (11.6-16.5); WHITE BLOOD COUNT 7.9 X10^3/uL (3.6-10.0)
[2019-11-26 06:55] LABS: ALANINE AMINOTRANSFERASE 17 Units/L (12-78); ALBUMIN 2.7 g/dL (3.4-5.0); ALKALINE PHOSPHATASE 73 Units/L (46-116); ASPARTATE AMINO TRANSFERASE 16 Units/L (15-37); BLOOD UREA NITROGEN 18 mg/dL (7-18); CARBON DIOXIDE 28.8 mmol/L (21-32); CHLORIDE 110 mmol/L (98-107); COR NA(FOR HYPERGLY) 146 mmol/L (136-145); CREATININE 1.07 mg/dL (0.55-1.02); SODIUM 145 mmol/L (136-145); TOTAL PROTEIN 6.4 g/dL (6.4-8.2); eGFR NON BLACK RACES 52 (>60)
[2019-11-26] MEDS: K-DUR TAB 20 MEQ PO PRN (10:22)
[2019-11-26] MEDS ORDERED: AQUA-MEPHYTON ADULT INJ SC ONE (12:50)
[2019-11-26 13:58] VITALS: BMI 41.8
--- NOTE | 2019-11-26 14:45 | CT ---
HISTORYLEFT FLANK PAINSSTUDYABDOMEN/PELVIS W/O CONCOMPARISONNone.TECHNIQUEMultiple axial images of the abdomen and pelvis were obtained from the lung bases to the pubic symphysis without the administration of IV contrast. Dose reduction techniques including Automated Exposure Control (AEC) and adjustment of mA and kV were utilized.Study severely limited secondary to lack of IV and oral contrast.FINDINGSCardiomegaly. Bibasilar scarring versus atelectasis. Otherwise, the visualized portions of the lung bases are unremarkable . The liver, spleen, pancreas, kidneys, and adrenal glands are unremarkable in their CT appearance. The gallbladder is surgically absent. No significant mesenteric lymphadenopathy or stranding can be observed. No free fluid or free air is seen within the abdomen. Limited evaluation of the large and small bowel secondary to lack of oral contrast and collapse. Diverticulosis without evidence of diverticulitis. Remaining large and small bowel appears normal. The appendix is not well seen, but no secondary signs to suggest acute appendicitis. The uterus is surgically absent. No suspicious adnexal lesions. The urinary bladder is grossly unremarkable. Scattered vascular calcifications without evidence of aneurysmal dilatation. Degenerative changes of the spine. No aggressive osseous lesions.IMPRESSIONOne. No CT evidence of acute abdominal/pelvic pathology.Two. Other chronic findings as above.Electronically signed by: ANTHONY ANDREWS (Nov 26, 2019 14:44:24)
--- NOTE | 2019-11-26 18:21 | DR.H&P ---
H&P - History & Physical for Day of: H&P Date: 11/25/19 - Chief Complaint Chief Complaint: LOWER BACK PAIN - History of Present Illness History of Present Illness: IS AN 79 YEAR OLD PATIENT OF OURS. SHE PRESENTED TO THE HOSPITAL A DIRECT ADMISSION DUE TO COMPLAINTS OF SEVERE, PERSISTENT LOWER BACK PAIN. SHE DENIES BEING ABLE TO AMBULATE WITHOUT HAVING SEVERE PAIN. SYMPTOMS STARTED ONE DAY PRIOR TO ARRIVAL. SHE REPORTS USE OF HER REGULAR HOME MEDICATION OF GABAPENTIN, TYLENOL, AND IBUPROFEN WITHOUT IMPROVEMENT IN SYMPTOMS. SHE DOES HAVE A HISTORY OF KIDNEY STONES. SHE DENIES KNOWLEDGE OF BLOOD IN HER URINE. PAIN IS CONSTANT, DULL, AND IS RATED 8/10. ON ARRIVAL TO THE HOSPITAL, VITALS WERE 98.1-55-16-95%-104/51. LABS WERE OBTAINED. ABNORMAL LAB VALUES INCLUDE THE FOLLOWING: HGB 11.3, HCT 33.9, INR 6.94, CREATININE 1.21, GLUCOSE 149, CALCIUM 8.1, ALBUMIN 2.8. URINALYSIS REVEALED: WBC 3-5, RBC 5-10, LEUKOCYTES 1+, BACTERIA TRACE, OCCULT BLOOD 3+. A URINE CULTURE WAS SET UP. AN ABDOMEN/PELVIS CT WITHOUT CONTRAST WAS OBTAINED DUE TO SUSPECTED RENAL STONE AND REVEALED: No CT evidence of acute abdominal/pelvic pathology. PATIENT REPORTS THAT SHE WAS PRESCRIBED ELIQUIS, HOWEVER, AFTER THE COST OF IT WENT UP, SHE CHANGED HERSELF BACK TO COUMADIN. SHE DENIES HAVING HER LEVELS MONITORED. SHE WAS GIVEN VITAMIN K 5MG SC X 1 DOSE DUE TO ELEVATED INR. WE STARTED HER ON NS AT 80 ML/HR, NORCO 5/325MG PO Q6H PRN, AND THE POTASSIUM AND MAGNESIUM PROTOCOLS. OTHERWISE, WE PLAN TO FOLLOW UP WITH AM LABS AND CONTINUE TO MONITOR. - Past Medical History Past Medical History: Anxiety, Depression, Diabetes, Hypertension - Past Surgical History Surgical History: Cholecystectomy, Hysterectomy, Mastectomy - Family History Family Medical History: Diabetes Mellitus, Hypertension - Social History Type of Tobacco Use: None Alcohol Use: None Drug Use: None - Medications Home Medications: No Known Drug Allergies [NKDA] Allergy (Verified 11/25/19 18:38) CONTINUE taking the following medications amiodarone 200 mg PO DAILY 11/26/19 [History] amlodipine 5 mg PO QHS 11/26/19 [History] apixaban [Eliquis] 5 mg PO BID 11/26/19 [History] clonazepam 2 mg PO QHS 11/26/19 [History] ergocalciferol (vitamin D2) [Vitamin D2] 1,250 mcg PO WEEKLY 11/26/19 [History] furosemide [Lasix] 40 mg PO BID PRN 11/26/19 [History] gabapentin 600 mg PO QHS 11/26/19 [History] gentamicin 1 applic TOPICAL BID 11/26/19 [History] glimepiride 4 mg PO DAILY 11/26/19 [History] lisinopril 20 mg PO BID 11/26/19 [History] meclizine 50 mg PO HS 11/26/19 [History] metoprolol succinate 50 mg PO QAM 11/26/19 [History] sertraline [Zoloft] 50 mg PO QAM 11/26/19 [History] sitagliptin [Januvia] 100 mg PO DAILY 11/26/19 [History] - Review of Systems Constitutional: Weakness Eyes: No Symptoms Reported ENT: No Symptoms Reported Respiratory: No Symptoms Reported Cardiovascular: No Symptoms Reported Gastrointestinal: No Symptoms Reported Genitourinary: No Symptoms Reported Musculoskeletal: Back Pain Skin: No Symptoms Reported Neurological: Weakness - Physical Exam Vital Signs: Temperature 97.9 F Pulse Rate [Bilateral Radial] 75 Respiratory Rate 18 Blood Pressure [Right Arm] 176/89 O2 Sat by Pulse Oximetry 94 Oriented: Normal Eyes: Normal Ear: Normal Nose: Normal Throat: Normal Respiratory: Diminished Throughout Cardiovascular: Normal : Normal Auscultation: Bowel Sounds: Normal Palpation: Normal Tenderness: Normal Skin: Normal Musculoskeletal: Back:Lumbar Psychiatric: Normal Mood Description: Calm Affect: Normal Speech Pattern: Clear - Assessment/Plan (1) Intractable low back pain Status: Acute Plan: ADMIT, NS AT 80 ML/HR, NORCO 5/325MG PO Q6H PRN, AND THE POTASSIUM AND MAGNESIUM PROTOCOLS. (2) Coumadin toxicity Qualifiers: Encounter type: initial encounter Injury intent: accidental or unintentional Qualified Code(s): T45.511A - Poisoning by anticoagulants, accidental (unintentional), initial encounter Status: Acute Plan: VITAMIN K 5MG SC X 1 DOSE, CONTINUE TO MONITOR INR - Allergies Allergies/Adverse Reactions: Allergies Allergy/AdvReac Type Severity Reaction Status Date / Time No Known Drug Allergies Allergy Verified 11/25/19 18:38 [NKDA]
[2019-11-26] MEDS ORDERED: NORVASC TAB 5 MG PO SCH (20:00)
[2019-11-26] MEDS: SNACK - Diabetic Appropriate PO SCH (20:28)
[2019-11-26] MEDS ORDERED: KLONOPIN TAB 1 MG PO SCH (21:00)
[2019-11-26] MEDS: ZESTRIL TAB 20 MG PO SCH (23:47)
[2019-11-27] MEDS: NS 1000 ML 1,000 ML IV SCH ×2 (03:10→10:52)
[2019-11-27 06:32] LABS: BASOPHILS # (AUTO) 0.2 X10^3/uL (0.0-0.1); BASOPHILS % (AUTO) 1.6 % (0.2-1.0); EOSINOPHILS # (AUTO) 0.1 x10^3/uL (0.0-0.2); EOSINOPHILS % (AUTO) 0.9 % (0.9-2.9); HEMATOCRIT 38.3 % (36.0-47.0); HEMOGLOBIN 12.8 g/dL (12.0-16.0); LYMPHOCYTES # (AUTO) 1.4 X10^3/uL (1.3-2.9); LYMPHOCYTES % (AUTO) 12.6 % (21.0-51.0); MEAN CORPUSCULAR HEMOGLOBIN 29.6 pg (27.0-34.0); MEAN CORPUSCULAR HGB CONC 33.3 g/dL (33.0-35.0); MEAN CORPUSCULAR VOLUME 88.7 fL (80.0-100.0); MEAN PLATELET VOLUME 7.5 fL (7.4-11.0); MONOCYTES # (AUTO) 0.6 x10^3/uL (0.3-0.8); MONOCYTES % (AUTO) 5.2 % (0.0-13.0); NEUTROPHILS # (AUTO) 8.6 x10^3/uL (2.2-4.8); NEUTROPHILS % (AUTO) 79.7 % (42.0-75.0); PLATELET COUNT 292 X10^3/uL (150.0-450.0); RED BLOOD COUNT 4.31 X10^6/uL (3.5-5.4); RED CELL DISTRIBUTION WIDTH 15.1 % (11.6-16.5); WHITE BLOOD COUNT 10.8 X10^3/uL (3.6-10.0)
[2019-11-27 06:47] LABS: ALANINE AMINOTRANSFERASE 15 Units/L (12-78); ALBUMIN 3.1 g/dL (3.4-5.0); ALKALINE PHOSPHATASE 89 Units/L (46-116); ASPARTATE AMINO TRANSFERASE 22 Units/L (15-37); BLOOD UREA NITROGEN 10 mg/dL (7-18); CALCIUM 8.6 mg/dL (8.5-10.1); CARBON DIOXIDE 27.2 mmol/L (21-32); CHLORIDE 103 mmol/L (98-107); COR CA(FOR HYPOALB) 9.3 mg/dL (8.5-10.1); COR NA(FOR HYPERGLY) 139 mmol/L (136-145); CREATININE 0.86 mg/dL (0.55-1.02); SODIUM 138 mmol/L (136-145); TOTAL PROTEIN 7.4 g/dL (6.4-8.2); eGFR NON BLACK RACES > 60 (>60)
[2019-11-27] MEDS ORDERED: ZESTRIL TAB 20 MG ONE (08:19)
[2019-11-27] MEDS: ZESTRIL TAB 20 MG PO SCH (08:34)
[2019-11-27 08:41] VITALS: BP 191/79
[2019-11-27] MEDS ORDERED: MILK OF MAGNESIA PO SCH (09:00)
[2019-11-27] MEDS ORDERED: COLACE CAP 100 MG PO SCH (21:00)
[2019-11-27] MEDS ORDERED: NORVASC TAB 5 MG PO SCH (21:00)
== END 2019-11-27 12:38 | disposition home health service (06) ==
LOC: MED/SURG → MERGE 16:23
PROVIDERS: ADMIT Internal Medicine; ATTEND Internal Medicine
DX: R10.84 Generalized abdominal pain; E11.65 Type 2 diabetes mellitus with hyperglycemia; F41.8 Other specified anxiety disorders; Z87.442 Personal history of urinary calculi; M54.5 Low back pain; R94.31 Abnormal electrocardiogram [ECG] [EKG]; I10 Essential (primary) hypertension; T45.511A Poisoning by anticoagulants, accidental (unintentional), initial encounter; Z79.01 Long term (current) use of anticoagulants; R26.89 Other abnormalities of gait and mobility

== ENCOUNTER 2020-02-12 09:39 | Observation (INO) ==
[2020-02-12 09:44] VITALS: BMI 29.8
[2020-02-12] MEDS ORDERED: NS 500 ML IV 500 ML IV ONE ×2 (09:55→10:06)
--- NOTE | 2020-02-12 09:56 | DR.EXTPAIN ---
HPI Time seen Time Seen by Provider: 02/12/20 09:42 Complaint/Symptoms Chief Complaint Doctor Comments: Fell midnight last night and could not get up. Mildly lethargic in Er but answers questions appropriately. Patient on benzodiazepines and possibly opiates. Left shoulder pain. Nurses notes reviewed Nurses Notes Review: Yes Source History Provided: Patient and EMS Mode of arrival Mode of Arrival: Stretcher Context History of: Arthritis Associated signs and symptoms Associated Signs and Symptoms: Avulsion (left shoulder) PMH PMH Past Medical History: Anxiety, Depression, Diabetes and Hypertension Past Surgical History: Yes Surgical History: Cholecystectomy, Hysterectomy, Mastectomy and Other Family History Family Medical History: Diabetes Mellitus and Hypertension Social History Do you use any recreational Drugs:: No ROS Review of Systems Constitutional: Weakness Eyes: No Symptoms Reported ENTM: No Symptoms Reported Respiratoy: No Symptoms Reported Cardiovascular: No Symptoms Reported Genitourinary: No Symptoms Reported Neurological: Weakness Musculoskeletal: Left and Shoulder Integumentary: No Symptoms Reported Hematologic/Lymphatic: No Symptoms Reported Endocrine: No Symptoms Reported Psychiatric: Depression All Other Systems: Reviewed and Negative PE Vital Signs Vitals: Temperature 98.1 F Pulse Rate 58 Respiratory Rate 30 Blood Pressure [Right Arm] 191/79 Blood Pressure 146/64 O2 Sat by Pulse Oximetry 98 General Limitations: No Limitations General Appearance: In No Apparent Distress and Lethargic (mildly) Head Head Exam: Normal Inspection, Atraumatic and Normocephalic Eyes Eye exam: Normal Appearance and EOMI ENT ENT Exam: Normal Exam and Normal Oropharynx Neck Neck Exam: Normal Inspection, Full ROM and Trachea Midline Chest Chest Inspection: Normal Inspection Respiratory Respiratory Exam: Normal Lung Sounds Bilat; negative Accessory Muscle Use Respiratory Exam: Bilateral: Clear to Auscultation Cardiovascular Cardiovascular Exam: Regular Rate Abdominal Exam Abdominal Exam: Normal Inspection, Normal Bowel Sounds and Soft; negative Distention, Tenderness and Guarding Extremities Extremities Exam: Normal Inspection, Full ROM and Tenderness (left shoulder) Upper Extremities Shoulder Exam: Full ROM and Abrasion Arm Exam: Normal Inspection and Full ROM Elbow Exam: Normal Inspection and Full ROM Forearm Exam: Normal Inspection and Full ROM Hand Exam: Normal Inspection and Full ROM Neuromotor Exam: Normal Exam Lower Extremities Hip/Pelvis Exam: Normal Inspection Upper Leg Exam: Normal Inspection Knee Exam: Normal Inspection Lower Leg Exam: Normal Inspection Ankle Exam: Normal Inspection Neurovascular/Tendon Exam: Normal Capillary Refill Gait Exam: Observed and Normal Back Back Exam: Normal Inspection and Full ROM Neurological Neurological Exam: Alert, Oriented X3 and CN II-XII Intact Psychiatric Psychiatric Exam: Normal Affect Skin Skin Exam: Erythema (abrasion, skin tears) Type of Lesion: Abrasion COURSE Consultation Called: 13:39 Call Returned: 13:39 Consultation Comments: Case discussed with DR Ayon (Dr. Aaron GALINDO) observation ROR Labs Reviewed Result Diagrams: 02/12/20 10:04 02/12/20 10:04 Laboratory: WBC 12.3 X10^3/uL (3.6-10.0) H 02/12/20 10:04 RBC 4.35 X10^6/uL (3.5-5.4) 02/12/20 10:04 Hgb 12.7 g/dL (12.0-16.0) 02/12/20 10:04 Hct 39.2 % (36.0-47.0) 02/12/20 10:04 MCV 90.2 fL (80.0-100.0) 02/12/20 10:04 MCH 29.3 pg (27.0-34.0) 02/12/20 10:04 MCHC 32.5 g/dL (33.0-35.0) L 02/12/20 10:04 RDW 17.2 % (11.6-16.5) H 02/12/20 10:04 Plt Count 240 X10^3/uL (150.0-450.0) 02/12/20 10:04 MPV 8.0 fL (7.4-11.0) 02/12/20 10:04 Neut % (Auto) 81.4 % (42.0-75.0) H 02/12/20 10:04 Lymph % (Auto) 10.5 % (21.0-51.0) L 02/12/20 10:04 [place] % (Auto) 7.1 % (0.0-13.0) 02/12/20 10:04 Eos % (Auto) 0.6 % (0.9-2.9) L 02/12/20 10:04 Baso % (Auto) 0.4 % (0.2-1.0) 02/12/20 10:04 Neut # (Auto) 10.0 x10^3/uL (2.2-4.8) H 02/12/20 10:04 Lymph # (Auto) 1.3 X10^3/uL (1.3-2.9) 02/12/20 10:04 [place] # (Auto) 0.9 x10^3/uL (0.3-0.8) H 02/12/20 10:04 Eos # (Auto) 0.1 x10^3/uL (0.0-0.2) 02/12/20 10:04 Baso # (Auto) 0.0 X10^3/uL (0.0-0.1) 02/12/20 10:04 Absolute Nucleated RBC 0.0 /100WBC 02/12/20 10:04 Sodium 144 mmol/L (136-145) 02/12/20 10:04 Corrected Sodium 145 mmol/L (136-145) 02/12/20 10:04 Potassium 4.4 mmol/L (3.5-5.1) 02/12/20 10:04 Chloride 110 mmol/L (98-107) H 02/12/20 10:04 Carbon Dioxide 20.2 mmol/L (21-32) L 02/12/20 10:04 BUN 24 mg/dL (7-18) H 02/12/20 10:04 Creatinine 1.26 mg/dL (0.55-1.02) H 02/12/20 10:04 Est GFR (MDRD) Af Amer 53 (>60) L 02/12/20 10:04 Est GFR (MDRD) Non-Af 43 (>60) L 02/12/20 10:04 Glucose 131 mg/dL (65-99) H 02/12/20 10:04 Calcium 8.7 mg/dL (8.5-10.1) 02/12/20 10:04 Corrected Calcium TNP 02/12/20 10:04 Total Bilirubin 0.40 mg/dL (0.2-1.0) 02/12/20 10:04 AST 19 Units/L (15-37) 02/12/20 10:04 ALT 16 Units/L (12-78) 02/12/20 10:04 Alkaline Phosphatase 94 Units/L (46-116) 02/12/20 10:04 Creatine Kinase 75 Units/L (26-192) 02/12/20 10:04 CK-MB (CK-2) 1.4 ng/mL (0-4.0) 02/12/20 10:04 CK/CKMB % Calc 1.9 % (<4) 02/12/20 10:04 Troponin I < 0.02 ng/mL (0-1.5) 02/12/20 10:04 Total Protein 7.7 g/dL (6.4-8.2) 02/12/20 10:04 Albumin 3.5 g/dL (3.4-5.0) 02/12/20 10:04 Globulin 4.2 g/dL (2.5-4.5) 02/12/20 10:04 Albumin/Globulin Ratio 0.8 Ratio (1.1-2.1) L 02/12/20 10:04 Specimen Type Catherized urine 02/12/20 10:50 Urine Color Yellow (YELLOW) 02/12/20 10:50 Urine Appearance Clear (CLEAR) 02/12/20 10:50 Urine pH 5.0 (5.0 - 8.0) 02/12/20 10:50 Ur Specific [place] 1.015 (1.000-1.030) 02/12/20 10:50 Urine Protein Negative (NEGATIVE) 02/12/20 10:50 Urine Glucose (UA) Negative (NEGATIVE) 02/12/20 10:50 Urine Ketones Negative (NEGATIVE) 02/12/20 10:50 Urine Occult Blood 2+ (NEGATIVE) 02/12/20 10:50 Urine Nitrite Negative (NEGATIVE) 02/12/20 10:50 Urine Bilirubin Negative (NEGATIVE) 02/12/20 10:50 Urine Urobilinogen Normal (NORMAL) 02/12/20 10:50 Ur Leukocyte Esterase Negative (NEGATIVE) 02/12/20 10:50 Urine RBC 3-5 /HPF (0-3) A 02/12/20 10:50 Urine WBC None seen /HPF (0-5) 02/12/20 10:50 Ur Squamous Epith Cells Rare /HPF (NEGATIVE) 02/12/20 10:50 Urine Bacteria Negative /HPF (NEGATIVE) 02/12/20 10:50 Ur Culture Indicated? No/not indicated 02/12/20 10:50 Urine Opiates Screen Negative (NEG=<300) 02/12/20 10:50 Urine Methadone Screen Negative (NEG=<300) 02/12/20 10:50 Ur Barbiturates Screen Negative (NEG=<200) 02/12/20 10:50 Ur Phencyclidine Scrn Negative (NEG=<25) 02/12/20 10:50 Ur Amphetamines Screen Negative (NEG=<1000) 02/12/20 10:50 U Benzodiazepines Scrn Negative (NEG=<200) 02/12/20 10:50 Urine Cocaine Screen Negative (NEG=<300) 02/12/20 10:50 U Marijuana (THC) Screen Negative (NEG=<50) 02/12/20 10:50 SARS CoV-2 RNA Rapid WILIAN Negative (NEGATIVE) 02/12/20 13:45 XRAY XRAY Interpreted by: Radiologist X-ray Results: CT brain: NO acute findings EKG Rate: 58 [place]: Normal Rhythm: NSR Block: None Hypertrophy: None ST: Normal Opioid Opioid Risk Tool Age ([place] box if 16-45): No History of Preadolescent Sexual Abuse: No Total: 0 Total Score Risk Category: Low Risk Copyright: Rony REDDY predicting aberrant behaviors Diagnosis Discharge Problem: Medication side effect Instructions Forms: Precautions for COVID19 Patient Portal Social Distancing
[2020-02-12] MEDS ORDERED: NARCAN INJ IVP ONE (09:57)
[2020-02-12] MEDS ORDERED: NARCAN INJ ONE (10:06)
[2020-02-12 10:13] LABS: BASOPHILS % (AUTO) 0.4 % (0.2-1.0); EOSINOPHILS # (AUTO) 0.1 x10^3/uL (0.0-0.2); EOSINOPHILS % (AUTO) 0.6 % (0.9-2.9); HEMATOCRIT 39.2 % (36.0-47.0); HEMOGLOBIN 12.7 g/dL (12.0-16.0); LYMPHOCYTES # (AUTO) 1.3 X10^3/uL (1.3-2.9); LYMPHOCYTES % (AUTO) 10.5 % (21.0-51.0); MEAN CORPUSCULAR HEMOGLOBIN 29.3 pg (27.0-34.0); MEAN CORPUSCULAR HGB CONC 32.5 g/dL (33.0-35.0); MEAN CORPUSCULAR VOLUME 90.2 fL (80.0-100.0); MONOCYTES # (AUTO) 0.9 x10^3/uL (0.3-0.8); MONOCYTES % (AUTO) 7.1 % (0.0-13.0); NEUTROPHILS % (AUTO) 81.4 % (42.0-75.0); PLATELET COUNT 240 X10^3/uL (150.0-450.0); RED BLOOD COUNT 4.35 X10^6/uL (3.5-5.4); RED CELL DISTRIBUTION WIDTH 17.2 % (11.6-16.5); WHITE BLOOD COUNT 12.3 X10^3/uL (3.6-10.0)
[2020-02-12 10:30] LABS: BLOOD UREA NITROGEN 24 mg/dL (7-18); CALCIUM 8.7 mg/dL (8.5-10.1); CARBON DIOXIDE 20.2 mmol/L (21-32); CHLORIDE 110 mmol/L (98-107); COR NA(FOR HYPERGLY) 145 mmol/L (136-145); CREATININE 1.26 mg/dL (0.55-1.02); SODIUM 144 mmol/L (136-145); TROPONIN I < 0.02 ng/mL (0-1.5); eGFR NON BLACK RACES 43 (>60)
[2020-02-12 10:34] LABS: ALANINE AMINOTRANSFERASE 16 Units/L (12-78); ALBUMIN 3.5 g/dL (3.4-5.0); ALKALINE PHOSPHATASE 94 Units/L (46-116); ASPARTATE AMINO TRANSFERASE 19 Units/L (15-37); CKMB % 1.9 % (<4); CREATINE KINASE 75 Units/L (26-192); CREATINE KINASE MB 1.4 ng/mL (0-4.0); TOTAL PROTEIN 7.7 g/dL (6.4-8.2)
--- NOTE | 2020-02-12 10:54 | CT ---
HISTORYFall, head injurySTUDYCT head without contrastTechnique: Axial noncontrast images with coronal and sagittal reformats. Dose reduction procedures were used with mA/kv adjusted for body size.[id number]/21/2020FINDINGSThe ventricles are normal in size shape and position. Generalized cortical atrophy is present likely age related. There are no areas of abnormal attenuation to suggest recent or remote CVA, hemorrhage, contusion, mass lesion, or extra-axial fluid collection. The visualized sinuses are clear. The calvarium is intact.IMPRESSIONNo definite acute intracranial abnormalityGeneralized cortical atrophy likely age relatedElectronically signed by: GUANACO FUENTES (Feb 12, 2020 10:52:42)
[2020-02-12 11:07] LABS: BILIRUBIN,URINE NEGATIVE (NEGATIVE); BLOOD/HEMOGLOBIN,URINE 2+ (NEGATIVE); GLUCOSE, URINE NEGATIVE (NEGATIVE); KETONES,URINE NEGATIVE (NEGATIVE); LEUKOCYTE ESTERASE ,URINE NEGATIVE (NEGATIVE); NITRITES,URINE NEGATIVE (NEGATIVE); PROTEIN,URINE NEGATIVE (NEGATIVE); UROBILINOGEN,URINE NORMAL (NORMAL)
[2020-02-12 11:23] LABS: APPEARANCE,URINE CLEAR (CLEAR); COLOR,URINE YELLOW (YELLOW)
[2020-02-12 11:27] LABS: BACTERIA,URINE NEGATIVE /HPF (NEGATIVE); SQUAMOUS EPITHELIAL CELL,UR RARE /HPF (NEGATIVE)
--- NOTE | 2020-02-12 11:52 | RAD ---
PROCEDURE: [Chest x-ray single view].HISTORY: [Leukocytosis and fall. Hypertension, diabetes, previous cholecystectomy, hysterectomy, and mastectomy.].TECHNIQUE: [AP portable view done at 11:29 a.m.].COMPARISON: [05/04/2019].TECHNICAL QUALITY: [Satisfactory].FINDINGS:[Heart size upper limits of normal.Mediastinum and hilar regions show no masses or lymphadenopathy.Normal central vascularity.Lungs show no pulmonary consolidation, masses, pleural fluid, or pneumothorax.No acute bony abnormality].IMPRESSION:1. [Unchanged heart size upper limits of normal.2. No other evidence of active disease].[ ]Electronically signed by: Peter Rodrigues (Feb 12, 2020 11:50:12)
[2020-02-12] MEDS: NS 1000 ML 1,000 ML IV SCH (15:50)
[2020-02-12] MEDS: SNACK - Diabetic Appropriate PO SCH (22:32)
[2020-02-13] MEDS: NS 1000 ML 1,000 ML IV SCH ×3 (03:41→20:23)
[2020-02-13 06:49] LABS: BASOPHILS # (AUTO) 0.1 X10^3/uL (0.0-0.1); BASOPHILS % (AUTO) 0.5 % (0.2-1.0); EOSINOPHILS # (AUTO) 0.1 x10^3/uL (0.0-0.2); EOSINOPHILS % (AUTO) 1.3 % (0.9-2.9); HEMATOCRIT 36.5 % (36.0-47.0); LYMPHOCYTES # (AUTO) 1.7 X10^3/uL (1.3-2.9); LYMPHOCYTES % (AUTO) 16.2 % (21.0-51.0); MEAN CORPUSCULAR HEMOGLOBIN 29.5 pg (27.0-34.0); MEAN CORPUSCULAR HGB CONC 32.8 g/dL (33.0-35.0); MEAN CORPUSCULAR VOLUME 89.8 fL (80.0-100.0); MEAN PLATELET VOLUME 8.5 fL (7.4-11.0); MONOCYTES # (AUTO) 0.8 x10^3/uL (0.3-0.8); MONOCYTES % (AUTO) 7.3 % (0.0-13.0); NEUTROPHILS # (AUTO) 7.7 x10^3/uL (2.2-4.8); NEUTROPHILS % (AUTO) 74.7 % (42.0-75.0); PLATELET COUNT 221 X10^3/uL (150.0-450.0); RED BLOOD COUNT 4.06 X10^6/uL (3.5-5.4); RED CELL DISTRIBUTION WIDTH 16.8 % (11.6-16.5); WHITE BLOOD COUNT 10.3 X10^3/uL (3.6-10.0)
[2020-02-13 07:12] LABS: ALANINE AMINOTRANSFERASE 15 Units/L (12-78); ALBUMIN 3.1 g/dL (3.4-5.0); ALKALINE PHOSPHATASE 83 Units/L (46-116); ASPARTATE AMINO TRANSFERASE 18 Units/L (15-37); BLOOD UREA NITROGEN 21 mg/dL (7-18); CALCIUM 8.5 mg/dL (8.5-10.1); CARBON DIOXIDE 20.1 mmol/L (21-32); CHLORIDE 113 mmol/L (98-107); COR CA(FOR HYPOALB) 9.2 mg/dL (8.5-10.1); COR NA(FOR HYPERGLY) 146 mmol/L (136-145); CREATININE 1.07 mg/dL (0.55-1.02); SODIUM 145 mmol/L (136-145); TOTAL PROTEIN 6.9 g/dL (6.4-8.2); eGFR NON BLACK RACES 52 (>60)
[2020-02-13] MEDS: AMARYL TAB 4 MG PO SCH (09:33)
[2020-02-13] MEDS: CORDARONE TAB 200 MG PO SCH (09:34)
[2020-02-13] MEDS ORDERED: ZESTRIL TAB 20 MG ONE ×2 (09:38→19:56)
[2020-02-13] MEDS: CHLORTHALIDONE PO SCH (09:41)
[2020-02-13] MEDS: DIAMOX PO SCH (09:41)
[2020-02-13] MEDS: LASIX PO SCH (09:42)
[2020-02-13] MEDS: K-DUR TAB 20 MEQ PO SCH (09:42)
[2020-02-13] MEDS: TOPROL XL PO SCH (09:42)
[2020-02-13] MEDS: ZOLOFT PO SCH (09:43)
[2020-02-13] MEDS: ZESTRIL TAB 20 MG PO SCH ×2 (09:43→20:21)
--- NOTE | 2020-02-13 17:52 | DR.H&P ---
H&P - History & Physical for Day of: H&P Date: 02/13/20 - Chief Complaint Chief Complaint: FALL, LEFT SHOULDER PAIN, WEAKNESS - History of Present Illness History of Present Illness: PT IS 79 WF ER ADMISSION WITH CO WEAKNESS AND FALL WITH LEFT SHOULDER INJURY. NURSING STAFF REPORTS PT WAS STILL CONFUSED ON ARRIVAL EMS, SUSPECTED DUE TO MEDICATION SIDE EFFECTS. PT HAD CT HEAD IN ER WITHOUT ACUTE FINDINGS. PT ADMITTED FOR TREATMENT OF ACUTE ILLNESS. - Past Medical History Past Medical History: Hypertension, Diabetes, Depression, Anxiety Additional Medical History: Cataracts, Atrial Fibrillation, Endometriosis, Back Pain - Past Surgical History Surgical History: Appendectomy, Cholecystectomy, Hysterectomy, Other Additional Surgical History: Cataract Surgery, Cardiac Ablation - Family History Family Medical History: Diabetes Mellitus, Hypertension - Social History Does patient currently use any type of tobacco product: No Have you used tobacco products in the last 12 months: No Type of Tobacco Use: None Does any household member use tobacco: No Alcohol Use: None Drug Use: None - Medications Home Medications: No Known Drug Allergies Allergy (Verified 02/12/20 09:41) CONTINUE taking the following medications acetazolamide 250 mg PO DAILY 02/12/20 [History] bumetanide 2 mg PO BID 02/12/20 [History] chlorthalidone 25 mg PO DAILY 02/12/20 [History] hydrocodone-acetaminophen 1 tab PO Q6H PRN 02/12/20 [History] potassium chloride 20 meq PO DAILY 02/12/20 [History] spironolactone 25 mg PO DAILY 02/12/20 [History] warfarin 5 mg PO DAILY 02/12/20 [History] - Review of Systems Constitutional: Weakness. denies: Fever Eyes: No Symptoms Reported ENT: No Symptoms Reported Respiratory: No Symptoms Reported Cardiovascular: No Symptoms Reported Gastrointestinal: No Symptoms Reported Genitourinary: No Symptoms Reported Musculoskeletal: Shoulder Pain, Back Pain Skin: Bruising, Wound Neurological: Weakness - Physical Exam Vital Signs: Temperature 97.5 F Pulse Rate [Right Brachial] 67 Pulse Rate 59 Respiratory Rate 18 Blood Pressure [Right Arm] 165/70 Blood Pressure 157/81 O2 Sat by Pulse Oximetry 97 Oriented: Normal Eyes: Normal Ear: Normal Nose: Normal Throat: Normal Respiratory: RLL Diminished, LLL Diminished Cardiovascular: Irregular. negative: Edema : Normal Auscultation: Bowel Sounds: Normal Palpation: Normal Tenderness: Normal Skin: Decreased [place], Wound, Bruising Musculoskeletal: Left, Shoulder, Back:Thoracic, Back:Lumbar Psychiatric: Normal Mood Description: Calm Speech Pattern: Clear, Appropriate - Assessment/Plan (1) Weakness Status: Acute Plan: ADMIT, CT HEAD ON ADMISSION. CXR AND BP CONTROL. VERIFY AND RESUME, HOME MEDICATION. PAIN CONTROL, IV HYDRATION (2) TIA (transient ischemic attack) Status: Acute (3) Fall Qualifiers: Encounter type: initial encounter Qualified Code(s): W19.XXXA - Unspecified fall, initial encounter Status: Acute (4) CAD (coronary artery disease) Qualifiers: Coronary Disease-Associated Artery/Lesion type: [place] artery [place] vs. transplanted heart: [place] heart Associated angina: with stable angina Qualified Code(s): I25.118 - Atherosclerotic heart disease of [place] coronary artery with other forms of angina pectoris Status: Chronic (5) Hypertension Qualifiers: Hypertension type: essential hypertension Qualified Code(s): I10 - Essential (primary) hypertension Status: Chronic (6) History of atrial fibrillation Status: Chronic (7) GERD (gastroesophageal reflux disease) Qualifiers: Esophagitis presence: without esophagitis Qualified Code(s): K21.9 - Gastro-esophageal reflux disease without esophagitis Status: Chronic (8) Diabetes mellitus, type 2 Qualifiers: Diabetes mellitus ad terminal makeup operator insulin use: without ad terminal makeup operator use Diabetes mellitus complication status: with neurologic complications Diabetes mellitus complication detail: with autonomic neuropathy Qualified Code(s): E11.43 - Type 2 diabetes mellitus with diabetic autonomic (poly)neuropathy Status: Chronic - Allergies Allergies/Adverse Reactions: Allergies Allergy/AdvReac Type Severity Reaction Status Date / Time No Known Drug Allergies Allergy Verified 02/12/20 09:41
[2020-02-13] MEDS ORDERED: COUMADIN TAB 5 MG (JANTOVEN) ONE (19:56)
[2020-02-13] MEDS ORDERED: NORVASC TAB 5 MG ONE (19:56)
[2020-02-13] MEDS ORDERED: NS 1000 ML 1,000 ML ONE (19:56)
[2020-02-13] MEDS: NORVASC TAB 5 MG PO SCH (20:22)
[2020-02-13] MEDS: SNACK - Diabetic Appropriate PO SCH (20:24)
[2020-02-13] MEDS: COUMADIN TAB 5 MG (JANTOVEN) PO SCH (20:28)
[2020-02-13] MEDS ORDERED: ELIQUIS PO SCH (21:00)
[2020-02-13] MEDS ORDERED: KLONOPIN TAB 1 MG PO PRN (21:00)
[2020-02-14] MEDS: NS 1000 ML 1,000 ML IV SCH ×3 (06:10→21:35)
[2020-02-14 06:54] LABS: BASOPHILS % (AUTO) 0.5 % (0.2-1.0); EOSINOPHILS # (AUTO) 0.2 x10^3/uL (0.0-0.2); EOSINOPHILS % (AUTO) 1.9 % (0.9-2.9); HEMATOCRIT 37.9 % (36.0-47.0); HEMOGLOBIN 12.9 g/dL (12.0-16.0); LYMPHOCYTES # (AUTO) 1.7 X10^3/uL (1.3-2.9); MEAN CORPUSCULAR HEMOGLOBIN 30.5 pg (27.0-34.0); MEAN CORPUSCULAR VOLUME 89.7 fL (80.0-100.0); MEAN PLATELET VOLUME 8.3 fL (7.4-11.0); MONOCYTES % (AUTO) 9.7 % (0.0-13.0); NEUTROPHILS # (AUTO) 7.5 x10^3/uL (2.2-4.8); NEUTROPHILS % (AUTO) 71.9 % (42.0-75.0); PLATELET COUNT 226 X10^3/uL (150.0-450.0); RED BLOOD COUNT 4.23 X10^6/uL (3.5-5.4); RED CELL DISTRIBUTION WIDTH 16.5 % (11.6-16.5); WHITE BLOOD COUNT 10.4 X10^3/uL (3.6-10.0)
[2020-02-14 07:12] LABS: ALANINE AMINOTRANSFERASE 16 Units/L (12-78); ALBUMIN 3.3 g/dL (3.4-5.0); ALKALINE PHOSPHATASE 83 Units/L (46-116); ASPARTATE AMINO TRANSFERASE 21 Units/L (15-37); BLOOD UREA NITROGEN 18 mg/dL (7-18); CALCIUM 8.9 mg/dL (8.5-10.1); CARBON DIOXIDE 22.5 mmol/L (21-32); CHLORIDE 109 mmol/L (98-107); COR CA(FOR HYPOALB) 9.5 mg/dL (8.5-10.1); CREATININE 1.24 mg/dL (0.55-1.02); SODIUM 144 mmol/L (136-145); TOTAL PROTEIN 7.2 g/dL (6.4-8.2); eGFR NON BLACK RACES 44 (>60)
[2020-02-14] MEDS ORDERED: ZESTRIL TAB 20 MG ONE ×2 (07:38→19:36)
[2020-02-14 09:39] LABS: ABG ALLEN TEST POS; ABG BASE EXCESS -4.8 mmol/L (-2.0-2.0); ABG HCO3 19.5 mmol/L (22-26)
[2020-02-14] MEDS: CORDARONE TAB 200 MG PO SCH (10:00)
[2020-02-14] MEDS: ZESTRIL TAB 20 MG PO SCH ×2 (10:00→20:25)
[2020-02-14] MEDS: DIAMOX PO SCH (10:00)
[2020-02-14] MEDS: ZOLOFT PO SCH (10:00)
[2020-02-14] MEDS: AMARYL TAB 4 MG PO SCH (10:00)
[2020-02-14] MEDS: LASIX PO SCH (10:00)
[2020-02-14] MEDS: CHLORTHALIDONE PO SCH (10:00)
[2020-02-14] MEDS: TOPROL XL PO SCH (10:00)
[2020-02-14] MEDS: K-DUR TAB 20 MEQ PO SCH (10:16)
[2020-02-14] MEDS ORDERED: BUTT CREAM (COMPOUND) TOP PRN (10:24)
--- NOTE | 2020-02-14 10:45 | CT ---
[id number] female with altered mental statusSTUDYHead CT without contrastCOMPARISONPrevious head CT from 02/12/2020TECHNIQUEAxial imaging was performed from the vertex to the base of skull without intravenous contrast being administered. Sagittal and coronal reformations were generated. Automated exposure control techniques were used with this exam.FINDINGSGeneralized age related atrophic changes are present. However there is no evidence of intracranial hemorrhage or extracerebral fluid collections. Ventricles are symmetric in size and position with no mass effect seen. Patchy low density is present in a periventricular white matter distribution consistent with chronic small vessel ischemia. On the bone windows, no acute bony abnormality is seen. Visualized aspect of the paranasal sinuses and mastoid air cells are clear..IMPRESSION1. No acute intracranial abnormality is seen on this exam.2. Age related atrophic changes and patchy areas of chronic small vessel ischemia are noted howeverElectronically signed by: HEMANTH HAMILTON (Feb 14, 2020 10:44:32)
[2020-02-14 12:02] LABS: CRYPTOSPORIDIUM PARVUM ANTIGEN NEGATIVE (NEGATIVE); GIARDIA LAMBLIA ANTIGEN NEGATIVE (NEGATIVE)
[2020-02-14] MEDS: NORVASC TAB 5 MG PO SCH (20:24)
[2020-02-14] MEDS: SNACK - Diabetic Appropriate PO SCH (21:02)
[2020-02-14] MEDS: COUMADIN TAB 5 MG (JANTOVEN) PO SCH (21:17)
[2020-02-15] MEDS: KLONOPIN TAB 1 MG PO PRN ×2 (01:19→20:37)
[2020-02-15 04:39] LABS: BILIRUBIN,URINE NEGATIVE (NEGATIVE); BLOOD/HEMOGLOBIN,URINE 1+ (NEGATIVE); GLUCOSE, URINE NEGATIVE (NEGATIVE); KETONES,URINE 1+ (NEGATIVE); LEUKOCYTE ESTERASE ,URINE NEGATIVE (NEGATIVE); NITRITES,URINE NEGATIVE (NEGATIVE); PROTEIN,URINE NEGATIVE (NEGATIVE); UROBILINOGEN,URINE NORMAL (NORMAL)
[2020-02-15 04:54] LABS: APPEARANCE,URINE CLEAR (CLEAR); COLOR,URINE YELLOW (YELLOW)
[2020-02-15 04:55] LABS: BACTERIA,URINE 1+ /HPF (NEGATIVE); HYALINE CASTS, URINE RARE /LPF (NEGATIVE); RBC,URINE NONE SEEN /HPF (0-3); SQUAMOUS EPITHELIAL CELL,UR RARE /HPF (NEGATIVE)
[2020-02-15 05:11] LABS: BASOPHILS # (AUTO) 0.1 X10^3/uL (0.0-0.1); BASOPHILS % (AUTO) 0.7 % (0.2-1.0); EOSINOPHILS # (AUTO) 0.1 x10^3/uL (0.0-0.2); EOSINOPHILS % (AUTO) 0.9 % (0.9-2.9); HEMATOCRIT 37.1 % (36.0-47.0); HEMOGLOBIN 12.4 g/dL (12.0-16.0); LYMPHOCYTES # (AUTO) 1.7 X10^3/uL (1.3-2.9); LYMPHOCYTES % (AUTO) 12.4 % (21.0-51.0); MEAN CORPUSCULAR HEMOGLOBIN 29.6 pg (27.0-34.0); MEAN CORPUSCULAR HGB CONC 33.4 g/dL (33.0-35.0); MEAN CORPUSCULAR VOLUME 88.8 fL (80.0-100.0); MEAN PLATELET VOLUME 8.2 fL (7.4-11.0); MONOCYTES # (AUTO) 1.2 x10^3/uL (0.3-0.8); MONOCYTES % (AUTO) 8.9 % (0.0-13.0); NEUTROPHILS # (AUTO) 10.6 x10^3/uL (2.2-4.8); NEUTROPHILS % (AUTO) 77.1 % (42.0-75.0); PLATELET COUNT 254 X10^3/uL (150.0-450.0); RED BLOOD COUNT 4.18 X10^6/uL (3.5-5.4); WHITE BLOOD COUNT 13.8 X10^3/uL (3.6-10.0)
[2020-02-15 05:28] LABS: ALANINE AMINOTRANSFERASE 15 Units/L (12-78); ALBUMIN 3.4 g/dL (3.4-5.0); ALKALINE PHOSPHATASE 87 Units/L (46-116); ASPARTATE AMINO TRANSFERASE 25 Units/L (15-37); BLOOD UREA NITROGEN 22 mg/dL (7-18); CALCIUM 9.1 mg/dL (8.5-10.1); CARBON DIOXIDE 21.8 mmol/L (21-32); CHLORIDE 107 mmol/L (98-107); COR NA(FOR HYPERGLY) 143 mmol/L (136-145); CREATININE 1.31 mg/dL (0.55-1.02); SODIUM 142 mmol/L (136-145); TOTAL PROTEIN 7.5 g/dL (6.4-8.2); eGFR NON BLACK RACES 42 (>60)
[2020-02-15] MEDS ORDERED: ZESTRIL TAB 20 MG ONE ×2 (07:38→19:49)
[2020-02-15] MEDS ORDERED: VITAMIN D (1.25MG) PO SCH (08:35)
[2020-02-15] MEDS: ZESTRIL TAB 20 MG PO SCH ×2 (08:42→20:34)
[2020-02-15] MEDS: AMARYL TAB 4 MG PO SCH (08:42)
[2020-02-15] MEDS: CORDARONE TAB 200 MG PO SCH (08:43)
[2020-02-15] MEDS: DIAMOX PO SCH (08:44)
[2020-02-15] MEDS: CHLORTHALIDONE PO SCH (08:44)
[2020-02-15] MEDS: K-DUR TAB 20 MEQ PO SCH (08:44)
[2020-02-15] MEDS: ZOLOFT PO SCH (08:45)
[2020-02-15] MEDS: LASIX PO SCH (08:45)
[2020-02-15] MEDS: TOPROL XL PO SCH (08:45)
[2020-02-15] MEDS: ROCEPHIN VIAL 1 GRAM 1 G in NS 100 ML IV + SPIKE MINIBAG* 100 ML IV SCH (11:00)
--- NOTE | 2020-02-15 13:06 | RAD ---
HISTORYCHFSTUDYCHEST, 1 VIEWCOMPARISONPrevious chest radiograph from 02/12/2020FINDINGSGeneralized cardiomegaly is seen. No significant vascular congestion however. Lungs are clear with no infiltrate or significant effusion on either side. Bony thorax is unremarkable.IMPRESSIONStable cardiomegaly. However no acute superimposed abnormality is seen on this examElectronically signed by: HEMANTH HAMILTON (Feb 15, 2020 13:04:10)
[2020-02-15] MEDS ORDERED: BUTT CREAM (COMPOUND) ONE (16:20)
[2020-02-15] MEDS ORDERED: NYSTATIN POWDER ONE (16:21)
[2020-02-15] MEDS: NYSTATIN POWDER TOP SCH ×2 (16:41→22:15)
[2020-02-15] MEDS: NS 1000 ML 1,000 ML IV SCH ×2 (18:08→22:14)
[2020-02-15] MEDS: NORVASC TAB 5 MG PO SCH (20:34)
[2020-02-15] MEDS: SNACK - Diabetic Appropriate PO SCH (22:14)
[2020-02-15] MEDS: COUMADIN TAB 5 MG (JANTOVEN) PO SCH (22:15)
[2020-02-16] MEDS: NS 1000 ML 1,000 ML IV SCH ×2 (02:09→09:11)
[2020-02-16 06:25] LABS: BASOPHILS % (AUTO) 0.2 % (0.2-1.0); EOSINOPHILS % (AUTO) 0.4 % (0.9-2.9); HEMATOCRIT 38.9 % (36.0-47.0); HEMOGLOBIN 12.5 g/dL (12.0-16.0); LYMPHOCYTES # (AUTO) 1.5 X10^3/uL (1.3-2.9); LYMPHOCYTES % (AUTO) 11.8 % (21.0-51.0); MEAN CORPUSCULAR HGB CONC 32.2 g/dL (33.0-35.0); MEAN CORPUSCULAR VOLUME 90.1 fL (80.0-100.0); MEAN PLATELET VOLUME 8.3 fL (7.4-11.0); MONOCYTES # (AUTO) 1.6 x10^3/uL (0.3-0.8); MONOCYTES % (AUTO) 12.1 % (0.0-13.0); NEUTROPHILS # (AUTO) 9.8 x10^3/uL (2.2-4.8); NEUTROPHILS % (AUTO) 75.5 % (42.0-75.0); PLATELET COUNT 241 X10^3/uL (150.0-450.0); RED BLOOD COUNT 4.32 X10^6/uL (3.5-5.4); RED CELL DISTRIBUTION WIDTH 16.2 % (11.6-16.5)
[2020-02-16 06:33] LABS: ALBUMIN 3.2 g/dL (3.4-5.0); CALCIUM 8.9 mg/dL (8.5-10.1); CARBON DIOXIDE 25.8 mmol/L (21-32); COR CA(FOR HYPOALB) 9.5 mg/dL (8.5-10.1); CREATININE 1.3 mg/dL (0.55-1.02); TOTAL PROTEIN 7.5 g/dL (6.4-8.2)
[2020-02-16] MEDS ORDERED: KLOR-CON PO PRN (06:38)
[2020-02-16] MEDS ORDERED: K-DUR TAB 20 MEQ PO PRN (06:38)
[2020-02-16] MEDS ORDERED: POTASSIUM CHL 60 MEQ/NS 0.45% 500 ML IV PRN (06:38)
[2020-02-16] MEDS ORDERED: POTASSIUM CHL 40 MEQ/NS 0.45% 500 ML IV PRN (06:38)
[2020-02-16] MEDS ORDERED: MICRO K EXTEN CAP 10 MEQ PO PRN (06:38)
[2020-02-16] MEDS ORDERED: POTASSIUM CHLORIDE LIQ 20 MEQ UDC PO PRN (06:38)
[2020-02-16] MEDS ORDERED: K-RIDER 10 MEQ/NS 100 ML 10 MEQ/100 ML BAG IV PRN (06:38)
[2020-02-16] MEDS ORDERED: ZESTRIL TAB 20 MG ONE (08:27)
[2020-02-16] MEDS: AMARYL TAB 4 MG PO SCH (08:30)
[2020-02-16] MEDS: DIAMOX PO SCH (08:30)
[2020-02-16] MEDS: CHLORTHALIDONE PO SCH (08:30)
[2020-02-16] MEDS: K-DUR TAB 20 MEQ PO SCH (08:31)
[2020-02-16] MEDS: NYSTATIN POWDER TOP SCH (08:32)
[2020-02-16] MEDS: ROCEPHIN VIAL 1 GRAM 1 G in NS 100 ML IV + SPIKE MINIBAG* 100 ML IV SCH (08:32)
[2020-02-16] MEDS: TOPROL XL PO SCH (08:32)
[2020-02-16] MEDS: ZESTRIL TAB 20 MG PO SCH (08:33)
[2020-02-16] MEDS: ZOLOFT PO SCH (08:33)
[2020-02-16] MEDS: CORDARONE TAB 200 MG PO SCH (08:37)
[2020-02-16 09:04] VITALS: BP 120/75
[2020-02-16] MEDS: LASIX PO SCH (09:05)
== END 2020-02-16 11:00 ==
LOC: ER 09:39 → MED/SURG 09:39
PROVIDERS: ADMIT Internal Medicine; ATTEND Internal Medicine
DX: R53.1 Weakness; R41.82 Altered mental status, unspecified; I25.118 Atherosclerotic heart disease of native coronary artery with other forms of angina pectoris; W18.39XA Other fall on same level, initial encounter; F05 Delirium due to known physiological condition; I50.9 Heart failure, unspecified; I48.91 Unspecified atrial fibrillation; E11.43 Type 2 diabetes mellitus with diabetic autonomic (poly)neuropathy; N39.0 Urinary tract infection, site not specified; R26.89 Other abnormalities of gait and mobility; Z20.828 Contact with and (suspected) exposure to other viral communicable diseases; K21.9 Gastro-esophageal reflux disease without esophagitis; R19.7 Diarrhea, unspecified; E11.65 Type 2 diabetes mellitus with hyperglycemia; M15.9 Polyosteoarthritis, unspecified; M25.512 Pain in left shoulder; Z79.1 Long term (current) use of non-steroidal anti-inflammatories (NSAID); I11.0 Hypertensive heart disease with heart failure